=== PATIENT | female | born 1975 | race Caucasian/White ===

== ENCOUNTER → 2017-07-28 14:14 | Outpatient (CLI) | payer BC, SELFPAY ==
--- NOTE | 2017-07-28 14:20 | RAD_ITS ---
STUDY: X-RAY - LEFT HAND REASON FOR EXAM: Female, 41 years old. Pain in the second finger TECHNIQUE: Three view(s) of the hand were obtained. COMPARISON: None. FINDINGS: Bones: There are no acute osseous abnormalities. Joints: The visualized joints are unremarkable. Soft tissues: The soft tissues are unremarkable. Foreign body: None RAD/Hand Min 3 Views IMPRESSION: No significant abnormalities are seen radiographically in the left hand. Electronically Signed: Keely Armendariz MD at 8:38 EDT Tel Direct: [phone], Service support ,
== END ==
PROVIDERS: Family Provider Family Medicine; PCP Family Medicine; Visit Provider Family Medicine
DX: M79.645 Pain in left finger(s) (principal)
CPT/HCPCS: 73130

== ENCOUNTER → 2017-08-25 15:53 | Outpatient (CLI) | payer BC, SELFPAY ==
--- NOTE | 2017-08-25 15:55 | BI_ITS ---
MAMMOGRAPHY - BILATERAL SCREENING REASON FOR EXAM: Female, 42 years old. Routine annual screening examination. PERTINENT HISTORY: Mother with breast cancer. TECHNIQUE: Digital bilateral breast sosa (3D mammographic acquisition) in the CC and MLO projections. 2-D mediolateral oblique (MLO) and craniocaudad (CC) views of both breasts were obtained. CAD: Full Field Digital Mammography with Computer Added Detection was performed. COMPARISON: None. Baseline examination. FINDINGS: Breast Composition: There are scattered areas of fibroglandular density. There are no dominant masses or suspicious calcifications. No other significant abnormalities are identified. BI/SCREENING MAMM (CAD), BILAT IMPRESSION: Negative screening mammogram. Yearly followup mammogram recommended. (A) ASSESSMENT CATEGORY: BIRADS Category 1: Negative. A letter regarding these results will be sent to the patient by the facility within 30 days. Approximately 10% of breast cancers are not detected by mammography. A normal mammogram should not delay biopsy of a clinically suspicious abnormality. [id number] Electronically Signed: Gordon Grant MD at 8:34 EDT Tel [phone], Service support ,
== END ==
PROVIDERS: Family Provider Family Medicine; PCP Family Medicine; Visit Provider Obstetrics & Gynecology
DX: Z12.31 Encounter for screening mammogram for malignant neoplasm of breast (principal)
CPT/HCPCS: 77063; 77067

== ENCOUNTER → 2017-10-14 11:34 | Outpatient (CLI) | payer BC, SELFPAY ==
[2017-10-16 13:03] LABS: HPV Reflexed? NOT INDICATED
== END ==
PROVIDERS: Visit Provider Obstetrics & Gynecology
DX: Z12.4 Encounter for screening for malignant neoplasm of cervix (principal)
CPT/HCPCS: 88175; G0145

== ENCOUNTER → 2018-04-15 07:57 | Outpatient (CLI) | payer BC, SELFPAY ==
--- NOTE | 2018-04-15 08:01 | US_ITS ---
STUDY: ULTRASOUND OF THE FEMALE PELVIS - COMPLETE REASON FOR EXAM: Female, 42 years old. Irregular bleeding LMP: TECHNIQUE: Transabdominal and Transvaginal TECHNICAL QUALITY: Adequate. COMPARISON: None. FINDINGS: The uterus is anteverted and is in a midline position. The uterus measures 12.7 x 5.6 x 5.0 cm. There are Nabothian cysts of the cervix. The endometrium measures 5 mm in thickness, and is hyperechoic. There is no demonstrated endometrial mass. There is heterogeneous echotexture of the myometrium with 1.6 cm hypoechoic mass consistent with fibroid. I.U.D. - The patient does not have an I.U.D. The right ovary is visualized. The right ovary measures 3.6 x 1.9 x 1.8 cm. There is no right ovarian cyst or ovarian mass. There is no visualized right adnexal mass or complex lesion. There is normal arterial and normal venous vascularity. The left ovary is visualized. The left ovary measures 3.0 x 2.5 x 2.3 cm. There is no left ovarian cyst or ovarian mass. There is no visualized left adnexal mass or complex lesion. There is normal arterial and normal venous vascularity. There is no fluid in the cul-de-sac. The pre void volume of the bladder was 360 ml. US/Transvaginal Non- IMPRESSION: Uterine fibroid. Electronically Signed: Sam Velez MD at 9:58 EST , Service support ,
--- NOTE | 2018-04-15 08:01 | US_ITS ---
STUDY: ULTRASOUND OF THE FEMALE PELVIS - COMPLETE REASON FOR EXAM: Female, 42 years old. Irregular bleeding LMP: TECHNIQUE: Transabdominal and Transvaginal TECHNICAL QUALITY: Adequate. COMPARISON: None. FINDINGS: The uterus is anteverted and is in a midline position. The uterus measures 12.7 x 5.6 x 5.0 cm. There are Nabothian cysts of the cervix. The endometrium measures 5 mm in thickness, and is hyperechoic. There is no demonstrated endometrial mass. There is heterogeneous echotexture of the myometrium with 1.6 cm hypoechoic mass consistent with fibroid. I.U.D. - The patient does not have an I.U.D. The right ovary is visualized. The right ovary measures 3.6 x 1.9 x 1.8 cm. There is no right ovarian cyst or ovarian mass. There is no visualized right adnexal mass or complex lesion. There is normal arterial and normal venous vascularity. The left ovary is visualized. The left ovary measures 3.0 x 2.5 x 2.3 cm. There is no left ovarian cyst or ovarian mass. There is no visualized left adnexal mass or complex lesion. There is normal arterial and normal venous vascularity. There is no fluid in the cul-de-sac. The pre void volume of the bladder was 360 ml. US/Pelvic (Non ) IMPRESSION: Uterine fibroid. Electronically Signed: Sam Velez MD at 9:58 EST , Service support ,
[2018-04-15 09:41] LABS: T4 Free Direct 1.45 ng/dL (0.76-1.46); Thyroid Stim Hormone (TSH) 1.14 uIU/mL (0.358-3.74)
--- OUTSIDE RECORDS SUMMARY | 2018-06-10 07:45 | XMS RPT_ITS ---
:1975 Author Organization OHIP Support Name Relationship Address Phone BIRGITKYARA Unavailable [address] + [place] [address] MIRAMONTES LIVESTOCK Unavailable [address] + [place] [address] KYARA GENAO Unavailable [address] + [place] [address] [employer]IRAMONTES [employer]IVEST[employer] Unavailable [address] + [place] [address] KYARA GENAO Unavailable [address] + [place] [address] MIRAMONTES LIVESTOCK Unavailable [address] + [place] [address] KYARA GENAO Unavailable [address] + [place] [address] MIRAMONTES LIVESTOCK Unavailable [address] + [place] [address] [employer] Unavailable [address] [place] [address] KYARA GENAO Unavailable [address] + [place] [address] [employer] Unavailable [address] + [address] [place] [address] KYARA GENAO Unavailable [address] + [place] [address] [employer] Unavailable [address] + [address] [place] [address] KYARA GENAO Unavailable [address] + [place] [address] [employer] Unavailable [address] + [address] [place] [address] KYARA GENAO Unavailable [address] + [place] [address] [employer] Unavailable [address] + [address] [place] [address] KYARA GENAO Unavailable [address] + [place] [address] [employer] Unavailable [address] + [address] [place] [address] KYARA GENAO Unavailable [address] + [place] [address] Care Team Providers Name Role Phone Roxann Haji Attending Unavailable Jerome, Roberto Referring Unavailable Marcanthony, Roxann Attending Unavailable Marcanthony, Roxann Referring Unavailable Jerome, Roberto Primary Care Unavailable Jerome, Roberto Attending Unavailable Jerome, Roberto Referring Unavailable Jerome, Roberto Primary Care Unavailable Brandon Blankenship Attending Unavailable Jerome, Roberto Primary Care Unavailable Socorro Quiles Attending Unavailable Jerome, Roberto Referring Unavailable Marckenyaony, Roxann Attending Unavailable Marcanthony, Roxann Referring Unavailable Jerome, Roberto Primary Care Unavailable Brandon Blankenship Attending Unavailable Kb, Socorro Attending Unavailable Jerome, Roberto Referring Unavailable Marckenyaony, Roxann Attending Unavailable Jerome, Roberto Referring Unavailable Marckenyaony, Roxann Attending Unavailable Marcanthony, Roxann Referring Unavailable Jerome, Roberto Primary Care Unavailable PROBLEMS PROBLEMS DATE TYPE CONDITION / CODE ATTENDING STATUS SOURCE 04/27/2018 Unknown J06.9 - Acute Marcanthony, Active [place] upper respiratory Roxann Formerly [facility] infection, Hospital unspecified / Repository J06.9(ICD-10) 04/15/2018 Unknown N93.9 - Abnormal Marcanthony, Active [place] uterine and Roxann Community vaginal bleeding, Hospital unspecified / Repository N93.9(ICD-10) 10/15/2017 Unknown Z12.4 - Encounter Brandon Blankenship Active [place] for screening for Community malignant Hospital neoplasm of Repository cervix / Z12.4(ICD-10) 07/28/2017 Unknown M79.645 - Pain in JeromeRoberto collins Active [place] left finger(s) / Community M79.645(ICD-10) Hospital Repository PROCEDURES PROCEDURES No Procedure Records FoundRESULTS RESULTS LIPID PROFILE Collected: 05/04/2018 Status: F Source: [place] 8:04 AM [facility] REPOSITORY TYPE CODE TESTS RESULT OUT OF RANGE REFERENCE UNITS LAB L501.4900 200 mg/dL High CHOL 267 Result Comment: <200 mg/dL Desirable 200-240 mg/dL Borderline >240 mg/dL High Risk LAB L501.5000 mg/dL High TRIG 250 Result Comment: The drugs N-Acetylcysteine and Metamizole may falsely depress this assay. Serum Triglycerides Reference Interval Normal <150 mg/dL Borderline high 150 - 199 mg/dL High 200 - 499 mg/dL Very High > or = 500 mg/dL LAB L501.6400 mg/dL Normal HDL 66 Result Comment: The drugs N-Acetylcysteine and Metamizole may falsely depress this assay. Reference Range HDL <40 mg/dL Low HDL Cholesterol HDL >or= 60 mg/dL High HDL Cholesterol LAB L501.6500 0-130 mg/dL High LDL 151 LAB L501.6600 5-40 mg/dL High VLDL 50 Performed By: #### L500.4100, L501.0100 #### [facility] [address] [place], [address] GLUCOSE Collected: 05/04/2018 Status: F Source: [place] 8:04 AM [facility] REPOSITORY TYPE CODE TESTS RESULT OUT OF RANGE REFERENCE UNITS LAB L501.0100 74-106 mg/dL Normal GLU 93 Result Comment: Please note revised GLUCOSE reference range effective 2017. Performed By: #### L500.4100, L501.0100 #### [facility] [address] [place], [address] [employer] OFFICE VISIT Observed: 04/27/2018 Status: F Source: [place] REPORT 10:09 AM [facility] REPOSITORY [facility] [address] [place] [address] OFFICE VISIT Date of Service: 04/27/18 MR#: [id number] Acct: [id number] Name: EMILEE GENAO Rep #: [id number] : 1975 Provider: Roxann Haji MD Age/Sex: 42/F Location: [facility] [place] Status: Signed Intake Vital Signs04/27/18 Height 5 ft 5 in 04/27/18 Blood Pressure 122/78 H Intake Visit Reasons: EMB Teachers' Assistant Required: No Is patient in pain?: No Allergies penicillin V Allergy (Intermediate, Verified 04/27/18 08:10) Nausea, stomach cramps, hives Medications loratadine 10 mg tablet 10 mg PO QDAY #30 tab 07/14/17 [Rx Confirmed 04/27/18] montelukast 10 mg tablet 10 mg PO QHS #90 tab 08/28/17 [Rx Confirmed 04/27/18] azelastine-fluticasone 137 mcg-50 mcg/spray nasal spray 1 spray INTRANASAL Q12H 09/30/17 [History Confirmed 04/27/18] levothyroxine 175 mcg tablet 175 mcg PO QDAY 09/30/17 [History Confirmed 04/27/18] ranitidine 150 mg tablet 150 mg PO QDAY 09/30/17 [History Confirmed 04/27/18] cyclobenzaprine 10 mg tablet 10 mg PO TID PRN #30 tab 03/30/18 [Rx Confirmed 04/27/18] misoprostol 200 mcg tablet 200 mcg PO .complex #2 tab 04/26/18 [Rx Confirmed 04/27/18] norgestimate 0.25 mg-ethinyl estradiol 35 mcg tablet 1 tab PO QDAY #84 tab 04/27/18 [Rx Confirmed 04/27/18] Is last menstrual period known: No Post menopausal: No Patient : No : No PFSH PFSH Medical History Thyroid dysfunction (Chronic) Elevated cholesterol (Chronic) Chronic cough (Chronic) Allergic rhinitis (Chronic) PND (post-nasal drip) (Chronic) Headache (Chronic) Upper respiratory infection (Resolved) Endometriosis (Acute) Surgical History History of endometrial ablation (Resolved) History of dilatation and curettage (Resolved) History of section (Resolved) History of tonsillectomy and adenoidectomy (Resolved) Family History Father Cancer Mother Hypertension Grandmother Cancer Lung CA Breast cancer Social History Smoking Status: Never smoker second hand exposure: No alcohol intake: current alcohol intake frequency: holidays/special occasions only substance use type: does not use caffeine: Yes what type of physical activity do you participate in: none additional social history: Wayne Garza Patient works at [employer] Pregancy History 5 Elective abortions Hx Para 1 Spontaneous abortions Past Pregnancies Del. DateName GA/Weeks Outcome Route Bth WeighInfant GeLabor LgtAnesthesiDel LocatProvider FOB t n h a n HPI EMB: Details: EMILEE GENAO is a 42 year old who presents for fu of AUB. she has heavy painful and irregular menses. she has a history of endometriosis. she has had multiple laparoscopies and US shows adenomyosis. she has had an ablation in the past. Female Reproductive History Cycle Length: 21-35 Bleeding Duration: 5 associated symptoms: dysmenorrhea, bloating Questions: Metorrhagia: No, Sexually active: Yes, Dyspareunia: No, PCB: No ROS Const Constitutional: Reports system reviewed and no additional complaints, except as docu; denies chills, fever(s), weight loss or weight gain GI GI: Reports cramping, bloating and as per HPI; denies vomiting, nausea, constipation or abdominal pain : Reports as per HPI; denies vaginal dryness, vaginal discharge, urinary urgency, urinary frequency or urinary incontinence Exam Const General: cooperative, healthy appearing, comfortable, well developed Orientation: alert [facility] Head: normal to inspection Resp Effort AND Inspection: normal respiratory effort GI Inspection: normal to inspection, non-distended Palpation: soft, no hepatosplenomegaly, no guarding External Female Exam: normal external appearance, normal appearance of the urethra Urethra: normal appearance of the urethra Speculum Exam - Vagina: normal appearance of the vagina, normal vaginal discharge, no lesions Speculum Exam - Cervix: normal appearance of the cervix, nontender Bimanual Exam- Vagina AND Uterus: No cervical tenderness, normal bimanual exam, uterine mobility normal, uterine consistency normal, uterine shape normal, uterine size normal, uterus non-tender Bimanual Exam- Adnexa, other: normal adnexae, no adnexal masses Office Procedures Endometrial Biopsy Endometrial Biopsy Test: Yes Not Applicable Consent Signed: Yes Time out checklist: patient, procedure, site marked/identified, positioning of patient, supplies available, allergies confirmed, team agrees on procedure Time out time: 10:07 tenaculum used: Yes dilator used: No Details: Cervix prepped with betadine and pipelle inserted into uterus without complication. Specimen obtained and sent to lab for analysis. All instruments removed from vagina without complications. Excellent hemostasis noted. Assessment AND Plan Problems 1. Abnormal uterine bleeding N93.9 continuous ocp, if no improvement consider depot lupron or LAVHBS(O) 2. Endometriosis N80.9 Plan discussed options and will plan for continuous ocp fu in 3 months Orders Orders: Medications New: norgestimate-ethinyl estradiol 0.25-35 mg-mcg (Sprintec (28)) 1 tab PO QDAY 84 tabs 5RF take only active pills, discard inactive and start new pack. if bleeding is longer > 7 days take four days off and restart active pills. Coding Level of Care Code Off vis,est,level 4 Diagnoses Abnormal uterine bleeding N93.9 Endometriosis N80.9 Additional Codes Endometrial Biopsy (67731) 04/27/18 1009 <Electronically signed by Roxann Haji MD> Date Roxann Haji MD Cosigner Signature: Date (if applicable) CC: ENDOMETRIAL BX/CURETTINGS Observed: 04/27/2018 Status: F Source: [place] 12:00 AM [facility] REPOSITORY Patient: EMILEE GENAO : 1975 (42/F) Acct Num: [id number] Phys: Adithya KOVACS,Roxann Unit Num: [id number] Loc: [facility] Specimen: [id number] Received: 04/27/18 1418 Spec Type: ENDOM BX/C TISSUES 1 TISSUES: Endometrium, NOS GROSS DESCRIPTION Received is one container labeled with the patient's name and not further designated. The specimen consists of multiple fragments of hemorrhagic soft tissue that in aggregate measure 2.5 x 1 x 0.1 cm. The specimen is totally submitted in one cassette. / SJ:osiel 04/27/18 TC:5 CPT: 73428 HEADER OPERATION: Endometrial biopsy PRE-OP DIAGNOSIS: Abnormal uterine bleeding TISSUE SUBMITTED: Endometrial lining MICROSCOPIC DESCRIPTION Slides are reviewed. MICROSCOPIC DIAGNOSIS Endometrium, biopsy: Superficial strips of secretory endometrium. Rare strips of benign superficial endocervix. AM:osiel 04/28/18 Signed [facility] 04/28/18 <signature on file> Performed By: #### PEMB #### [facility] [address] [place], [address] THYROID STIM HORMONE Collected: 04/15/2018 Status: F Source: [place] (TSH) 8:44 AM [facility] REPOSITORY TYPE CODE TESTS RESULT OUT OF RANGE REFERENCE UNITS LAB L501.9520 0.358-3.74 uIU/mL Normal TSH 1.14 Performed By: #### L501.9520, L506.0400 #### [facility] [address] [facility] [place], [address] T4 FREE DIRECT Collected: 04/15/2018 Status: F Source: [place] 8:44 AM [facility] REPOSITORY TYPE CODE TESTS RESULT OUT OF RANGE REFERENCE UNITS LAB L506.0400 0.76-1.46 ng/dL Normal T4 FREE 1.45 DIRECT Performed By: #### L501.9520, L506.0400 #### [facility] [address] [facility] [place], [address] PELVIC (NON ) Observed: 04/15/2018 Status: F Source: [place] 8:01 AM [facility] REPOSITORY [facility] Imaging Services [address] [place] [address] Pelvic (Non ) MR#: [id number] Acct: [id number] Name: EMILEE GENAO Rep #: [id number] : 1975 F 42 From: Sam Velez MD PCP: Roberto Cano MD Status: REG CLI Study: Pelvic (Non ) Date of Exam: 04/15/18 Exam# [id number] Ordering Dr: Roxann Haji MD STUDY: ULTRASOUND OF THE FEMALE PELVIS - COMPLETE REASON FOR EXAM: Female, 42 years old. Irregular bleeding LMP: TECHNIQUE: Transabdominal and Transvaginal TECHNICAL QUALITY: Adequate. COMPARISON: None. FINDINGS: The uterus is anteverted and is in a midline position. The uterus measures 12.7 x 5.6 x 5.0 cm. There are Nabothian cysts of the cervix. The endometrium measures 5 mm in thickness, and is hyperechoic. There is no demonstrated endometrial mass. There is heterogeneous echotexture of the myometrium with 1.6 cm hypoechoic mass consistent with fibroid. I.U.D. - The patient does not have an I.U.D. The right ovary is visualized. The right ovary measures 3.6 x 1.9 x 1.8 cm. There is no right ovarian cyst or ovarian mass. There is no visualized right adnexal mass or complex lesion. There is normal arterial and normal venous vascularity. The left ovary is visualized. The left ovary measures 3.0 x 2.5 x 2.3 cm. There is no left ovarian cyst or ovarian mass. There is no visualized left adnexal mass or complex lesion. There is normal arterial and normal venous vascularity. There is no fluid in the cul-de-sac. The pre void volume of the bladder was 360 ml. US/Pelvic (Non ) IMPRESSION: Uterine fibroid. Electronically Signed: Sam Velez MD at 9:58 EST , Service support , CC: Roberto Cano MD; Roxann Haji MD Institutional Nutrition Consultant: Signed TRANSVAGINAL Observed: 04/15/2018 Status: F Source: [place] NON- 8:01 AM [facility] REPOSITORY [facility] Imaging Services [address] [place] [address] Transvaginal Non- MR#: [id number] Acct: [id number] Name: EMILEE GENAO Rep #: [id number] : 1975 F 42 From: Sam Velez MD PCP: Roberto Cano MD Status: REG CLI Study: Transvaginal Non- Date of Exam: 04/15/18 Exam# [id number] Ordering Dr: Roxann Haji MD STUDY: ULTRASOUND OF THE FEMALE PELVIS - COMPLETE REASON FOR EXAM: Female, 42 years old. Irregular bleeding LMP: TECHNIQUE: Transabdominal and Transvaginal TECHNICAL QUALITY: Adequate. COMPARISON: None. FINDINGS: The uterus is anteverted and is in a midline position. The uterus measures 12.7 x 5.6 x 5.0 cm. There are Nabothian cysts of the cervix. The endometrium measures 5 mm in thickness, and is hyperechoic. There is no demonstrated endometrial mass. There is heterogeneous echotexture of the myometrium with 1.6 cm hypoechoic mass consistent with fibroid. I.U.D. - The patient does not have an I.U.D. The right ovary is visualized. The right ovary measures 3.6 x 1.9 x 1.8 cm. There is no right ovarian cyst or ovarian mass. There is no visualized right adnexal mass or complex lesion. There is normal arterial and normal venous vascularity. The left ovary is visualized. The left ovary measures 3.0 x 2.5 x 2.3 cm. There is no left ovarian cyst or ovarian mass. There is no visualized left adnexal mass or complex lesion. There is normal arterial and normal venous vascularity. There is no fluid in the cul-de-sac. The pre void volume of the bladder was 360 ml. US/Transvaginal Non- IMPRESSION: Uterine fibroid. Electronically Signed: Sam Velez MD at 9:58 EST , Service support , CC: Roberto Cano MD; Roxann Haji MD Institutional Nutrition Consultant: Signed [employer] OFFICE VISIT Observed: 03/30/2018 Status: F Source: [place] REPORT 2:06 AM [facility] [address] [place] [address]. [address] [place] [address] OFFICE VISIT Date of Service: 03/25/18 MR#: [id number] Acct: [id number] Name: EMILEE GENAO Rep #: [id number] : 1975 Provider: Roxann Haji MD Age/Sex: 42/F Location: [facility] [place] Status: Signed Intake Vital Signs03/25/18 Height 5 ft 5 in 03/25/18 Weight: 256 lb 03/25/18 Body Mass Index (BMI) 42.5 Intake Visit Reasons: DISCUSS HORMONES Chief Complaint: Irregular Menses, Hormone Consult Teachers' Assistant Required: No Is patient in pain?: No Allergies penicillin V Allergy (Intermediate, Verified 03/25/18 16:38) Nausea, stomach cramps, hives Medications loratadine 10 mg tablet 10 mg PO QDAY #30 tab 07/14/17 [Rx Confirmed 03/25/18] montelukast 10 mg tablet 10 mg PO QHS #90 tab 08/28/17 [Rx Confirmed 03/25/18] azelastine-fluticasone 137 mcg-50 mcg/spray nasal spray 1 spray INTRANASAL Q12H 09/30/17 [History Confirmed 03/25/18] levothyroxine 175 mcg tablet 175 mcg PO QDAY 09/30/17 [History Confirmed 03/25/18] ranitidine 150 mg tablet 150 mg PO QDAY 09/30/17 [History Confirmed 03/25/18] cyclobenzaprine 10 mg tablet 10 mg PO TID PRN #30 tab 03/30/18 [Rx Confirmed 03/30/18] Is last menstrual period known: Yes Last Menstral Period: 03/18/18 Post menopausal: No Patient : No : No [facility] Medical History Thyroid dysfunction (Chronic) Elevated cholesterol (Chronic) Chronic cough (Chronic) Allergic rhinitis (Chronic) PND (post-nasal drip) (Chronic) Headache (Chronic) Upper respiratory infection (Resolved) Surgical History History of endometrial ablation (Resolved) History of dilatation and curettage (Resolved) History of section (Resolved) History of tonsillectomy and adenoidectomy (Resolved) Family History Father Cancer Mother Hypertension Grandmother Cancer Lung CA Breast cancer Social History Smoking Status: Never smoker second hand exposure: No alcohol intake: current alcohol intake frequency: holidays/special occasions only substance use type: does not use caffeine: Yes what type of physical activity do you participate in: none additional social history: Wayne Garza Patient works at [employer] HPI DISCUSS HORMONES: Details: EMILEE GENAO is a 42 year old who presents for hormonal issues. she has a history of infertility and endometriosis. she has had adhesiolysis in the past multiple time. she has a history of severe lower pelvic pain and dysmenorrhea. she has had an ablation and didn't have bleeding for 7 years and then now she will have a period for every 1-2 months and it lasts two weeks. she hasn't had an ultrasound. she hasn't had anything checked. Female Reproductive History Last Menstral Period: 03/18/18 Cycle Length: 21-35 Bleeding Duration: 14 Questions: PCB: Yes (did previously) Menopausal Symptoms: No hot flashes, No night sweats, No weight change, No mood changes, No difficulty concentrating, No sleep problems, No change in libido Pregancy History 5 Elective abortions Hx Para 1 Spontaneous abortions Past Pregnancies Del. DateName GA/Weeks Outcome Route Bth WeighInfant GeLabor LgtAnesthesiDel LocatProvider FOB t n h a n ROS Const Constitutional: Denies night sweats ENT ENT: Denies dry mouth GI GI: Reports as per HPI and abdominal pain; denies vomiting, nausea or constipation : Denies hot flashes Psych Psych: Denies difficulty concentrating or change in sex drive Exam Const General: cooperative, healthy appearing, comfortable, no acute distress, well developed Nutritional Appearance: average body habitus Orientation: alert HENMT Head: normal to inspection, normocephalic Ears: hearing grossly normal bilaterally, external ears normal Nose: external nose normal, nares normal Face and sinus: normal facial exam Neck Neck: normal visual inspection, trachea midline, no lymphadenopathy Thyroid: thyroid normal Resp Effort AND Inspection: normal respiratory effort Musc Other: gross motor intact no deficits, full bilateral strength Skin General: no rashes or lesions noted Neuro Motor: muscle tone normal throughout Assessment AND Plan Problems 1. Abnormal uterine bleeding N93.9 cbc tsh ultrasound EMB discussed flexeril PRN, offered hormones, lysteda, may need surgery Plan recommend evaluation of AUB and fu for emb and discuss final therapy Orders Orders: Medications New: Coding Level of Care Code Off vis,new,level 3 Diagnoses Abnormal uterine bleeding N93.9 03/30/18 0206 <Electronically signed by Roxann Haji MD> Date Roxann Haji MD Cosigner Signature: Date (if applicable) CC: PULMONARY VISIT REPORT Observed: 03/12/2018 Status: F Source: [place] 4:09 PM [facility] REPOSITORY [facility] [address] [place] [address] OFFICE VISIT Date of Service: 03/12/18 MR#: [id number] Acct: [id number] Name: EMILEE GENAO Rep #: [id number] : 1975 Provider: Socorro Quiles Age/Sex: 42/F Location: [facility] [place] Status: Signed Assessment AND Plan 1. Acute non-recurrent maxillary sinusitis J01.00 Plan Somewhat improved, Kenalog injection in the office today followed by a steroid burst. She has been encouraged to contact the office with an update on Thursday. 2. Allergic rhinitis due to animal hair and dander J30.81 Plan She now has a new job and after this acute exacerbation may likely have better control of her symptoms. Possibly can wean some medications. No change in maintenance medications until acute phase has passed. Follow-up in 6 months. Plan Detail Other Orders Orders: Other Medications Discontinued: Kenalog (triamcinolone acetonide) [id number] mg (1.5 mL) IM ONCE 1.5 mL 0RF NS J06.9 d Reason: Office Medication has been Documented as given Follow Up 6 Months ([facility]) HPI Follow up after ATB: Chief Complaint: Chest tightness HPI Comments Details: This patient presents the office today for an acute follow- up after recently being treated for a sinus infection. She has 2 more days remaining of her doxycycline. She reports that her cough has improved but she continues to experience chest congestion and nasal drainage. She also continues to have nasal congestion. She reports that the ear pain she was experiencing previously has completely resolved. Her cough is now dry, and sputum production has ceased. She has tried gbdc-lai-lctuggh Mucinex for the chest congestion as she feels as though she should be to ask able to expectorate some sputum. The Mucinex in the beginning was somewhat helpful but recently has not been effective. She is also using Dymista as needed for the postnasal drip and has found it to be somewhat effective. She is compliant with Singulair as previously prescribed, as well as Zyrtec. She is not currently on any maintenance inhalers. She has not needed her rescue inhaler. She has not experienced any fever, chills or body aches. She does report that she has been exposed to ill contacts, her has similar symptoms. Intake Vital Signs03/12/18 Height 5 ft 5 in Intake Visit Reasons: Follow up after ATB Teachers' Assistant Required: No Accompanied by: Self Is patient in pain?: No Allergies penicillin V Allergy (Intermediate, Verified 03/08/18 14:15) Nausea, stomach cramps, hives Medications loratadine 10 mg tablet 10 mg PO QDAY #30 tab 07/14/17 [Rx Confirmed 03/08/18] montelukast 10 mg tablet 10 mg PO QHS #90 tab 08/28/17 [Rx Confirmed 03/08/18] azelastine-fluticasone 137 mcg-50 mcg/spray nasal spray 1 spray INTRANASAL Q12H 09/30/17 [History Confirmed 03/08/18] ekczsujeix-aegjprisqgqre-vwqxiugn 50 mg-300 mg-40 mg capsule 1 cap PO Q4H PRN 09/30/17 [History Confirmed 03/08/18] levothyroxine 175 mcg tablet 175 mcg PO QDAY 09/30/17 [History Confirmed 03/08/18] ranitidine 150 mg tablet 150 mg PO QDAY 09/30/17 [History Confirmed 03/08/18] doxycycline hyclate 100 mg tablet 100 mg PO BID #20 tab 03/03/18 [Rx Confirmed 03/08/18] [facility] Medical History Thyroid dysfunction (Chronic) Elevated cholesterol (Chronic) Chronic cough (Chronic) Allergic rhinitis (Chronic) PND (post-nasal drip) (Chronic) Headache (Chronic) Upper respiratory infection (Resolved) Surgical History History of endometrial ablation (Resolved) History of dilatation and curettage (Resolved) History of section (Resolved) History of tonsillectomy and adenoidectomy (Resolved) Family History Father Cancer Mother Hypertension Grandmother Cancer Lung CA Breast cancer Social History Smoking Status: Never smoker second hand exposure: No alcohol intake: current alcohol intake frequency: holidays/special occasions only substance use type: does not use caffeine: Yes what type of physical activity do you participate in: none Review of Systems Const CONSTITUTIONAL: Negative anorexia, body ache, chills, daytime sleepiness, fever(s), night sweats, oral thrush, stops breathing during sleep, weight loss, sleeping in chair, fatigue, weight loss, weight gain, frequent colds, seasonal allergies, other, headache(s) or orthopnea EETM Ear Nose Throat Mouth: Positive hearing normal, nasal congestion and nasal discharge; negative hard of hearing, hoarseness, dry mouth in morning, change in vision, itchy eyes, eye pain, swallowing Difficulty, ear pain, nose bleed, headache(s), mouth pain, post nasal drip, sinus pain, sinus pressure, sore throat or other Cardio Cardiovascular: Negative chest pain, chest pain at rest, chest pain with activity, irregular heart rhythm, edema, shortness of breath when lying down, palpitations, murmur or other Resp Respiratory: Positive as per HPI, chest congestion and cough cough: Positive non-productive; negative pain with cough, wheezing, chest tightness, pain on inspiration, inhalers, increase use of rescue inhalers, snoring, apnea, other or shortness of breath Gastro Gastrointestional: Negative bloody stools, change in appetite, difficulty swallowing, reflux, hematemesis, melena stool, loose stool, constipation or other Genitourinary: Negative blood in urine, nocturia, pain with urination or other Musc Musculoskeletal: Negative body pain, back pain, neck pain or other Skin/Breast Skin/Breast: Negative dry skin, itching, rash, unusual bruising, breast lump or other Neuro Neurological: Negative restless legs, confusion, weakness or other Psych Psychocological: Negative abnormal sleep pattern, anxiety, thoughts of hurting self/others, hopelessness or other Lymph Lymphatic: Negative easy bleeding, easy bruising, swollen lymph nodes or other Exam Const Constitutional: Positive conversant, cooperative, in no acute respiratory distress, healthy appearing, well developed, well nourished, good hygiene and obese Head Head: Positive normocephalic, atraumatic and maxillary sinus tenderness; negative cyanosis of lips/distal nose or frontal sinus tenderness Eyes Eye: Positive clear conjunctiva; negative nystagmus or scleral abnormality Ears Ear: Positive hearing normal and external ears normal; negative hard of hearing Nose Nose: Positive external nose normal and no nasal discharge; negative epistaxis Mouth Mouth: Positive oral mucosae normal, no lesions, good dentition and posterior oropharynx is adequate; negative post nasal drip, malodorous breath or oral thrush present Mallampati Score: II: Mallampati Score Neck Neck: Positive normal visual inspection, full ROM, trachea midline and thick neck; negative lymphadenopathy, JVD or tender Chest Wall Chest: Positive normal inspection of the chest and symmetric chest movement; negative increased A/P diameter Resp lung sounds: Positive diminished, wheeze present on forced exhalation, normal expiratory time and normal respiratory effort; negative wheezes, rhonchi, rales or dullness to percussion Cardio Cardiac: Positive regular rate, regular rhythm, S1 normal and S2 normal; negative murmur GI GI: Positive normal to inspection and obese; negative distended Genitourinary: Positive deferred Musc Musculoskeletal: Positive steady gait and ROM normal; negative kyphosis or scoliosis Skin Pulmonary Skin Exam: Positive intact; negative rash Pulses Pulse: Yes pulses normal x4 extremities Extremities Extremities: Yes capillary refill normal, No clubbing, No cyanosis, No edema Neuro Neurologic: Yes conversant, Yes no focal neuro deficits, Yes normal concentration, Yes understands questions, Yes cooperative, Yes normal cognition, Yes normal coordination Lymph Lymphatic: No lymphadenopathy, No tenderness, No cervical adenopathy Psych Appearance: Positive grossly normal, eye contact and well kempt Mental Status: Positive mental status grossly normal Mood: Positive congruent mood Affect: Positive normal affect Office Meds Abelardo Performing Provider: LUIS EDUARDO Bazan Administered by: Marissa Davila on 03/12/18 15:39 Dose Route Admin Location Lot Number Expiration Date NDC Pipe Fitter Gas Pipe 60 mg IM Rt gluteal [id number] 05/18/19 2364-7012-50 Lever Coding Level of Care Code Off vis,est,level 4 Diagnoses Acute non-recurrent maxillary sinusitis J01.00 Sinusitis location: maxillary Chronicity: acute Recurrence: non-recurrent Allergic rhinitis due to animal hair and dander J30.81 Allergic rhinitis trigger: animal hair and dander 03/12/18 1609 <Electronically signed by Socorro HOFF> Date Socorro HOFF Cosigner Signature: Date (if applicable) CC: Roberto Cano MD PAP IG W/REFLEX HR Collected: 10/14/2017 Status: F Source: [facility] HPV APTIMA 9:30 AM [facility] REPOSITORY Order Comment: CYTOLOGY INFORMATION: - CLINICAL INFORMATION: - DATE LMP/MENOPAUSE: 08/20/17 LMP - COLLECTION VIAL: Thin Prep Vial - PULP BEATER SOURCE: CERVICAL/ENDOCERVICAL - COLLECTION TECHNIQUE: BRUSH/SPATULA Specimen Comment: [id number] Specimen Comment: No. of containers..01 ThinPrep Vial TYPE CODE TESTS RESULT OUT OF RANGE REFERENCE UNITS LAB L7400.0800 . Normal DIAGN Comment Result Comment: NEGATIVE FOR INTRAEPITHELIAL LESION AND MALIGNANCY. LAB L7400.0900 . Normal ADEQ Comment Result Comment: Satisfactory for evaluation. Endocervical and/or squamous metaplastic cells (endocervical component) are present. LAB L7400.1400 . Normal PERFORM Comment Result Comment: Rocio Paiz, Ball Sorter (ASCP) LAB L7400.2575 . Normal TEST METHOD Comment Result Comment: This liquid based ThinPrep(R) pap test was screened with the use of an image guided system. LAB L7400.2600 . Normal . COMM LAB L7400.2700 . Normal PAPSMR Comment Result Comment: The Pap smear is a screening test designed to aid in the detection of premalignant and malignant conditions of the uterine cervix. It is not a diagnostic procedure and should not be used as the sole means of detecting cervical cancer. Both false-positive and false-negative reports do occur. LAB L7400.2800 . Normal HPV RFLX Comment Result Comment: The HPV DNA reflex criteria were not met with this specimen result therefore, no HPV testing was performed. Performed at: - [facility] [id number] Investigation Officer: Misty Kumar MD, Phone: [phone] Performed By: #### L7400.0357 #### [facility] (refer to report for specific site) refer to report for address and phone number SCREENING MAMM (CAD), Observed: 08/25/2017 Status: F Source: [facility] 3:55 PM [facility] REPOSITORY [facility] Imaging Services [address] [place] [address] SCREENING MAMM (CAD), BILAT MR#: [id number] Acct: [id number] Name: EMILEE GENAO Rep #: [id number] : 1975 F 42 From: Gordon Grant MD PCP: Roberto Cano [facility] Study: SCREENING MAMM (CAD), BILAT Date of Exam: 08/25/17 Exam# [id number] Ordering Dr: Brandon Blankenship MD MAMMOGRAPHY - BILATERAL SCREENING REASON FOR EXAM: Female, 42 years old. Routine annual screening examination. PERTINENT HISTORY: Mother with breast cancer. TECHNIQUE: Digital bilateral breast sosa (3D mammographic acquisition) in the CC and MLO projections. 2-D mediolateral oblique (MLO) and craniocaudad (CC) views of both breasts were obtained. CAD: Full Field Digital Mammography with Computer Added Detection was performed. COMPARISON: None. Baseline examination. FINDINGS: Breast Composition: There are scattered areas of fibroglandular density. There are no dominant masses or suspicious calcifications. No other significant abnormalities are identified. BI/SCREENING MAMM (CAD), BILAT IMPRESSION: Negative screening mammogram. Yearly followup mammogram recommended. (A) ASSESSMENT CATEGORY: BIRADS Category 1: Negative. A letter regarding these results will be sent to the patient by the facility within 30 days. Approximately 10% of breast cancers are not detected by mammography. A normal mammogram should not delay biopsy of a clinically suspicious abnormality. [id number] Electronically Signed: Gordon Grant MD at 8:34 EDT Tel [phone], Service support , CC: Brandon Blankenship MD; Roberto Cano Institutional Nutrition Consultant: Signed HAND MIN 3 VIEWS Observed: 07/28/2017 Status: F Source: [place] 2:20 PM [facility] REPOSITORY [facility] Imaging Services [address] [place] [address] Hand Min 3 Views MR#: [id number] Acct: [id number] Name: EMILEE GENAO Rep #: [id number] : 1975 F 41 From: Keely Armendariz MD PCP: Roberto Cano Status: REG CLI Study: Hand Min 3 Views Date of Exam: 07/28/17 Exam# [id number] Ordering Dr: Roberto Cano MD STUDY: X-RAY - LEFT HAND REASON FOR EXAM: Female, 41 years old. Pain in the second finger TECHNIQUE: Three view(s) of the hand were obtained. COMPARISON: None. FINDINGS: Bones: There are no acute osseous abnormalities. Joints: The visualized joints are unremarkable. Soft tissues: The soft tissues are unremarkable. Foreign body: None RAD/Hand Min 3 Views IMPRESSION: No significant abnormalities are seen radiographically in the left hand. Electronically Signed: Keely Armendariz MD at 8:38 EDT Tel Direct: [phone], Service support , CC: Roberto Cano Institutional Nutrition Consultant: Signed ALLERGIES ALLERGIES DATE TYPE / CODE NAME / CODE REACTION SEVERITY SOURCE 04/27/2018 Drug penicillin Nausea, stomach [place] Allergy/416 V/[id number](RXNO cramps, hives Formerly [facility] 613390([facility] ED CT) Repository 10/16/2014 Drug No Known Unknown [place] Allergy/416 Allergies/[id number] Formerly [facility] 345147([facility] 388(RXNORM) [facility] ED CT) Repository ENCOUNTERS ENCOUNTERS ADMIT/DISCHARGE ACCOUNT ADMITTING ENCOUNTER LOCATION SOURCE NUMBER CLASS 05/04/2018 [id number] Ambulatory [facility] [facility] ing:PAVLAB Repository 04/27/2018 [id number] Ambulatory [place] [facility] ing:LABSPEC Repository 04/27/2018/ [id number] Ambulatory BMSBuilding:B [place] 8 9 [facility] Repository 04/15/2018 [id number] Ambulatory [place] [facility] ing:OPUS Repository 03/25/2018/ [id number] Ambulatory BMSBuilding:B [place] 8 9 [facility] Hospital Repository 03/12/2018/ [id number] Ambulatory BMSBuilding:B [place] 8 5 [facility] Hospital Repository 10/14/2017 [id number] Ambulatory [facility] [facility]res 3 [facility] ing:LABSPEC Repository 10/06/2017 [id number] Ambulatory BMSBuilding:B [place] 5 [facility] Hospital Repository 08/25/2017 [id number] Ambulatory [place] [facility] ing:OPBI Repository 07/28/2017 [id number] Ambulatory [place] [facility] ing:MTRAD Repository PAYERS PAYERS ENCOUNTER GUARANTOR PAYER SUBSCRIBER SOURCE 05/04/2018 EMILEE L Primary NAVYA SCHLAUCHDOB: [place] [id number] Insurance:[facility] [id number] Formerly [facility] [place]ENCE y Number: [place], [place] [id number] Repository [address]Jem: (330) cassie Date:9786-00-12ZJ 2420 () [address] [place] [address]DU: 05/04/2018 Secondary NOT GIVENUNK [place] Insurance:SELF PAY [facility] Number: Effective Repository Date:2018-05-04 04/27/2018 EMILEE Hill Primary NAVYA SCHCINDYUCHDOB: [place] [id number] Insurance:[facility] [id number] [facility] y Number: [place], [place] [id number] Repository 064[address]Zrz: (330) cassie Date:2690-16-03UP 6520 () [address], [place] [address]RH: 04/27/2018 Secondary NOT GIVENUNK [place] Insurance:SELF PAY [facility] Number: Effective Repository Date:2018-04-27 04/27/2018 EMILEE Hill Primary NAVYA RUIZUCHDOB: [place] [id number] Insurance:[facility] [id number] [facility] y Number: [place], [place] [id number] Repository 267[address]Ntn: (330) cassie Date:4352-36-01SR [phone] () [address], [place] [address]NH: 04/27/2018 Secondary NOT GIVENUNK [place] Insurance[facility]LF [facility]Y [facility]: Effective Repository Date:2018-04-27 04/15/2018 EMILEE L Primary NAVYA SCHLAUCHDOB: [place] [id number] Insurance:[employer] [id number] Community [place] y Number: [place], [place] [id number] Repository [address]Lqc: (330) cassie Date:6032-93-63ZJ [phone] () [address], [place] [address]AI: 04/15/2018 Secondary NOT GIVENUNK [place] Insurance:SELF PAY [facility] Number: Effective Repository Date:2018-03-29 03/25/2018 EMILEE L Primary NAVYA SCHLAUCHDOB: [place] [id number] Insurance:[employer] [id number] Formerly [facility] [place] y Number: [place], [place] [id number] Repository [address]Eef: (330) cassie Date:6707-32-93ZM [phone] () [address]QPKLA, [place] [address]RD: 03/25/2018 Secondary NOT GIVENUNK [place] Insurance:SELF PAY [facility] Number: Effective Repository Date:2018-02-18 03/12/2018 KYARA W Primary NAVYA SCHLAUCHDOB: [place] [id number] Insurance:[employer] [id number] Community [place] y Number: [place], [place] [id number] Repository [address]Wwf: (330) cassie Date:5438-95-62SB [phone] () [address]LPJ[address]PT, [place] [address]PP: 03/12/2018 Secondary NOT GIVENUNK [place] Insurance:SELF PAY [facility] Number: Effective Repository Date:2018-03-05 10/14/2017 KYARA W Primary NAVYA SCHLAUCHDOB: [place] [id number] Insurance:[employer] [id number] Community [place] y Number: [place], [place] [id number] Repository [address]Ilz: (330) cassie Date:7400-66-57ED [phone] () [address], [place] [address]RP: 10/14/2017 Secondary NOT GIVENUNK [place] Insurance:SELF PAY [facility] Number: Effective Repository Date:2017-10-14 10/06/2017 KYARA W Primary NAVYA SCHLAUCHDOB: [place] [id number] Insurance:[employer] [id number] Formerly [facility] [place] y Number: [place], [place] [id number] Repository [address]Nvy: (330) cassie Date:5350-00-35NT [phone] () [address]CYJ, [place] [address]HN: 10/06/2017 Secondary NOT GIVENUNK [place] Insurance:SELF PAY [facility] Number: Effective Repository Date:2017-04-27 08/25/2017 KYARA W Primary NAVYA SCHLAUCHDOB: [place] [id number] Insurance:[employer] [id number] Formerly [facility] [place] y Number: [place] [id number] Repository [address]Xby: (330) cassie Date:2715-79-81JP [phone] () [address]QWWCMHI, [place] [address]WP: 08/25/2017 Secondary NOT GIVENUNK [place] Insurance:SELF PAY [facility] Number: Effective Repository Date:2017-08-03 07/28/2017 KYARA W Primary NAVYA SCHLAUCHDOB: [place] [id number] Insurance:[employer] [id number] Community [place] y Number: [place] [id number] Repository [address]Dmd: (330) cassie Date:4963-46-74TF [phone] () [address]XPTNB, [place] [address]GO: 07/28/2017 Secondary NOT GIVENUNK [place] Insurance:SELF PAY [facility] Number: Effective Repository Date:2017-07-28
== END ==
PROVIDERS: Family Provider Family Medicine; PCP Family Medicine; Referring Provider Obstetrics & Gynecology; Visit Provider Obstetrics & Gynecology
DX: E07.9 Disorder of thyroid, unspecified (principal)
CPT/HCPCS: 36415; 76830; 76856; 84439; 84443; 93976

== ENCOUNTER → 2018-04-27 12:53 | Outpatient (CLI) | payer BC, SELFPAY ==
[2018-03-25 16:38] VITALS: BMI 42.5
--- NOTE | 2018-04-27 | EMB_PTH ---
PATIENT: EMILEE GENAO LOC: [facility] U#:[id number] AGE/SX: 49/F ROOM: RE04/27/[address]: Dr. Roxann Haji MD : 1975 BED: DIS: SPEC #: [id number] RECD: 04/27/18 14:18 STATUS: NEYMAR LAY #: [id number] EDUARDO: 04/27/18 00:[address]: Roxann Haji DEPT: SURGICAL PATHOLOGY RECD BY: Lalo Burroughs ENTERED: 04/27/18 14:18 SP TYPE: ENDOM BX/C OLLIE DR: Dr. Roberto Cano MD Tissues: Endometrium, NOS Procedures: Surgery Specimen Level IV HEADER OPERATION: Endometrial biopsy PRE-OP DIAGNOSIS: Abnormal uterine bleeding TISSUE SUBMITTED: Endometrial lining MICROSCOPIC DIAGNOSIS Endometrium, biopsy: Superficial strips of secretory endometrium. Rare strips of benign superficial endocervix. AM:osiel 04/28/18 MICROSCOPIC DESCRIPTION Slides are reviewed. GROSS DESCRIPTION Received is one container labeled with the patient's name and not further designated. The specimen consists of multiple fragments of hemorrhagic soft tissue that in aggregate measure 2.5 x 1 x 0.1 cm. The specimen is totally submitted in one cassette. / ANGIE:osiel 04/27/18 TC:5 CPT: 37742
--- OUTSIDE RECORDS SUMMARY | 2018-06-13 15:46 | XMS RPT_ITS ---
:1975 Author Organization OHIP Support Name Relationship Address Phone BIRGITKYARA Unavailable [address] + [place] [address] MIRAMONTES LIVESTOCK Unavailable [address] + [place] [address] KYARA GENAO Unavailable [address] + [place] [address] MIRAMONTES LIVESTOCK Unavailable [address] + [place] [address] KYARA GENAO Unavailable [address] + [place] [address] MIRAMONTES LIVESTOCK Unavailable [address] + [place] [address] KYARA GENAO Unavailable [address] + [place] [address] MIRAMONTES LIVESTOCK Unavailable [address] + [place] [address] [employer] Unavailable [address] [place] [address] KYARA GENAO Unavailable [address] + [place] [address] [employer] Unavailable [address] + [address] [place] [address] KYARA GENAO Unavailable [address] + [place] [address] [employer] Unavailable [address] + [address] [place] [place] [address] KYARA GENAO Unavailable [address] + [place] [address] [employer] Unavailable [address] + [address] [place] [address] KYARA GENAO Unavailable [address] + [place] [address] [employer] Unavailable [address] + [address] [place] [address] KYARA GENAO Unavailable [address] + [place] [address] [employer] Unavailable [address] + [address] [place] [address] KYARA GENAO Unavailable [address] + [place] [address] Care Team Providers Name Role Phone Roxann [...] 04/27/2018 Unknown J06.9 - Acute Marcanthony, Active [place] upper respiratory Roxann [facility] infection, Hospital unspecified / Repository J06.9(ICD-10) 04/15/2018 Unknown N93.9 - Abnormal Marcanthony, Active [place] uterine and Roxann Community vaginal bleeding, Hospital unspecified / Repository N93.9(ICD-10) 10/15/2017 Unknown Z12.4 - Encounter Brandon Blankenship Active [place] for screening for Community malignant Hospital neoplasm of Repository cervix / Z12.4(ICD-10) 07/28/2017 Unknown M79.645 - Pain in JeromeRoberto collins Active [place] left finger(s) / Community M79.645(ICD-10) Hospital Repository [...] 50 Performed By: #### L500.4100, L501.0100 #### [facility] [address] [place], [address] GLUCOSE Collected: 05/04/2018 Status: F Source: [place] 8:04 AM [facility] REPOSITORY TYPE CODE TESTS RESULT OUT OF RANGE REFERENCE UNITS LAB L501.0100 74-106 mg/dL Normal GLU 93 Result Comment: Please note revised GLUCOSE reference range effective 2017. Performed By: #### L500.4100, L501.0100 #### [facility] [address] [place], [address] BUSINESS TEACHER OFFICE VISIT Observed: 04/27/2018 Status: F Source: [place] REPORT 10:09 AM [facility] REPOSITORY [facility] [address] [place] [address] OFFICE VISIT Date of Service: 04/27/18 MR#: [id number] Acct: [id number] Name: EMILEE GENAO Rep #: [id number] : 1975 Provider: Roxann Haji MD Age/Sex: 42/F Location[place] [facility] Status: Signed Intake Vital Signs04/27/18 Height 5 ft 5 in 04/27/18 Blood Pressure 122/78 H Intake Visit Reasons: EMB Boston Cutter Required: No Is patient in pain?: No [...] social history: Wayne Garza Patient works at [employer] Pregancy History 5 Elective abortions Hx Para [...] healthy appearing, comfortable, well developed Orientation: alert [facility] Head: normal to inspection Resp Effort AND [...] N93.9 Endometriosis N80.9 Additional Codes Endometrial Biopsy (09457) 04/27/18 1009 <Electronically signed by Roxann Haji MD> Date Roxann Haji MD Cosigner Signature: Date (if applicable) CC: ENDOMETRIAL BX/CURETTINGS Observed: 04/27/2018 Status: F Source: [place] 12:00 AM [facility] REPOSITORY Patient: EMILEE GENAO : 1975 (42/F) Acct Num: [id number] Phys: Adithya KOVACS,Roxann Unit Num: [id number] Loc: [facility] Specimen: [id number] Received: 04/27/18 1418 Spec Type: ENDOM BX/C TISSUES 1 TISSUES: Endometrium, NOS GROSS DESCRIPTION Received is one container labeled with the patient's name and not further designated. The specimen consists of multiple fragments of hemorrhagic soft tissue that in aggregate measure 2.5 x 1 x 0.1 cm. The specimen is totally submitted in one cassette. / SJ:osiel 04/27/18 TC:5 CPT: 21448 HEADER OPERATION: Endometrial biopsy PRE-OP DIAGNOSIS: Abnormal uterine bleeding TISSUE SUBMITTED: Endometrial lining MICROSCOPIC DESCRIPTION Slides are reviewed. MICROSCOPIC DIAGNOSIS Endometrium, biopsy: Superficial strips of secretory endometrium. Rare strips of benign superficial endocervix. AM:osiel 04/28/18 Signed [facility] 04/28/18 <signature on file> Performed By: #### PEMB #### [facility] [address] [place], [address] THYROID STIM HORMONE Collected: 04/15/2018 Status: F Source: [place] (TSH) 8:44 AM [facility] REPOSITORY TYPE CODE TESTS RESULT OUT OF RANGE REFERENCE UNITS LAB L501.9520 0.358-3.74 uIU/mL Normal TSH 1.14 Performed By: #### L501.9520, L506.0400 #### [facility] [address] [facility] [place], [address] T4 FREE DIRECT Collected: 04/15/2018 Status: F Source: [place] 8:44 AM [facility] REPOSITORY TYPE CODE TESTS RESULT OUT OF RANGE REFERENCE UNITS LAB L506.0400 0.76-1.46 ng/dL Normal T4 FREE 1.45 DIRECT Performed By: #### L501.9520, L506.0400 #### [facility] [address] [place], [address] PELVIC (NON ) Observed: 04/15/2018 Status: F Source: [place] 8:01 AM [facility] REPOSITORY [facility] Imaging Services [address] [place] [address] Pelvic (Non ) MR#: [id number] Acct: [id number] Name: EMILEE GENAO Rep #: [id number] : 1975 F 42 From: Sam Velez MD PCP: Roberto Cano MD Status: REG CLI Study: Pelvic (Non ) Date of Exam: 04/15/18 Exam# [id number] Ordering Dr: Roxann Haji MD STUDY: ULTRASOUND [...] CC: Roberto Cano MD; Roxann Haji MD Enlisted Advisor: Signed TRANSVAGINAL Observed: 04/15/2018 Status: F Source: [place] NON- 8:01 AM [facility] REPOSITORY [facility] Imaging Services [address] [place] [address] Transvaginal Non- MR#: [id number] Acct: [id number] Name: EMILEE GENAO Rep #: [id number] : 1975 F 42 From: Sam Velez MD PCP: Roberto Cano MD Status: REG CLI Study: Transvaginal Non- Date of Exam: 04/15/18 Exam# [id number] Ordering Dr: Roxann Haji MD STUDY: ULTRASOUND [...] CC: Roberto Cano MD; Roxann Haji MD Enlisted Advisor: Signed BUSINESS TEACHER OFFICE VISIT Observed: 03/30/2018 Status: F Source: [place] REPORT 2:06 AM [facility] [address] [place] [address]. [address] [place] [address] OFFICE VISIT Date of Service: 03/25/18 MR#: [id number] Acct: [id number] Name: EMILEE GENAO Rep #: [id number] : 1975 Provider: Roxann Haji MD Age/Sex: 42/F Location: [facility] Status: Signed Intake Vital Signs03/25/18 Height 5 ft 5 in 03/25/18 Weight: 256 lb 03/25/18 Body Mass Index (BMI) 42.5 Intake Visit Reasons: DISCUSS HORMONES Chief Complaint: Irregular Menses, Hormone Consult Boston Cutter Required: No Is patient in pain?: No [...] menopausal: No Patient : No : No [facility] Medical History Thyroid dysfunction (Chronic) Elevated cholesterol [...] social history: Wayne Garza Patient works at [employer] HPI DISCUSS HORMONES: Details: EMILEE GENAO is [...] VISIT REPORT Observed: 03/12/2018 Status: F Source: [place] 4:09 PM [facility] REPOSITORY [facility] [address] [place] [address] OFFICE VISIT Date of Service: 03/12/18 MR#: [id number] Acct: [id number] Name: EMILEE GENAO Rep #: [id number] : 1975 Provider: Socorro Quiles Age/Sex: 42/F Location: [facility] Status: Signed Assessment AND Plan 1. Acute [...] Orders: Other Medications Discontinued: Kenalog (triamcinolone acetonide) Tseidcsprhq00 mg (1.5 mL) IM ONCE 1.5 mL 0RF NS J06.9 d Reason: Office Medication has been Documented as given Follow Up 6 Months ([facility]) HPI Follow up after ATB: Chief [...] sputum production has ceased. She has tried hwad-xyl-dxbfixx Mucinex for the chest congestion as she [...] Intake Visit Reasons: Follow up after ATB Boston Cutter Required: No Accompanied by: Self Is patient [...] spray INTRANASAL Q12H 09/30/17 [History Confirmed 03/08/18] ozintoqish-xfizqzvqddaww-cspoewmg 50 mg-300 mg-40 mg capsule 1 cap PO Q4H PRN 09/30/17 [History Confirmed 03/08/18] levothyroxine 175 mcg tablet 175 mcg PO QDAY 09/30/17 [History Confirmed 03/08/18] ranitidine 150 mg tablet 150 mg PO QDAY 09/30/17 [History Confirmed 03/08/18] doxycycline hyclate 100 mg tablet 100 mg PO BID #20 tab 03/03/18 [Rx Confirmed 03/08/18] [facility] Medical History Thyroid dysfunction (Chronic) Elevated cholesterol [...] Admin Location Lot Number Expiration Date NDC Tools Developer 60 mg IM Rt gluteal [id number] 05/18/19 5522-7336-57 [employer] Coding Level of Care Code Off vis,est,level [...] - COLLECTION VIAL: Thin Prep Vial - ALTERATION TAILOR APPRENTICE SOURCE: CERVICAL/ENDOCERVICAL - COLLECTION TECHNIQUE: BRUSH/SPATULA Specimen Comment: [id number] Specimen Comment: No. of containers..01 ThinPrep Vial TYPE CODE TESTS RESULT OUT OF RANGE REFERENCE UNITS LAB L7400.0800 . Normal DIAGN Comment Result Comment: NEGATIVE FOR INTRAEPITHELIAL LESION AND MALIGNANCY. LAB L7400.0900 . Normal ADEQ Comment Result Comment: Satisfactory for evaluation. Endocervical and/or squamous metaplastic cells (endocervical component) are present. LAB L7400.1400 . Normal PERFORM Comment Result Comment: Rocio Paiz, Chairman Ceo (ASCP) LAB L7400.2575 . Normal TEST METHOD [...] HPV testing was performed. Performed at: - [facility] [id number] Con[employer] Boom Operator: Misty Kumar MD, Phone: [phone] Performed By: #### L7400.0357 #### [facility] (refer to report for specific site) refer to report for address and phone number SCREENING MAMM (CAD), Observed: 08/25/2017 Status: F Source: [facility] 3:55 PM [facility] REPOSITORY [facility] Imaging Services [address] [place] [address] SCREENING MAMM (CAD), BILAT MR#: [id number] Acct: [id number] Name: EMILEE GENAO Rep #: [id number] : 1975 F 42 From: Gordon Grant MD PCP: Roberto Cano Status: [facility] Study: SCREENING MAMM (CAD), BILAT Date of Exam: 08/25/17 Exam# [id number] Ordering Dr: Brandon Blankenship MD MAMMOGRAPHY - [...] delay biopsy of a clinically suspicious abnormality. [id number] Electronically Signed: Gordon Grant MD at 8:34 EDT Tel [phone], Service support , CC: Brandon Blankenship MD; Roberto Cano Enlisted Advisor: Signed HAND MIN 3 VIEWS Observed: 07/28/2017 Status: F Source: [place] 2:20 PM [facility] REPOSITORY [facility] Imaging Services [address] [place] [address] Hand Min 3 Views MR#: [id number] Acct: [id number] Name: EMILEE GENAO Rep #: [id number] : 1975 F 41 From: Keely Armendariz MD PCP: Roberto Cano Status: REG CLI Study: Hand Min 3 Views Date of Exam: 07/28/17 Exam# [id number] Ordering Dr: Roberto Cano MD STUDY: X-RAY [...] Armendariz MD at 8:38 EDT Tel Direct: [phone], Service support , CC: Roberto Cano Enlisted Advisor: Signed ALLERGIES ALLERGIES DATE TYPE / CODE NAME / CODE REACTION SEVERITY SOURCE 04/27/2018 Drug penicillin Nausea, stomach [place] Allergy/416 V/[id number](RXNO cramps, hives [facility] 562085([facility] ED CT) Repository 10/16/2014 Drug No Known Unknown [place] Allergy/416 Allergies/[id number] [facility] 592334([facility] 388(RXNORM) [facility] ED CT) Repository ENCOUNTERS ENCOUNTERS ADMIT/DISCHARGE ACCOUNT ADMITTING ENCOUNTER LOCATION SOURCE NUMBER CLASS 05/04/2018 [id number] Ambulatory [place] 0 [facility] ing:PAVLAB Repository 04/27/2018 [id number] Ambulatory [place] 4 [facility] ing:[facility] Repository 04/27/2018/ [id number] Ambulatory BMSBuilding:B [place] 8 9 [facility] Repository 04/15/2018 [id number] Ambulatory [place] 0 [facility] ing:OPUS Repository 03/25/2018/ [id number] Ambulatory BMSBuilding:B [place] 8 [address] [facility] Hospital Repository 03/12/2018/ [id number] Ambulatory BMSBuilding:B [place] 8 5 [facility] Hospital Repository 10/14/2017 [id number] Ambulatory [place] 3 [facility] ing:[facility] Repository 10/06/2017 [id number] Ambulatory BMSBuilding:B [place] 5 [facility] Repository 08/25/2017 [id number] Ambulatory [place] 8 [facility] ing:OPBI Repository 07/28/2017 [id number] Ambulatory [place] 7 [facility] ing:MTRAD Repository PAYERS PAYERS ENCOUNTER GUARANTOR PAYER SUBSCRIBER SOURCE 05/04/2018 EMILEE L Primary NAVYA SCHLAUCHDOB: [place] [id number] Insurance:[facility] [id number] [facility] [address] y Number: [place], [place] [id number] Repository [address]Vlq: (330) cassie Date:5985-44-61HY [phone] () [address] [place] [address]XE: 05/04/2018 Secondary NOT GIVENUNK [place] Insurance:SELF PAY [facility] Number: Effective Repository Date:2018-05-04 04/27/2018 EMILEE Hill Primary NAVYA SCHCINDYUCHDOB: [place] [id number] Insurance:[facility] [id number] [facility] y Number: [place], [place] [id number] Repository [address]Xzt: (330) cassie Date:1052-97-98BS [phone] () [address], [place] [address]IX: 04/27/2018 Secondary NOT GIVENUNK [place] Insurance:SELF PAY [facility] Number: Effective Repository Date:2018-04-27 04/27/2018 EMILEE Hill Primary NAVYA RUIZUCHDOB: [place] [id number] Insurance:[facility] [id number] [facility] y Number: [place], [place] [id number] Repository [address]Zjb: (330) cassie Date:2239-36-70MM [phone] () [address], [place] [address]HX: 04/27/2018 Secondary NOT GIVENUNK [place] Insurance:SELF PAY [facility] Number: Effective Repository Date:2018-04-27 04/15/2018 EMILEE L Primary NAVYA SCHLAUCHDOB: [place] [id number] Insurance:[employer] [id number] Community [address] y Number: [place], [place] [id number] Repository [address]Vcr: (330) cassie Date:4269-14-80MD [phone] () [address], [place] [address]ZY: 04/15/2018 Secondary NOT GIVENUNK [place] Insurance:SELF PAY Community [facility] Number: Effective Repository Date:2018-03-29 03/25/2018 EMILEE L Primary NAVYA SCHLAUCHDOB: [place] [id number] Insurance:[employer] [id number] [facility] [address] y Number: [place], [place] [id number] Repository [address]Hie: (330) cassie Date:4338-91-33ZF [phone] () [address], [place] [address]CZ: 03/25/2018 Secondary NOT GIVENUNK [place] Insurance:SELF PAY Community [facility] Number: Effective Repository Date:2018-02-18 03/12/2018 KYARA W Primary NAVYA SCHLAUCHDOB: [place] [id number] Insurance:[employer]HE[employer] [id number] Community [address] y Number: [place], [place] [id number] Repository [address]Tds: (330) cassie Date:3810-20-85DR [phone] () [address], [place] [address]PQ: 03/12/2018 Secondary NOT GIVENUNK [place] Insurance:SELF PAY Community [facility] Number: Effective Repository Date:2018-03-05 10/14/2017 KYARA W Primary NAVYA SCHLAUCHDOB: [place] [id number] Insurance:[employer] [id number] Community [address] y Number: [place], [place] [id number] Repository [address]Oyk: (330) cassie Date:4156-67-35IY [phone] () [address]PMY, [place] [address]YG: 10/14/2017 Secondary NOT GIVENUNK [place] Insurance:SELF PAY Community [facility] Number: Effective Repository Date:2017-10-14 10/06/2017 KYARA W Primary NAVYA SCHLAUCHDOB: [place] [id number] Insurance:[employer]HE[employer] [id number] [facility] [address] y Number: [place], [place] [id number] Repository [address]Fqz: (330) cassie Date:4895-35-92JB [phone] () [address], [place] [address]QF: 10/06/2017 Secondary NOT GIVENUNK [place] Insurance:SELF PAY Community [facility] Number: Effective Repository Date:2017-04-27 08/25/2017 KYARA W Primary NAVYA SCHLAUCHDOB: [place] [id number] Insurance:[employer] [id number] [facility] [address] y Number: [place], [place] [id number] Repository [address]Urv: (330) cassie Date:6058-50-65ZE [phone] () [address], [place] [address]NQ: 08/25/2017 Secondary NOT GIVENUNK [place] Insurance:SELF PAY Community [facility] Number: Effective Repository Date:2017-08-03 07/28/2017 KYARA W Primary NAVYA SCHLAUCHDOB: [place] [id number] Insurance:[employer] [id number] Community [address] y Number: [place], [place] [id number] Repository [address]Fcd: (330) cassie Date:9338-43-55IL [phone] () [address], [place] [address]HF: 07/28/2017 Secondary NOT GIVENUNK [place] Insurance:SELF PAY [facility] Number: Effective Repository Date:2017-07-28
== END ==
PROVIDERS: Family Provider Family Medicine; PCP Family Medicine; Referring Provider Obstetrics & Gynecology; Visit Provider Obstetrics & Gynecology
DX: N93.9 Abnormal uterine and vaginal bleeding, unspecified (principal)
CPT/HCPCS: 88305

== ENCOUNTER → 2018-05-04 08:00 | Outpatient (CLI) | payer BC, SELFPAY ==
[2018-05-04 08:45] LABS: Cholesterol 267 mg/dL (200); Glucose 93 mg/dL (74-106); High Density Lipoprotein 66 mg/dL; Triglycerides 250 mg/dL; Very Low Density Lipoprotein 50 mg/dL (5-40)
--- OUTSIDE RECORDS SUMMARY | 2018-08-05 12:52 | XMS RPT_ITS ---
:1975 Author Organization OHIP Support Name Relationship Address Phone BIRGITKYARA Unavailable [address] + [place] [address] MIRAMONTES LIVESTOCK Unavailable [address] + [place] [address] KYARA GENAO Unavailable [address] + [place] [address] [employer] Unavailable [address] + [place] [address] KYARA GENAO Unavailable [address] + [place] [address] [employer]AM[employer] Unavailable [address] + [place] [address] KYARA GENAO Unavailable [address] + [place] [address] MIRAMONTES LIVESTOCK Unavailable [address] + [place] [address] [employer] Unavailable [address] [place] [address] KYARA GENAO Unavailable [address] + [place] [address] [employer] Unavailable [address] + [address] [place] [address] KYARA GENAO Unavailable [address] + [place] [address] [employer] Unavailable [address] + [address] [facility] [place] [address] KYARA GENAO Unavailable [address] + [place] [address] [employer] Unavailable [address] + [address] [place] [address] KYARA GENAO Unavailable [address] + [place] [address] [employer] Unavailable [address] + [address] [place] [address] KYARA GENAO Unavailable [address] + [place] [address] [employer] Unavailable [address] + [address] [place] [address] KYARA GENAO Unavailable [address] + [place] [address] Care Team Providers Name Role Phone Roxann Haji Attending Unavailable Jerome, Roberto Referring Unavailable Marcaldo, Roxann Attending Unavailable Marckenyaony, Roxann Referring Unavailable Jerome, Roberto Primary Care Unavailable Adithya, Roxann Attending Unavailable Marcaldo, Roxann Referring Unavailable Jerome, Roberto Primary Care Unavailable Jerome, Roberto Attending Unavailable Jerome, Roberto Referring Unavailable Jerome, Roberto Primary Care Unavailable Brandon Blankenship Attending Unavailable Jerome, Roberto Primary Care Unavailable Kb, Socorro Attending Unavailable Jerome, Roberto Referring Unavailable Brandon Blankenship Attending Unavailable Kb, Socorro Attending Unavailable Jerome, Roberto Referring Unavailable Marckenyaony, Roxann Attending Unavailable Jerome, Roberto Referring Unavailable Marcaldo, Roxann Attending Unavailable Marckenyaony, Roxann Referring Unavailable Jerome, Roberto Primary Care Unavailable PROBLEMS PROBLEMS DATE TYPE CONDITION / CODE ATTENDING STATUS SOURCE 04/27/2018 Unknown J06.9 - Acute Marcanthony, Active [place] upper respiratory [facility] infection, Hospital unspecified / Repository J06.9(ICD-10) 04/15/2018 Unknown N93.9 - Abnormal Marcanthony, Active [place] uterine and Roxann Community vaginal bleeding, Hospital unspecified / Repository N93.9(ICD-10) 10/15/2017 Unknown Z12.4 - Encounter Brandon Blankenship Active [place] for screening [facility] neoplasm of Repository cervix / Z12.4(ICD-10) 07/28/2017 Unknown M79.645 - Pain in Roberto Cano Active [place] left finger(s) / Community M79.645(ICD-10) Hospital Repository PROCEDURES PROCEDURES No Procedure Records FoundRESULTS RESULTS LIPID PROFILE Collected: 05/04/2018 Status: F Source: [place] 8:04 AM [facility] REPOSITORY TYPE CODE TESTS RESULT OUT OF [...] 50 Performed By: #### L500.4100, L501.0100 #### [facility] [address] [place], [address] GLUCOSE Collected: 05/04/2018 Status: F Source: [place] 8:04 AM [facility] REPOSITORY TYPE CODE TESTS RESULT OUT OF RANGE REFERENCE UNITS LAB L501.0100 74-106 mg/dL Normal GLU 93 Result Comment: Please note revised GLUCOSE reference range effective 2017. Performed By: #### L500.4100, L501.0100 #### [facility] [address] [place], [address] CROP ROLLER OFFICE VISIT Observed: 04/27/2018 Status: F Source: [place] REPORT 10:09 AM [facility] REPOSITORY [facility] 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 Is patient in pain?: No [...] social history: Wayne Garza Patient works at [employer]cy History 5 Elective abortions Hx Para [...] healthy appearing, comfortable, well developed Orientation: alert [facility] Head: normal to inspection Resp Effort [...] N93.9 Endometriosis N80.9 Additional Codes Endometrial Biopsy (03700) 04/27/18 1009 <Electronically signed by Roxann Haji MD> Date Roxann Haji MD Cosigner Signature: Date (if applicable) CC: ENDOMETRIAL BX/CURETTINGS Observed: 04/27/2018 Status: F Source: [place] 12:00 AM [facility] REPOSITORY Patient: EMILEE GENAO : 1975 (42/F) Acct Num: [id number] Phys: Adithya KOVACS,Roxann Unit Num: [id number] Loc: [facility] Specimen: [id number] Received: 04/27/18 1418 Spec Type: ENDOM BX/C TISSUES 1 TISSUES: Endometrium, NOS GROSS DESCRIPTION Received is one container labeled with the patient's name and not further designated. The specimen consists of multiple fragments of hemorrhagic soft tissue that in aggregate measure 2.5 x 1 x 0.1 cm. The specimen is totally submitted in one cassette. / SJ:osiel 04/27/18 TC:5 CPT: 82534 HEADER OPERATION: Endometrial biopsy PRE-OP DIAGNOSIS: Abnormal uterine bleeding TISSUE SUBMITTED: Endometrial lining MICROSCOPIC DESCRIPTION Slides are reviewed. MICROSCOPIC DIAGNOSIS Endometrium, biopsy: Superficial strips of secretory endometrium. Rare strips of benign superficial endocervix. AM:osiel 04/28/18 Signed [facility] 04/28/18 <signature on file> Performed By: #### PEMB #### [facility] [address] [place], [address] THYROID STIM HORMONE Collected: 04/15/2018 Status: F Source: [place] (TSH) 8:44 AM [facility] REPOSITORY TYPE CODE TESTS RESULT OUT OF RANGE REFERENCE UNITS LAB L501.9520 0.358-3.74 uIU/mL Normal TSH 1.14 Performed By: #### L501.9520, L506.0400 #### [facility] [address] [facility] [place], [address] T4 FREE DIRECT Collected: 04/15/2018 Status: F Source: [place] 8:44 AM [facility] REPOSITORY TYPE CODE TESTS RESULT OUT OF RANGE REFERENCE UNITS LAB L506.0400 0.76-1.46 ng/dL Normal T4 FREE 1.45 DIRECT Performed By: #### L501.9520, L506.0400 #### [facility] [address] [facility] [place], [address] PELVIC (NON ) Observed: 04/15/2018 Status: F Source: [place] 8:01 AM [facility] REPOSITORY [facility] Imaging Services [address] [place] [address] Pelvic (Non ) MR#: [id number] Acct: [id number] Name: EMILEE GENAO Rep #: [id number] : 1975 F 42 From: Sam Velez MD PCP: Roberto Cano MD Status: REG CLI Study: Pelvic (Non ) Date of Exam: 04/15/18 Exam# [id number] Ordering Dr: Roxann Haji MD STUDY: ULTRASOUND [...] CC: Roberto Cano MD; Roxann Haji MD Cold Roller: Signed TRANSVAGINAL Observed: 04/15/2018 Status: F Source: [place] NON- 8:01 AM [facility] REPOSITORY [facility] Imaging Services [address] [place] [address] Transvaginal Non- MR#: [id number] Acct: [id number] Name: EMILEE GENAO Rep #: [id number] : 1975 F 42 From: Sam Velez MD PCP: Roberto Cano MD Status: REG CLI Study: Transvaginal Non- Date of Exam: 04/15/18 Exam# [id number] Ordering Dr: Roxann Haji MD STUDY: ULTRASOUND [...] CC: Roberto Cano MD; Roxann Haji MD Cold Roller: Signed CROP ROLLER OFFICE VISIT Observed: 03/30/2018 Status: F Source: [place] REPORT 2:06 AM [facility] [address] [place] [address]. 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 Is patient in pain?: No [...] menopausal: No Patient : No : No [facility] Medical History Thyroid dysfunction (Chronic) Elevated [...] social history: Wayne Garza Patient works at [employer] HPI DISCUSS HORMONES: Details: EMILEE GENAO is [...] VISIT REPORT Observed: 03/12/2018 Status: F Source: [place] 4:09 PM [facility] REPOSITORY [facility] [address] [place] [address] OFFICE VISIT Date of Service: 03/12/18 MR#: [id number] Acct: [id number] Name: EMILEE GENAO Rep #: [id number] : 1975 Provider: Socorro Quiles Age/Sex: 42/F Location: [facility] Status: Signed Assessment AND Plan 1. Acute [...] Orders: Other Medications Discontinued: Kenalog (triamcinolone acetonide) Wqwgtqneusk76 mg (1.5 mL) IM ONCE 1.5 mL 0RF NS J06.9 d Reason: Office Medication has been Documented as given Follow Up 6 Months ([facility]) HPI Follow up after ATB: Chief Complaint: [...] sputum production has ceased. 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 Accompanied by: Self Is patient [...] spray INTRANASAL Q12H 09/30/17 [History Confirmed 03/08/18] tdheejtczp-onzzshlnxwkdr-tedgejvu 50 mg-300 mg-40 mg capsule 1 cap PO Q4H PRN 09/30/17 [History Confirmed 03/08/18] levothyroxine 175 mcg tablet 175 mcg PO QDAY 09/30/17 [History Confirmed 03/08/18] ranitidine 150 mg tablet 150 mg PO QDAY 09/30/17 [History Confirmed 03/08/18] doxycycline hyclate 100 mg tablet 100 mg PO BID #20 tab 03/03/18 [Rx Confirmed 03/08/18] [facility] Medical History Thyroid dysfunction (Chronic) Elevated [...] Admin Location Lot Number Expiration Date NDC Business Librarian 60 mg IM Rt gluteal [id number] 05/18/19 1051-1592-26 Oversi Coding Level of Care Code Off vis,est,level [...] F Source: [place] HPV APTIMA 9:30 AM [facility] REPOSITORY Order Comment: CYTOLOGY INFORMATION: - CLINICAL INFORMATION: - DATE LMP/MENOPAUSE: 08/20/17 LMP - COLLECTION VIAL: Thin Prep Vial - STATIONARY FIREMAN SOURCE: CERVICAL/ENDOCERVICAL - COLLECTION TECHNIQUE: BRUSH/SPATULA Specimen Comment: [id number] Specimen Comment: No. of containers..01 ThinPrep Vial TYPE CODE TESTS RESULT OUT OF RANGE REFERENCE UNITS LAB L7400.0800 . Normal DIAGN Comment Result Comment: NEGATIVE FOR INTRAEPITHELIAL LESION AND MALIGNANCY. LAB L7400.0900 . Normal ADEQ Comment Result Comment: Satisfactory for evaluation. Endocervical and/or squamous metaplastic cells (endocervical component) are present. LAB L7400.1400 . Normal PERFORM Comment Result Comment: Rocio Paiz, Enterprise Engineer (ASCP) LAB L7400.2575 . Normal TEST METHOD [...] HPV testing was performed. Performed at: - [facility] [id number] Manager Video Games: Misty Kumar MD, Phone: [phone] Performed By: #### L7400.0357 #### [facility] (refer to report for specific site) refer to report for address and phone number SCREENING MAMM (CAD), Observed: 08/25/2017 Status: F Source: [facility] 3:55 PM [facility] REPOSITORY [facility] Imaging Services [address] [place] [address] SCREENING MAMM (CAD), BILAT MR#: [id number] Acct: [id number] Name: EMILEE GENAO Rep #: [id number] : 1975 F 42 From: Gordon Grant MD PCP: Roberto Cano Status: [facility] Study: SCREENING MAMM (CAD), BILAT Date of Exam: 08/25/17 Exam# [id number] Ordering Dr: Brandon Blankenship MD MAMMOGRAPHY - [...] delay biopsy of a clinically suspicious abnormality. [id number] Electronically Signed: Gordon Grant MD at 8:34 EDT Tel [phone], Service support , CC: Brandon Blankenship MD; Roberto Cano Cold Roller: Signed HAND MIN 3 VIEWS Observed: 07/28/2017 Status: F Source: [place] 2:20 PM [facility] REPOSITORY [facility] Imaging Services [address] [place] [address] Hand Min 3 Views MR#: [id number] Acct: [id number] Name: EMILEE GENAO Rep #: [id number] : 1975 F 41 From: Keely Armendariz MD PCP: Roberto Cano Status: REG CLI Study: Hand Min 3 Views Date of Exam: 07/28/17 Exam# [id number] Ordering Dr: Roberto Cano MD STUDY: X-RAY [...] Armendariz MD at 8:38 EDT Tel Direct: [phone], Service support , CC: Roberto Cano Cold Roller: Signed ALLERGIES ALLERGIES DATE TYPE / CODE NAME / CODE REACTION SEVERITY SOURCE 04/27/2018 Drug penicillin Nausea, stomach [place] Allergy/416 V/[id number](RXNO cramps, hives [facility] 191505([facility] ED CT) Repository 10/16/2014 Drug No Known Unknown [place] Allergy/416 Allergies/[id number] [facility] 555969[facility] ED CT) Repository ENCOUNTERS ENCOUNTERS ADMIT/DISCHARGE ACCOUNT ADMITTING ENCOUNTER LOCATION SOURCE NUMBER CLASS 05/04/2018 [id number] Ambulatory [place] 0 [facility] ing:PAVLAB Repository 04/27/2018 [id number] Ambulatory [place] 4 [facility] ing:[facility] Repository 04/27/2018/ [id number] Ambulatory BMSBuilding:B [place] 8 9 [facility] Repository 04/15/2018 [id number] Ambulatory [place] 0 [facility] ing:OPUS Repository 03/25/2018/ [id number] Ambulatory BMSBuilding:B [place] 8 9 [facility] Repository 03/12/2018/ [id number] Ambulatory BMSBuilding:B [place] 8 5 [facility] Hospital Repository 10/14/2017 [id number] Ambulatory [place] 3 [facility] ing:[facility] Repository 10/06/2017 [id number] Ambulatory BMSBuilding:B [place] 5 [facility] Hospital Repository 08/25/2017 [id number] Ambulatory [place] 8 [facility] ing:OPBI Repository 07/28/2017 [id number] Ambulatory [place] 7 [facility] ing:MTRAD Repository PAYERS PAYERS ENCOUNTER GUARANTOR PAYER SUBSCRIBER SOURCE 05/04/2018 EMILEE L Primary NAVYA SCHLAUCHDOB: [place] [id number] Insurance:[facility] [id number] [facility] [address] y Number: [place], [place] [id number] Repository [address]Slj: (330) cassie Date:8386-01-05IE [phone] () [address] [place] [address]NM: 05/04/2018 Secondary NOT GIVENUNK [place] Insurance:SELF PAY [facility] Number: Effective Repository Date:2018-05-04 04/27/2018 EMILEE Hill Primary NAVYA SCHCINDYUCHDOB: [place] [id number] Insurance:[facility] [id number] [facility] y Number: [place], [place] [id number] Repository [address]Fpz: (330) cassie Date:1493-84-58MY [phone] () [address], [place] [address]HH: 04/27/2018 Secondary NOT GIVENUNK [place] Insurance:SELF PAY [facility] Number: Effective Repository Date:2018-04-27 04/27/2018 EMILEE Hill Primary NAVYA RUIZUCHDOB: [place] [id number] Insurance:[facility] [id number] [facility] y Number: [place] [id number] Repository [address]Wok: (330) cassie Date:6850-20-56VN [phone] () [address], [place] [address]ZN: 04/27/2018 Secondary NOT GIVENUNK [place] Insurance:SELF PAY [facility] Effective Repository Date:2018-04-27 04/15/2018 EMILEE L Primary NAVYA SCHLAUCHDOB: [place] [id number] Insurance:[employer]HE[employer] [id number] Community [address] y Number: [place], [place] [id number] Repository [address]Ced: (330) cassie Date:2604-43-11NI [phone] () [address], [place] [address]GG: 04/15/2018 Secondary NOT GIVENUNK [place] Insurance:SELF PAY [facility] Number: Effective Repository Date:2018-03-29 03/25/2018 EMILEE L Primary NAVYA SCHLAUCHDOB: [place] [id number] Insurance:[employer]HE[employer] [id number] [facility] [address] y Number: [place], [place] [id number] Repository [address]Vfb: (330) cassie Date:9924-13-18GY [phone] () [address], [place] [address]EI: 03/25/2018 Secondary NOT GIVENUNK [place] Insurance:SELF PAY [facility] Number: Effective Repository Date:2018-02-18 03/12/2018 KYARA W Primary NAVYA SCHLAUCHDOB: [place] [id number] Insurance:[employer]HE[employer] [id number] Community [address] y Number: [place] [id number] Repository [address]Tce: (330) cassie Date:7749-96-14LL [phone] () [address], [place] [address]GQ: 03/12/2018 Secondary NOT GIVENUNK [place] Insurance:SELF PAY [facility] Number: Effective Repository Date:2018-03-05 10/14/2017 KYARA W Primary NAVYA SCHLAUCHDOB: [place] [id number] Insurance:ANTHEMPolic [id number] Community [address] y Number: [place] [id number] Repository [address]Uar: (330) cassie Date:7606-00-88FQ [phone] () [address], [place] [address]FL: 10/14/2017 Secondary NOT GIVENUNK [place] Insurance:SELF PAY [facility] Number: Effective Repository Date:2017-10-14 10/06/2017 KYARA W Primary NAVYA SCHLAUCHDOB: [place] [id number] Insurance:[employer]HE[employer]olic [id number] [facility] [address] y Number: [place] [id number] Repository [address]Evp: (330) cassie Date:0140-47-31LV [phone] () [address]QS[place]BS, [place] [address]KN: 10/06/2017 Secondary NOT GIVENUNK [place] Insurance:SELF PAY [facility] Number: Effective Repository Date:2017-04-27 08/25/2017 KYARA W Primary NAVYA SCHLAUCHDOB: [place] [id number] Insurance:[employer]HE[employer] [id number] [facility] [address] y Number: [place] [id number] Repository [address]Vae: (330) cassie Date:1582-29-38PJ [phone] () [address], [place] [address]RQ: 08/25/2017 Secondary NOT GIVENUNK [place] Insurance:SELF PAY [facility] Number: Effective Repository Date:2017-08-03 07/28/2017 KYARA W Primary NAVYA SCHLAUCHDOB: [place] [id number] Insurance:ANTHE[employer]olic [id number] Community [address] y Number: [place] [id number] Repository [address]Xfl: (330) cassie Date:6436-96-15DO [phone] () [address], [place] [address]PL: 07/28/2017 Secondary NOT GIVENUNK [place] Insurance:SELF PAY [facility]: Effective Repository Date:2017-07-28
== END ==
PROVIDERS: Family Provider Family Medicine; PCP Family Medicine; Referring Provider Obstetrics & Gynecology; Visit Provider Obstetrics & Gynecology
DX: Z13.1 Encounter for screening for diabetes mellitus (principal); Z13.220 Encounter for screening for lipoid disorders
CPT/HCPCS: 36415; 80061; 82947

== ENCOUNTER → 2018-09-10 12:19 | Outpatient (CLI) | payer BC, SELFPAY ==
[2018-07-19 08:21] VITALS: BMI 42.5
--- NOTE | 2018-09-10 12:21 | BI_ITS ---
MAMMOGRAPHY - BILATERAL SCREENING 3-D TOMOSYNTHESIS REASON FOR EXAM: Female, 43 years old. Bilateral Screening 3-D tomosynthesis PERTINENT HISTORY: Mother with breast cancer.. TECHNIQUE: 2-D mammograms and 3-D Tomosynthesis of the breast (s) were performed. CAD was performed. COMPARISON: 08/25/2017 FINDINGS: The breast composition is composed of scattered fibroglandular density. Scattered benign calcifications are seen. No dense spiculated masses or suspicious microcalcifications are identified. No architectural distortion is identified. There is no skin thickening or retraction. There has been no significant change since the prior study. BI/SCREEN MAMM (CAD) W/MILO BILAT IMPRESSION: No mammographic signs of malignancy. Routine yearly mammograms recommended. ASSESSMENT CATEGORY: BIRADS Category 1: Negative. A letter regarding these results will be sent to the patient by the facility within 30 days. FOLLOW UP RECOMMENDATION: Yearly follow up mammogram recommended. (A) Approximately 10% of breast cancers are not detected by mammography. A normal mammogram should not delay biopsy of a clinically suspicious abnormality. Electronically Signed: Jarad Garibay MD at 13:57 EDT , Service support ,
== END ==
PROVIDERS: Family Provider Family Medicine; PCP Family Medicine; Referring Provider Obstetrics & Gynecology; Visit Provider Obstetrics & Gynecology
DX: Z12.31 Encounter for screening mammogram for malignant neoplasm of breast (principal)
CPT/HCPCS: 77063; 77067

== ENCOUNTER → 2019-09-16 10:02 | Outpatient (CLI) | payer BC, SELFPAY ==
[2018-10-26 08:17] VITALS: BMI 42.5
--- NOTE | 2019-09-16 10:03 | BI_ITS ---
MAMMOGRAPHY - BILATERAL SCREENING REASON FOR EXAM: Female, 44 years old. Routine annual screening examination. PERTINENT HISTORY: Mother with breast cancer. TECHNIQUE: Digital bilateral breast milo (3D mammographic acquisition) in the CC and MLO projections. 2-D mediolateral oblique (MLO) and craniocaudad (CC) views of both breasts were obtained. CAD: Full Field Digital Mammography with Computer Added Detection was performed. COMPARISON: Comparison is made with prior examination dated September 10, 2018 and August 25, 2017. FINDINGS: Breast Composition: There are scattered areas of fibroglandular density. There are no dominant masses or suspicious calcifications. Stable benign-appearing bilateral axillary lymph nodes. No other significant abnormalities are identified. There has been no significant change since the prior study. BI/SCREEN MAMM (CAD) W/MILO BILAT IMPRESSION: Stable bilateral screening mammogram. Yearly follow-up mammogram recommended. (A) ASSESSMENT CATEGORY: BIRADS Category 2: Benign. A letter regarding these results will be sent to the patient by the facility within 30 days. Approximately 10% of breast cancers are not detected by mammography. A normal mammogram should not delay biopsy of a clinically suspicious abnormality. [id number] Electronically Signed: Gordon Grant, at 11:01 EDT , Service support ,
== END ==
PROVIDERS: Family Provider Family Medicine; PCP Family Medicine; Referring Provider Obstetrics & Gynecology; Visit Provider Obstetrics & Gynecology
DX: Z12.31 Encounter for screening mammogram for malignant neoplasm of breast (principal)
CPT/HCPCS: 77063; 77067

== ENCOUNTER → 2020-03-30 08:56 | Outpatient (CLI) | payer BC, SELFPAY ==
[2020-01-20 09:23] VITALS: BMI 42.5
[2020-03-30 09:50] LABS: Cholesterol 273 mg/dL (200); Glucose 92 mg/dL (74-106); High Density Lipoprotein 51 mg/dL; T4 Free Direct 1.15 ng/dL (0.76-1.46); Thyroid Stim Hormone (TSH) 1.38 uIU/mL (0.358-3.74); Triglycerides 229 mg/dL; Very Low Density Lipoprotein 46 mg/dL (5-40)
== END ==
PROVIDERS: PCP Family Medicine; Referring Provider Nurse Practitioner Women's Health; Visit Provider Nurse Practitioner Women's Health
DX: Z00.00 Encounter for general adult medical examination without abnormal findings (principal); E03.9 Hypothyroidism, unspecified; E66.01 Morbid (severe) obesity due to excess calories; E78.00 Pure hypercholesterolemia, unspecified; Z13.1 Encounter for screening for diabetes mellitus; Z13.220 Encounter for screening for lipoid disorders; Z13.29 Encounter for screening for other suspected endocrine disorder
CPT/HCPCS: 36415; 80061; 82947; 84439; 84443

== ENCOUNTER → 2020-11-16 13:18 | Outpatient (CLI) | payer OTHER, SELFPAY ==
[2020-01-20 09:23] VITALS: BMI 42.5
--- NOTE | 2020-11-16 13:21 | BI_ITS ---
MAMMOGRAPHY - BILATERAL SCREENING REASON FOR EXAM: Female, 45 years old. Routine annual screening examination. PERTINENT HISTORY: Mother with breast cancer. TECHNIQUE: Digital bilateral breast milo (3D mammographic acquisition) in the CC and MLO projections. 2-D mediolateral oblique (MLO) and craniocaudad (CC) views of both breasts were obtained. CAD: Full Field Digital Mammography with Computer Added Detection was performed. COMPARISON: Comparison is made with prior examination of 09/16/2019 and 09/10/2018. FINDINGS: Breast Composition: There are scattered areas of fibroglandular density. There are no dominant masses or suspicious calcifications. Stable benign-appearing bilateral axillary lymph nodes. No other significant abnormalities are identified. There has been no significant change since the prior study. BI/SCRN MAMM (CAD)W/MILO BILAT IMPRESSION: Stable bilateral screening mammogram. Yearly follow-up mammogram recommended. (A) ASSESSMENT CATEGORY: BIRADS Category 2: Benign. A letter regarding these results will be sent to the patient by the facility within 30 days. Approximately 10% of breast cancers are not detected by mammography. A normal mammogram should not delay biopsy of a clinically suspicious abnormality. [id number] Electronically Signed: Gordon Grant MD at 14:24 EDT , Service support ,
== END ==
PROVIDERS: PCP Family Medicine; Referring Provider Nurse Practitioner Women's Health; Visit Provider Nurse Practitioner Women's Health
DX: Z12.31 Encounter for screening mammogram for malignant neoplasm of breast (principal)
CPT/HCPCS: 77063; 77067

== ENCOUNTER 2021-03-15 11:57 | Outpatient (CLI) | payer OTHER, SELFPAY ==
[2021-03-15] MEDS: 0.9% Saline Lock 10 ML Syringe IV (11:58)
[2021-03-15 12:00] VITALS: BP 139/86; PULSE 93; RESP 16; TEMP 37.9; O2SAT 95; BMI 40.3
[2021-03-15 13:18] VITALS: BP 151/76; PULSE 84; RESP 16; TEMP 37.5; O2SAT 95
[2021-03-15 13:54] VITALS: BP 142/72; PULSE 85; RESP 16; TEMP 36.8; O2SAT 98
== END 2021-03-15 14:28 | disposition home or self-care (01) ==
LOC: MS3OUT 11:57 → MS3 11:58
PROVIDERS: PCP Family Medicine; Referring Provider Nurse Practitioner Adult Health; Visit Provider Nurse Practitioner Adult Health
DX: Z23 Encounter for immunization (principal); U07.1 COVID-19
CPT/HCPCS: J7050; M0245; Q0245; A4216

== ENCOUNTER 2021-08-30 09:38 | Outpatient (CLI) | payer OTHER, SELFPAY ==
[2021-08-30 12:18] LABS: AST(SGOT) 19 U/L (15-37); Alanine Aminotransfer ALT/SGPT 42 U/L (13-56); Albumin, Serum 3.6 g/dL (3.2-5.0); Alkaline Phosphatase 97 U/L (45-117); Anion Gap 3 (5-15); BUN 10 mg/dL (7-18); BUN/Creat Ratio 13.9 RATIO (10-20); Calcium,Total 8.6 mg/dL (8.5-10.1); Chloride 106 mmol/L (98-107); Cholesterol 261 mg/dL (200); Creatinine, Serum 0.72 mg/dL (0.55-1.02); EST Glomerular Filtration Rate 93 mL/min (>60); Est Glom Filt Rate - Afr Amer 112 mL/min (>60); Globulin 3.6 g/dL (2.2-4.2); Glucose 95 mg/dL (74-106); High Density Lipoprotein 46 mg/dL; Potassium 4.3 mmol/L (3.5-5.1); Protein, Total 7.2 g/dL (6.4-8.2); Sodium Level 137 mmol/L (136-145); Thyroid Stim Hormone (TSH) 1.94 uIU/mL (0.358-3.74); Triglycerides 291 mg/dL; Very Low Density Lipoprotein 58 mg/dL (5-40)
== END 2021-08-30 23:59 | disposition home or self-care (01) ==
LOC: MTLAB 09:40
PROVIDERS: PCP Family Medicine; Referring Provider Family Medicine; Visit Provider Family Medicine
DX: E03.9 Hypothyroidism, unspecified (principal); E78.5 Hyperlipidemia, unspecified; Z28.21 Immunization not carried out because of patient refusal
CPT/HCPCS: 36415; 80053; 80061; 84443; 86769

== ENCOUNTER → 2021-10-10 | Outpatient (CLI) | payer OTHER, SELFPAY ==
--- NOTE | 2021-10-10 12:34 | RAD_ITS ---
STUDY: X-RAY - ABDOMEN/PELVIS REASON FOR EXAM: Female, 46 years old. ABD PAIN -- STAT TECHNIQUE: AP supine and upright views of the abdomen and pelvis. COMPARISON: None. FINDINGS: Normal visualized lung bases. There is an unremarkable bowel gas pattern. There is no demonstrated free abdominal air. The visualized liver, spleen and kidneys are grossly normal in size and morphology. Status post bilateral tubal ligation. Normal visualized osseous structures. RAD/Abd Inc Decub and/or Erect IMPRESSION: Normal x-ray examination of the abdomen and pelvis. Electronically Signed: Vince Fischer MD at 13:14 EDT ,
[2021-10-10 12:38] LABS: Mucous, Urine 0 SEEN /hpf (<or=2+)
[2021-10-10 13:16] LABS: Absolute Lymphocyte Count 1.88 X10^3/uL (0.83-4.51); Absolute Neutrophil Count 13.4 X10^3/uL (2.0-7.7); Basophil# 0.05 X10^3/uL; Basophil% 0.3 % (0-1); Color, Urine Yellow (Yellow); Eosinophil# 0.09 X10^3/uL; Eosinophils% 0.5 % (0-5); Glucose, Dipstick Normal (Normal); Hematocrit 38.8 % (37-47); Ketone-Dipstick 50 mg/dl (Negative); Leukocyte Esterase-Dipstick 500 /ul (Negative); Lymphocyte # 1.88 X10^3/ul (0.83-4.51); Lymphocyte % 11.2 % (19-41); Mean Corp Hgb Conc 33.5 g/dL (32-36); Mean Corpuscular Hgb 31.1 pg (27.0-32.0); Mean Corpuscular Volume 92.8 fL (81-99); Mean Platelet Vol. 9.1 fl (6.2-12.0); Monocyte# 1.19 X10^3/uL; Monocyte% 7.1 % (0-10); NRBC Flagged by Analyzer 0 % (0-5); Neutrophil # 13.42 X10^3/uL (2.7-7.7); Neutrophil % 80.4 % (47-70); Nitrite-Dipstick Negative (Negative); Occult Blood-Urine 10 /ul (Negative); Platelet Count 447 K/mm3 (150-450); Protein-Dipstick 15 mg/dl (Negative); RBC Distribution Width CV 12.2 % (11.6-14.6); RBC Distribution Width SD 41.4 fl (35.1-43.9); Red Blood Count 4.18 M/mm3 (4.2-5.4); Urine Bilirubin Dipstick Negative (Negative); Urine Clarity Sl. Cloudy (Clear); Urine Urobilinogen 1 mg/dl (Normal); White Blood Count 16.7 K/mm3 (4.4-11.0)
[2021-10-10 13:21] LABS: Erythrocyte Sedimentation Rate 29 mm/hr (0-30)
[2021-10-10 13:22] LABS: Bacteria RARE /hpf (None Seen); Red Blood Cells-Urine 0-5 SEEN /hpf (0-5); Squamous Epithelial Cells - UA 0-5 SEEN /hpf (5-10); White Blood Cells 0-5 SEEN /hpf (0-5)
[2021-10-10 13:34] LABS: ALB/GLOB Ratio 0.8 RATIO (0.9-2.4); AST(SGOT) 31 U/L (15-37); Alanine Aminotransfer ALT/SGPT 58 U/L (13-56); Albumin, Serum 3.4 g/dL (3.2-5.0); Alkaline Phosphatase 160 U/L (45-117); Anion Gap 8 (5-15); BUN 6 mg/dL (7-18); BUN/Creat Ratio 7.7 RATIO (10-20); Calcium,Total 9.1 mg/dL (8.5-10.1); Chloride 101 mmol/L (98-107); Creatinine, Serum 0.78 mg/dL (0.55-1.02); EST Glomerular Filtration Rate 85 mL/min (>60); Est Glom Filt Rate - Afr Amer 103 mL/min (>60); Globulin 4.4 g/dL (2.2-4.2); Glucose 104 mg/dL (74-106); Potassium 3.6 mmol/L (3.5-5.1); Protein, Total 7.8 g/dL (6.4-8.2); Sodium Level 137 mmol/L (136-145)
== END | disposition home or self-care (01) ==
LOC: MTLAB 12:33
PROVIDERS: PCP Family Medicine; Referring Provider Family Medicine; Visit Provider Family Medicine
DX: R10.9 Unspecified abdominal pain (principal)
CPT/HCPCS: 36415; 74019; 80053; 81001; 85025; 85652; 87086; 87088

== ENCOUNTER → 2021-10-10 | Outpatient (CLI) | payer OTHER, SELFPAY ==
--- NOTE | 2021-10-10 16:56 | CT_ITS ---
STUDY: CT ABDOMEN AND PELVIS WITH CONTRAST REASON FOR EXAM: Female, 46 years old. Abdominal pain, elevated WBC RADIATION DOSAGE (If Supplied By Facility): CTDIvol = ( 18.55 ) mGy, DLP = ( 1332.86 ) mGycm TECHNIQUE: Transaxial images were obtained from the dome of the diaphragm to the symphysis pubis without oral contrast. Oral and amp; IV Gastrografin and amp; 100mL Isovue-370 was administered. Sagittal and coronal images were reconstructed. Individualized dose optimization techniques were used for this CT. COMPARISON: None. FINDINGS: The visualized lung bases are unremarkable. The visualized portions of the heart are within normal limits. Small hiatal hernia is noted. Liver is enlarged and fatty infiltrated without mass or bile duct dilatation. Normal gallbladder and extrahepatic biliary system. Normal spleen. Normal pancreas. Normal bilateral adrenal glands. Normal right kidney. Normal left kidney. Normal visualized stomach. Normal small intestine. Diverticular disease of the distal descending colon. There is concentric thickening of the dexter of the distal descending colon in association with narrowing of the lumen and stranding in the consistent with acute diverticulitis. No peridiverticular abscess is observed The appendix is visualized and appears normal. Postop change noted status post bilateral tubal ligation. Normal abdominal aorta. Normal inferior vena cava. Normal retroperitoneum. Incompletely distended thick-walled bladder likely of significance Normal abdominal wall. Normal osseous structures. CT/Abdomen/Pelvis WITH Contrast IMPRESSION: Findings consistent with acute diverticulitis of the distal descending colon without evidence for peridiverticular abscess. Electronically Signed: Suleman Noland MD at 19:36 EDT ,
== END | disposition home or self-care (01) ==
LOC: CT 16:54
PROVIDERS: PCP Family Medicine; Visit Provider Family Medicine
DX: R10.9 Unspecified abdominal pain (principal); D72.829 Elevated white blood cell count, unspecified
CPT/HCPCS: 74177; Q9967

== ENCOUNTER → 2021-11-22 | Outpatient (CLI) | payer OTHER, SELFPAY ==
--- NOTE | 2021-11-22 09:07 | BI_ITS ---
MAMMOGRAPHY - BILATERAL SCREENING REASON FOR EXAM: Female, 46 years old. Routine annual screening examination. PERTINENT HISTORY: Mother with breast cancer. TECHNIQUE: Digital bilateral breast milo (3D mammographic acquisition) in the CC and MLO projections. 2-D mediolateral oblique (MLO) and craniocaudad (CC) views of both breasts were obtained. CAD: Full Field Digital Mammography with Computer Added Detection was performed. COMPARISON: Comparison is made with prior study dated 11/16/2020 and 09/16/2019. FINDINGS: Breast Composition: There are scattered areas of fibroglandular density. There are no dominant masses or suspicious calcifications. No other significant abnormalities are identified. There has been no significant change since the prior study. BI/SCRN MAMM (CAD)W/MILO BILAT IMPRESSION: Stable bilateral screening mammogram. Yearly follow-up mammogram recommended. (A) ASSESSMENT CATEGORY: BIRADS Category 1: Negative. A letter regarding these results will be sent to the patient by the facility within 30 days. Approximately 10% of breast cancers are not detected by mammography. A normal mammogram should not delay biopsy of a clinically suspicious abnormality. [id number] Electronically Signed: Gordon Grant MD at 10:00 EDT ,
== END | disposition home or self-care (01) ==
LOC: OPBI 09:06
PROVIDERS: PCP Family Medicine; Referring Provider Nurse Practitioner Women's Health; Visit Provider Nurse Practitioner Women's Health
DX: Z12.31 Encounter for screening mammogram for malignant neoplasm of breast (principal); Z80.3 Family history of malignant neoplasm of breast
CPT/HCPCS: 77063; 77067

== ENCOUNTER → 2022-01-03 | Outpatient (CLI) | payer OTHER, SELFPAY ==
[2022-01-03 13:54] LABS: NATERA MAILED SPECIMEN
[2022-01-10 18:06] LABS: HPV APTIMA, High Risk Negative (Negative)
== END | disposition home or self-care (01) ==
PROVIDERS: PCP Family Medicine; Visit Provider Obstetrics & Gynecology
DX: Z12.4 Encounter for screening for malignant neoplasm of cervix (principal)
CPT/HCPCS: 36415; 87624; 88175; G0145

== ENCOUNTER → 2022-01-24 | Outpatient (CLI) | payer OTHER, SELFPAY ==
--- NOTE | 2022-01-24 14:43 | RAD_ITS ---
STUDY: X-RAY - LEFT ANKLE REASON FOR EXAM: Female, 46 years old. SPRAIN TECHNIQUE: 3 view(s) of the ankle. COMPARISON: None. FINDINGS: Mild anterolateral ankle edema. No fracture or talar osteochondral defect. Normal alignment and mortise spacing. Small calcaneal Achilles enthesophyte. No aggressive osseous lesion. RAD/Ankle min 3 Views IMPRESSION: Anterolateral ankle edema compatible with sprain. No acute osseous finding. Electronically Signed: Caden Avalos MD at 0:19 EDT ,
== END | disposition home or self-care (01) ==
LOC: MTRAD 14:42
PROVIDERS: PCP Family Medicine; Referring Provider Family Medicine; Visit Provider Family Medicine
DX: S93.492A Sprain of other ligament of left ankle, initial encounter (principal)
CPT/HCPCS: 73610

== ENCOUNTER → 2022-08-20 | Outpatient (CLI) | payer OTHER, SELFPAY ==
[2022-08-20 08:25] LABS: Hematocrit 40.8 % (37-47); Hemoglobin 13.6 g/dL (12.0-15.0); Mean Corp Hgb Conc 33.3 g/dL (32-36); Mean Corpuscular Hgb 30.6 pg (27.0-32.0); Mean Corpuscular Volume 91.9 fL (81-99); Mean Platelet Vol. 9.5 fl (6.2-12.0); Platelet Count 380 K/mm3 (150-450); RBC Distribution Width CV 12.5 % (11.6-14.6); RBC Distribution Width SD 42.2 fl (35.1-43.9); Red Blood Count 4.44 M/mm3 (4.2-5.4); White Blood Count 8.8 K/mm3 (4.4-11.0)
[2022-08-20 08:55] LABS: Vitamin B12 732 pg/mL (211-911); Vitamin D,25 Hydroxy 33.2 ng/mL
[2022-08-20 08:59] LABS: AST(SGOT) 18 U/L (15-37); Alanine Aminotransfer ALT/SGPT 38 U/L (13-56); Albumin, Serum 3.7 g/dL (3.2-5.0); Alkaline Phosphatase 99 U/L (45-117); Anion Gap 8 (5-15); BUN 12 mg/dL (7-18); BUN/Creat Ratio 16.5 RATIO (10-20); Calcium,Total 8.9 mg/dL (8.5-10.1); Chloride 106 mmol/L (98-107); Cholesterol 275 mg/dL (200); Creatinine, Serum 0.73 mg/dL (0.55-1.02); EST Glomerular Filtration Rate 91 mL/min (>60); Est Glom Filt Rate - Afr Amer 110 mL/min (>60); Free T3 2.4 pg/mL (2.18-3.98); Globulin 3.6 g/dL (2.2-4.2); Glucose 94 mg/dL (74-106); High Density Lipoprotein 50 mg/dL; Magnesium 2.2 mg/dL (1.6-2.6); Potassium 3.9 mmol/L (3.5-5.1); Protein, Total 7.3 g/dL (6.4-8.2); Sodium Level 139 mmol/L (136-145); T4 Total, Thyroxin 12.2 ug/dL (4.8-13.9); Triglycerides 183 mg/dL; Very Low Density Lipoprotein 37 mg/dL (5-40)
== END | disposition home or self-care (01) ==
LOC: LAB 07:13
PROVIDERS: PCP Family Medicine; Referring Provider Nurse Practitioner Family; Visit Provider Nurse Practitioner Family
DX: R53.83 Other fatigue (principal); E03.9 Hypothyroidism, unspecified; E78.00 Pure hypercholesterolemia, unspecified
CPT/HCPCS: 36415; 80053; 80061; 82306; 82607; 83735; 84436; 84443; 84481; 85027

== ENCOUNTER → 2022-09-30 | Outpatient (CLI) | payer OTHER, SELFPAY ==
--- NOTE | 2022-09-30 07:45 | MRI_ITS ---
STUDY: MRI LEFT REARFOOT WITHOUT CONTRAST REASON FOR EXAM: Female, 47 years old. Left hindfoot pain. History of plantar fasciitis. TECHNIQUE: Standardized fat and water weighted pulse sequences were obtained in all 3 orthogonal planes. COMPARISON: Left ankle x-rays dated January 24, 2022 and prior left ankle MRI dated August 2014. FINDINGS: Normal subcutis adipose space. Normal posterior tibialis tendon. Normal flexor digitorum longus tendon. Normal flexor hallucis longus tendon. Normal peroneus longus and brevis tendons. Normal tibialis anterior tendon. Normal extensor hallucis longus tendon. Normal extensor digitorum longus tendons. Normal Achilles tendon and teno-osseous insertion. Thickening of the proximal plantar fascia with bone marrow edema at its origin. Edema surrounding the proximal thickened plantar fascia (sagittal series 4 images 7-15). Findings have decreased in intensity since the prior study. Normal plantar calcaneal tubercles. Normal intrinsic muscles of the rearfoot. Normal distal tibiofibular syndesmotic ligamentous complex. Normal lateral ligamentous complex. Normal subtalar ligaments and sinus tarsi. Normal deltoid ligamentous complexes. Normal plantar calcaneonavicular (spring) ligament. Normal tibiotalar articulation. Normal talar dome. Normal subtalar articulations. Normal talonavicular articulation. Normal calcaneocuboid articulation. Normal navicular-cuneiform articulations. MRI/Lower Ext Joint Only (Routine) IMPRESSION: Improvement in proximal plantar fascia origin is compared to the prior study. Mild plantar fasciitis remains as described. Electronically Signed: Fran Woodson, at 10:15 EDT ,
== END | disposition home or self-care (01) ==
PROVIDERS: PCP Family Medicine; Referring Provider Podiatrist; Visit Provider Podiatrist
DX: M72.2 Plantar fascial fibromatosis (principal)
CPT/HCPCS: 73721

== ENCOUNTER → 2022-11-21 | Outpatient (CLI) | payer OTHER, SELFPAY ==
[2022-11-21 08:06] LABS: Cholesterol 219 mg/dL (200); High Density Lipoprotein 46 mg/dL; T4 Free Direct 1.73 ng/dL (0.76-1.46); Thyroid Stim Hormone (TSH) 0.03 uIU/mL (0.358-3.74); Triglycerides 190 mg/dL; Very Low Density Lipoprotein 38 mg/dL (5-40)
== END | disposition home or self-care (01) ==
PROVIDERS: PCP Family Medicine; Referring Provider Nurse Practitioner Family; Visit Provider Nurse Practitioner Family
DX: E78.5 Hyperlipidemia, unspecified (principal); E03.9 Hypothyroidism, unspecified
CPT/HCPCS: 36415; 80061; 84439; 84443; 84481

== ENCOUNTER → 2022-12-08 | Outpatient (CLI) | payer OTHER, SELFPAY ==
--- NOTE | 2022-12-08 15:13 | BI_ITS ---
MAMMOGRAPHY - BILATERAL SCREENING REASON FOR EXAM: Female, 47 years old. Routine annual screening examination. PERTINENT HISTORY: Mother with breast cancer. Grandmother with breast cancer. Aunt with breast cancer. TECHNIQUE: Digital bilateral breast milo (3D mammographic acquisition) in the CC and MLO projections. 2-D mediolateral oblique (MLO) and craniocaudad (CC) views of both breasts were obtained. CAD: Full Field Digital Mammography with Computer Added Detection was performed. COMPARISON: Comparison is made with prior examination dated November 22, 2021 and November 16, 2020. FINDINGS: Breast Composition: There are scattered areas of fibroglandular density. There are no dominant masses or suspicious calcifications. No other significant abnormalities are identified. There has been no significant change since the prior study. BI/SCRN MAMM (CAD)W/MILO BILAT IMPRESSION: Stable bilateral screening mammogram. Yearly follow-up mammogram recommended. (A) ASSESSMENT CATEGORY: BIRADS Category 1: Negative. A letter regarding these results will be sent to the patient by the facility within 30 days. Approximately 10% of breast cancers are not detected by mammography. A normal mammogram should not delay biopsy of a clinically suspicious abnormality. [id number] Electronically Signed: Gordon Grant MD at 8:32 EDT ,
== END | disposition home or self-care (01) ==
LOC: OPBI 15:12
PROVIDERS: PCP Family Medicine; Referring Provider Obstetrics & Gynecology; Visit Provider Obstetrics & Gynecology
DX: Z12.31 Encounter for screening mammogram for malignant neoplasm of breast (principal)
CPT/HCPCS: 77063; 77067

== ENCOUNTER → 2023-01-05 | Outpatient (CLI) | payer OTHER, SELFPAY ==
[2023-01-05 16:47] LABS: Thyroid Stim Hormone (TSH) 0.76 uIU/mL (0.358-3.74)
== END | disposition home or self-care (01) ==
LOC: LAB 15:19
PROVIDERS: PCP Family Medicine; Referring Provider Nurse Practitioner Family; Visit Provider Nurse Practitioner Family
DX: E03.9 Hypothyroidism, unspecified (principal)
CPT/HCPCS: 36415; 84436; 84443; 84481

== ENCOUNTER → 2023-02-02 | Outpatient (CLI) | payer OTHER, SELFPAY ==
[2023-02-02 17:38] LABS: Hematocrit 41.3 % (37-47); Hemoglobin 13.3 g/dL (12.0-15.0); Mean Corp Hgb Conc 32.2 g/dL (32-36); Mean Corpuscular Hgb 29.5 pg (27.0-32.0); Mean Corpuscular Volume 91.6 fL (81-99); Mean Platelet Vol. 9.6 fl (6.2-12.0); Platelet Count 422 K/mm3 (150-450); RBC Distribution Width CV 12.5 % (11.6-14.6); RBC Distribution Width SD 41.7 fl (35.1-43.9); Red Blood Count 4.51 M/mm3 (4.2-5.4); White Blood Count 8.6 K/mm3 (4.4-11.0)
[2023-02-02 17:52] LABS: Erythrocyte Sedimentation Rate 19 mm/hr (0-30)
[2023-02-02 18:17] LABS: Vitamin D,25 Hydroxy 49.2 ng/mL
[2023-02-02 18:25] LABS: ALB/GLOB Ratio 1.1 RATIO (0.9-2.4); AST(SGOT) 12 U/L (15-37); Alanine Aminotransfer ALT/SGPT 29 U/L (13-56); Albumin, Serum 3.8 g/dL (3.2-5.0); Alkaline Phosphatase 109 U/L (45-117); Anion Gap 7 (5-15); BUN 9 mg/dL (7-18); BUN/Creat Ratio 13.4 RATIO (10-20); CRP 9.06 mg/L (0.0-3.0); Calcium,Total 8.9 mg/dL (8.5-10.1); Chloride 108 mmol/L (98-107); Creatinine, Serum 0.67 mg/dL (0.55-1.02); EST Glomerular Filtration Rate 100 mL/min (>60); Est Glom Filt Rate - Afr Amer 121 mL/min (>60); Ferritin 52 ng/mL (8-252); Free T3 2.2 pg/mL (2.18-3.98); Globulin 3.6 g/dL (2.2-4.2); Glucose 97 mg/dL (74-106); Iron 53 ug/dL (50-170); Potassium 3.9 mmol/L (3.5-5.1); Protein, Total 7.4 g/dL (6.4-8.2); Sodium Level 140 mmol/L (136-145); T4 Free Direct 1.16 ng/dL (0.76-1.46); Thyroid Stim Hormone (TSH) 1.45 uIU/mL (0.358-3.74)
== END | disposition home or self-care (01) ==
LOC: MFPLAB 16:17
PROVIDERS: PCP Family Medicine; Visit Provider Family Medicine
DX: G25.81 Restless legs syndrome (principal); M79.7 Fibromyalgia; E03.9 Hypothyroidism, unspecified
CPT/HCPCS: 36415; 80053; 82306; 82533; 82728; 83540; 84439; 84443; 84481; 85027; 85652; 86140

== ENCOUNTER → 2023-03-31 | Outpatient (CLI) | payer OTHER, SELFPAY ==
[2023-03-31 07:55] LABS: ALB/GLOB Ratio 1.1 RATIO (0.9-2.4); AST(SGOT) 12 U/L (15-37); Alanine Aminotransfer ALT/SGPT 23 U/L (13-56); Albumin, Serum 3.6 g/dL (3.2-5.0); Alkaline Phosphatase 100 U/L (45-117); Anion Gap 7 (5-15); BUN 13 mg/dL (7-18); BUN/Creat Ratio 17.9 RATIO (10-20); Calcium,Total 8.5 mg/dL (8.5-10.1); Chloride 107 mmol/L (98-107); Creatinine, Serum 0.73 mg/dL (0.55-1.02); EST Glomerular Filtration Rate 91 mL/min (>60); Est Glom Filt Rate - Afr Amer 110 mL/min (>60); Free T3 2.5 pg/mL (2.18-3.98); Globulin 3.3 g/dL (2.2-4.2); Glucose 92 mg/dL (74-106); Potassium 3.9 mmol/L (3.5-5.1); Protein, Total 6.9 g/dL (6.4-8.2); Sodium Level 140 mmol/L (136-145); T4 Free Direct 1.36 ng/dL (0.76-1.46)
[2023-03-31 08:21] LABS: Insulin 10.8 mU/L (2.6-37.6)
[2023-04-04 16:08] LABS: Testosterone, % Free 1.64 % (0.50-2.80); Testosterone, Free 0.16 ng/dL (0.10-0.85); Testosterone, Total 10 ng/dL (4-50)
== END | disposition home or self-care (01) ==
LOC: LAB 06:41
PROVIDERS: PCP Family Medicine; Referring Provider Internal Medicine Endocrinology, Diabetes & Metabolism; Visit Provider Internal Medicine Endocrinology, Diabetes & Metabolism
DX: E03.8 Other specified hypothyroidism (principal); E28.1 Androgen excess; E28.2 Polycystic ovarian syndrome; E88.810 Metabolic syndrome
CPT/HCPCS: 36415; 80053; 83525; 84402; 84403; 84439; 84443; 84481

== ENCOUNTER → 2023-04-07 | Outpatient (CLI) | payer OTHER, SELFPAY ==
[2023-04-07 08:23] LABS: 24HR. Urine Creatinine 1.68 g/24 HR (0.70-1.90)
[2023-04-12 06:37] LABS: Cortisol, Free 24Ur 25 ug/24 hr (6-42); Cortisol, Urinary Free 10 ug/L (Undefined)
== END | disposition home or self-care (01) ==
LOC: LAB 06:51 → LABSPEC 06:52
PROVIDERS: PCP Family Medicine; Referring Provider Internal Medicine Endocrinology, Diabetes & Metabolism; Visit Provider Internal Medicine Endocrinology, Diabetes & Metabolism
DX: E28.2 Polycystic ovarian syndrome (principal)
CPT/HCPCS: 81050; 82530; 82570

== ENCOUNTER → 2023-07-22 | Outpatient (CLI) | payer OTHER, SELFPAY ==
--- OUTSIDE RECORDS SUMMARY | 2023-07-22 06:57 | XMS RPT_ITS | CCD ---
Author Name Unknown Address [address] [place] [address] Organization [facility] Care Team Providers Care Director Industrial Nursing Name Role Phone Mayra Barton Unavailable Unavailable Mayra Barton Unavailable Unavailable Joslyn Strange LPN Unavailable Unavailab barbara Quiles CNP, [place] Unavailable Delio KOVACS, Randal Cotter Primary Care Provider Roberto Cano Primary Care Provider YASMANI BASILIO CNP- Attending Unavailable YASMANI BASILIO CNP- Primary Care Unavailable YASMANI BASILIO CNP- Admitting Unavailable JOSY HYDE Attending Unavailable KELSEY VINSON Primary Care UnavailKelsey Lai MD Primary Care Provider JOSY HYDE Referring Unavailable KELSEY VINSON Primary Care UnavailSHAHIDA Peralta Attending Unavailable SHAHIDA DUMAS Admitting Unavailable Allergies Allergy Classification Reported Allergen(s) Allergy Type Date of Onset Reaction(s) Facility Penicillins (antibiotic) (1 source) Penicillins Drug Allergy 0 [facility] Work Phone: (8 sources) penicillin v Drug Allergy 6 Nausea, hives and stomach cramps, Nausea [facility] Work Phone: (3 sources) Penicillins; Translations: [PENICILLINS] Propensity to adverse reactions to drug (disorder) 0 [facility] Medications Completed/Discontinued Medications Medication Drug Class(es) Dates Sig (Normalized) Sig (Original) acetaminophen 300 mg / butalbital 50 mg / caffeine 40 mg oral capsule (4 sources) Barbiturate, Central Nervous System Stimulant, Methylxanthine Start: 05-28-2016 FIORICET 50-300-40 MG CAPS PRN for migraines [id number] AFFEINE [id number] Mayra Thompson HOSPITALIST PROGRAM DIRECTOR azelastine hydrochloride 0.137 mg/actuat / fluticasone propionate 0.05 mg/actuat metered dose nasal spray (5 sources) Corticosteroid, Histamine-1 Receptor Antagonist Start: 07-17-2016 take 1 spray(s) nasal route twice daily DYMISTA 137-50 MCG/ACT SUSP 1 spray each nostril twice daily AZELASTINE-FLUTIC ASONE [id number] Socorro Quiles [employer]OX [employer]ER Problems Active Problems Problem Classification Problem Date Documented Date Episodic/Chronic Disorders of lipid metabolism (2 sources) Mixed hyperlipidemia; Translations: [Mixed hyperlipidemia] Onset: 01-22-2011 01-22-2011 Chronic Esophageal disorders (2 sources) Gastroesophageal reflux disease; Translations: [Gastro-esophageal reflux disease without esophagitis] Onset: 01-22-2011 01-22-2011 Chronic Headache; including migraine (2 sources) Migraine; Translations: [Migraine, unspecified, not intractable, without status migrainosus] Onset: 01-22-2011 01-22-2011 Chronic Other screening for suspected conditions (not mental disorders or infectious disease) (3 sources) Encounter for screening for malignant neoplasm of colon; Translations: [Encounter for screening for malignant neoplasm of colon] Onset: 02-05-2023 Episodic Other upper respiratory disease (4 sources) Allergic rhinitis; Translations: [Allergic rhinitis, unspecified] Onset: 05-28-2016 05-28-2016 Chronic Other upper respiratory disease (2 sources) Seasonal allergy; Translations: [Other seasonal allergic rhinitis] Onset: 01-22-2011 01-22-2011 Chronic Thyroid disorders (3 sources) Hypothyroidism; Translations: [Hypothyroidism, unspecified] Onset: 01-22-2011 Chronic Past or Other Problems Problem Classification Problem Date Documented Da te Episodic/Chronic Headache, including migraine (4 sources) Headache; Translations: [Headache] Onset: 10-01-2016 10-01-2016 Episodic Other connective tissue disease (2 sources) Fibromyalgia; Translations: [Fibromyalgia] Onset: 01-22-2011 01-22-2011 Episodic Other connective tissue disease (2 sources) Plantar fascial fibromatosis; Translations: [Plantar fascial fibromatosis] Onset: 03-24-2012 03-24-2012 Episodic Other lower respiratory disease (4 sources) Chronic cough; Translations: [Cough] Onset: 05-28-2016 05-28-2016 Episodic Other upper respiratory infections (7 sources) Upper respiratory infection; Translations: [Posterior rhinorrhea] Onset: 05-28-2016 04-06-2017 Episodic Results Test Name Value Interpretation Reference Range Facil ity Vital Signs Date Time Vital Sign Value Performing Clinician Facility 03-11-2023 09:24-0400 Body height 167.6 cm Shahida Dumas MD Work Phone: [facility] 03-11-2023 09:24-0400 Body weight 108.86 kg Shahida Dumas MD Work Phone: [facility] 04-06-2017 07:13-0500 BMI (Body Mass Index) 40.4 kg/m2 Joslyn Fabianho HOSPITALIST PROGRAM DIRECTOR [facility] Work Phone: 04-06-2017 07:13-0500 Body Temperature 99.7 [degF] Joslyn Yensho HOSPITALIST PROGRAM DIRECTOR [facility] Work Phone: 04-06-2017 07:13-0500 BP Diastolic 83 mm[Hg] Joslyn Yensho HOSPITALIST PROGRAM DIRECTOR [facility] Work Phone: 04-06-2017 07:13-0500 BP Systolic 135 mm[Hg] Joslyn Yensho HOSPITALIST PROGRAM DIRECTOR [facility] Work Phone: 04-06-2017 07:13-0500 Height 170.18 cm Joslyn Yensho HOSPITALIST PROGRAM DIRECTOR [facility] Work Phone: 04-06-2017 07:13-0500 Pulse (Heart Rate) 88 /min Joslyn Cednsho HOSPITALIST PROGRAM DIRECTOR [facility] Work Phone: 04-06-2017 07:13-0500 Respiratory Rate 18 /min Joslyn Yensho HOSPITALIST PROGRAM DIRECTOR [facility] Work Phone: 04-06-2017 07:13-0500 Weight 117.03 kg Joslyn Strange HOSPITALIST PROGRAM DIRECTOR [facility] Work Phone: 10-01-2016 07:47-0400 BMI (Body Mass Index) 39.15 kg/m2 Socorro Quiles CNP [facility] Work Phone: 10-01-2016 07:47-0400 Body Temperature 97.6 [degF] Socorro Quiles [facility] Work Phone: 10-01-2016 07:47-0400 BP Diastolic 84 mm[Hg] Socorro Quiles [employer] [facility] Work Phone: 10-01-2016 07:47-0400 BP Systolic 124 mm[Hg] Socorro Quiles CNP [facility] Work Phone: 10-01-2016 07:47-0400 Height 170.18 cm Socorro Quiles CNP [facility] Work Phone: 10-01-2016 07:47-0400 Pulse (Heart Rate) 69 /min Socorro Quiles CNP [facility] Work Phone: 10-01-2016 07:47-0400 Respiratory Rate 18 /min Socorro Quiles CNP [facility] Work Phone: 10-01-2016 07:47-0400 Weight 113.4 kg Socorro Quiles CNP [facility] Work Phone: 07-08-2016 07:59-0500 Body Temperature 98.78 [degF] Socorro Quiles CNP [facility] Work Phone: 07-08-2016 07:59-0500 BSA (Body Surface Area) 2.23 m2 Socorro Quiles CNP [facility] Work Phone: 07-08-2016 07:59-0500 Height 170.18 cm Socorro Quiles CNP [facility] Work Phone: 07-08-2016 07:59-0500 Weight 114.09 kg Socorro Quiles CNP [facility] Work Phone: Encounters Encounter Date Encounter Type Care Provider Facility Start: 03-19-2023 End: 03-19-2023 ambulatory [facility] Facility:[facility] Start: 03-11-2023 ambulatory Shahida joel MD Work Phone: LD SURGERY Start: 02-05-2023 End: 02-06-2023 ambulatory [facility] Facility:[facility] Start: 11-26-2020 End: 11-26-2020 ambulatory [facility] Start: 09-13-2012 End: 09-13-2012 Tianna Kebede MD Work Phone: [facility] Procedures Date Procedure Procedure Detail Performing Clinician Start: 09-02-2016 End: 03-18-2017 [facility] Socorro De La O MOTOR VEHICLE CLERK Work Phone: Start: 09-02-2016 End: 03-18-2017 Follow Up Appt 1 month Socorro cotter [employer] Work Phone: Start: 07-25-2016 End: 07-31-2016 *[id number] Allergens,[id number] Socorro Quiles CNP Work Phone: Start: 07-08-2016 End: 07-08-2016 Chest x-ray Socorro De La O MOTOR VEHICLE CLERK Work Phone: Start: 07-08-2016 End: 07-08-2016 [facility] [place] MOTOR VEHICLE CLERK Work Phone: Start: 07-08-2016 End: 07-08-2016 Follow Up Appt 2 weeks Socorro cotter [employer] Work Phone: Start: 12-02-2011 Lipid 1996 panel - S desire or Plasma Shahida Dumas MD Work Phone: Plan of Treatment Date Care Activity Detail Author Start: 02-14-2031 Urine microalbumin profile DTaP,Tdap,Td Vaccine (2 - Td or Tdap) [facility] Start: 01-16-2023 Influenza vaccination Influenza Vaccine (#1) [facility] Start: 05-18-2022 Depression Assessment Depression Assessment [facility] Start: 01-16-2021 Influenza vaccination INFLUENZA (Season Ended) [facility] Start: 08-23-2020 Cologuard (FIT-DNA) Cologuard (FIT-DNA) [facility] Start: 08-23-2020 Colonoscopy Colonoscopy [facility] Start: 08-23-2020 Colorectal Cancer Screening Colorectal Cancer Screening [facility] Start: 08-23-[address] Colonography [facility] Start: 08-23-2020 DIABETES SCREEN DIABETES SCREEN [facility] Start: 08-23-2020 Diabetes Screening Diabetes Screening [facility] Start: 08-23-2020 Fecal Occult Blood Fecal Occult Blood [facility] Start: 08-23-2020 Lipid 1996 panel - Serum or Plasma Lipid Screening [facility] Start: 08-23-2020 LIPID SCREEN LIPID SCREEN [facility] Start: 08-23-2020 Sigmoidoscopy Sigmoidoscopy [facility] Start: 10-05-2017 End: 10-05-2017 Appointment Appointment [facility] Work Phone: Start: 04-06-2017 End: 04-06-2017 [facility] Work Phone: Start: 04-06-2017 End: 04-06-2017 Follow Up Appt 6 months Follow Up Appt 6 months [facility] Work Phone: Start: 04-06-2017 End: 04-06-2017 Appointment Appointment [facility] Work Phone: Start: 10-01-2016 End: 10-01-2016 [facility] Work Phone: Start: 10-01-2016 End: 10-01-2016 Follow Up Appt 6 months Follow Up Appt 6 months [facility] Work Phone: Start: 09-02-2016 End: 03-18-2017 D[facility] D[facility] Work Phone: Start: 09-02-2016 End: 03-18-2017 Follow Up Appt 1 month Follow Up Appt 1 month [facility] Phone: Start: 07-25-2016 End: 07-31-2016 *[email or web address] Allergens,[id number] *[email or web address] Allergens,[id number] [facility] Work Phone: Start: 07-08-2016 End: 07-08-2016 Chest x-ray X-Ray, Chest, PA & Lateral [facility] Phone: Start: 07-08-2016 End: 07-08-2016 [facility] Phone: Start: 07-08-2016 End: 07-08-2016 Follow Up Appt 2 weeks Follow Up Appt 2 weeks [facility] Phone: Start: 05-28-2016 End: 05-28-2016 Ct thorax w/o contrast material CT Chest without contrast [facility] Phone: Start: 05-28-2016 End: 05-28-2016 DMB DMB [facility] Phone: Start: 05-28-2016 End: 05-28-2016 Follow Up Appt 6 weeks Follow Up Appt 6 weeks [facility] Phone: Start: 05-28-2016 End: 05-28-2016 Pulmonary Function Test - complete Pulmonary Function Test - complete [facility] Phone: Start: 05-09-2016 PAP TESTING PAP TESTING [facility] Start: 2015 Mammography [facility] Start: 08-23-2005 HPV TESTING HPV TESTING [facility] Start: 08-23-1994 Urine microalbumin profile DTAP,TDAP,TD (1 - Tdap) [facility] Start: 08-23-1993 Annual PCP Team Chronic Disease Visit Annual PCP Team Chronic Disease Visit [facility] Start: 08-23-1993 HEPATITIS C SCREENING HEPATITIS C SCREENING [facility] Start: 08-23-1993 HIV SCREENING HIV SCREENING [facility] Start: 1987 Adult depression screening assessment DEPRESSION SCREENING [facility] Start: 02-23-1976 Covid-19 Vaccine (#1) Covid-19 Vaccine (#1) [facility] Start: 1975 Hepatitis B Vaccine (1 of 3 - 3-dose series) Hepatitis B Vaccine (1 of 3 - 3-dose series) [facility] Payers Date Payer Category Payer Private Health Insurance [facility] UMR CHOICE PLUS [id number] 2022-Present [phone] [address] [address] [place] [address] HMO [id number] 2022 Unknown [id number] 2010 Private Health Insurance [employer] A ETNA CHOICE POS II [id number] 2010-2015 POS [id number] Social History Date Type Detail Facility Start: 01-22-2011 End: 03-24-2012 Tobacco smoking status NHIS Never smoker [facility] Work Phone: Start: 03-24-2012 End: 03-11-2023 Alcohol intake Current drinker of alcohol (finding) [facility] Start: 01-22-2011 [facility] Start: 1975 Sex Assigned At Not on file [facility] Start: 02-05-2023 End: 03-11-2023 History of Social function [facility] Start: 02-05-2023 End: 03-11-2023 Tobacco use panel [facility] National Score (1-10 0), lower number is lower risk 47 [facility] Start: 1975 Sex Assigned At [facility] Start: 02-04-2023 Gender identity Identifies as female gender (finding) [facility] Start: 02-04-2023 Sexual orientation Heterosexual (fin ding) [facility] Nurse Note 03-11-2023 Estrellita Velazquez RN - 03/11/2023 9:36 AM EDT Note Date & Type Note Facility 03-11-2023 Nurse Note Images from the original note were not included. Pre-Procedure Checklist [place] [phone] (home) 1975 47 year old Body mass index is 38.74 kg/m . Wt 240 lb ht 5f 6in Allergies: Penicillins Hives Procedure: colonoscopy Date of Procedure: 03/19/23 Smoke: No Alcohol: Yes Street Drugs: No Diabetic: No Insulin: No Problems with Anesthesia (Self or Family?) No Bottom Filler: None Saw regulatory affairs assistant in the last 6 months? No Recent EKG/Cardiac Testing: No Chest pain in the last 6 months (<6 months cardiac clearance needed): No History of: Heart Attack/Stroke/Blood Clot?: patient denies Shortness of Breath: No Asthma:No- hx bronchitis Inhalers: Yes Any Outstanding Consults?: No If yes, list: N/A Additional Notes:Pre-op urine HCG needed documented in this encounter [facility] Progress note 02-05-2023 Note Date & Type Note Facility 02-05-2023 Note HNO ID: [id number] Author: Josy Hyde PA-C Service: ? Author Type: Physician Wood Cutter Type: Progress Notes Filed: 02/17/2023 12:38 PM Note Text: HISTORY AND PHYSICAL [place] 1975 REFERRING PHYSICIAN: No ref. provider found CHIEF COMPLAINT: Consult (Colonoscopy, no prior colonoscopy, pcp referral/) HPI: The patient is a 47 year old female referred for endoscopy. Le notes no colon complaints currently. NOTES several diverticulitis episodes over the last couple of years, most recently last September. Had CT scan at [facility], was treated with oral antibiotics and symptoms resolved. Patient denies any change in bowel habits, weight changes, blood in stools, black tarry stools or abdominal pain. Denies family history of colon issues. The patient notes no upper GI complaints. Le has not undergone prior endoscopy. PAST MEDICAL HISTORY Diagnosis Date Diverticulitis Fibromyalgia GERD (gastroesophageal reflux disease) Hypothyroidism PAST SURGICAL HISTORY Procedure Laterality Date PAST SURGICAL HISTORY OF 05/18/2010 Ablation, tubal ([facility]) PAST SURGICAL HISTORY OF 05/18/2002 PAST SURGICAL HISTORY OF Right foot Current Outpatient Medications Medication Sig levothyroxine (SYNTHROID) 175 mcg tablet Take 1 tablet by mouth once daily. rizatriptan (MAXALT) 10 mg ORAL tablet Take 1 tablet by mouth. at onset of headache. May repeat after 2 hours. Do not exceed 30 mg per day. multivitamin ORAL tablet Take 1 tablet by mouth once daily. No current facility-administered medications for this visit. ALLERGIES: Penicillins PERSONAL HISTORY: Social History Tobacco Use Smoking status: Never Vaping Use Vaping Use: Never used Substance Use Topics Alcohol use: Yes Comment: ocassionally Drug use: Never FAMILY HISTORY: FAMILY HISTORY Problem Relation Age of Onset Cancer Father Renal cell carcinoma Hypertension Father Lipids Father Hypertension Mother Lipids Mother Breast Cancer Maternal Grandmother Stroke Maternal Grandfather Colon Cancer Other none Diabetes Other none REVIEW OF SYMPTOMS: The review of systems data was entered by the nurse and reviewed by me Nursing Notes: Zamzam Bhatt LPN 02/05/2023 3:06 PM Signed REVIEW OF SYSTEMS: General: The patient denies fatigue, notes weight loss, denies weight gain, denies feeling hot, and denies feelings of cold. Eyes: The patient denies glaucoma, denies eye injury/surgery, wears glasses or contacts. Ear/Nose/Throat: The patient notes allergies, denies hayfever, denies ear infections, and denies bloody noses. Cardiovascular: The patient denies chest pain, denies heart disease, denies high blood pressure,denies cardiac stent, denies prior heart attack, denies irregular heart beat, notes high cholesterol, denies poor circulation, denies heart failure, other cardiac issues, denies claudication, denies cold feet, denies peripheral arterial stent. Respiratory: The patient denies tuberculosis, notes pneumonia, denies frequent cough, denies pulmonary embolism, denies shortness of breath, and denies coughing up blood. Gastrointestinal: The patient denies difficulty swallowing, denies acid reflux, denies ulcers, denies vomiting, denies jaundice/hepatitis, denies gallbladder problems, denies black or tarry stools, notes hemorrhoids, denies bleeding from rectum, notes diverticulitis, notes constipation, notes diarrhea, denies loss of stool control, and denies hernias. Kidney/Bladder: The patient denies kidney stones, notes urine infections, and denies bloody urine. Skin: The patient denies a history of skin cancer, denies bleeding/changing moles, and denies a history of skin rash. Neurologic: The patient denies a history of epilepsy/convulsions, notes headaches, denies head/spinal injuries, and denies stroke/TIA. Psychiatric: The patient denies psychiatric medications, denies depression, and denies voices, denies substance abuse. Endocrine: The patient notes thyroid disorders, denies diabetes, and denies hormonal problems. Hematologic: The patient denies a history of bruising, denies bleeding, and denies anemia, denies blood clots. Infections: The patient denies a history of measles and mumps, denies rheumatic fever, and denies sexually transmitted diseases. Musculoskeletal: The patient denies back pain/injury, denies back problems, denies sciatica, denies knee/foot trouble, denies arthritis, or denies gout. When was patient's last Mammogram screening? 2022 Last Colonoscopy: none Zamzam Bhatt LPN I have confirmed and edited as necessary, the PFSH and ROS obtained by others. Josy Hyde PA-C PHYSICAL EXAMINATION: General: The patient is 47 year old female, well nourished, well hydrated in no acute distress. The patient is oriented to time, place, and person. VITALS: Blood pressure 118/76, pulse 82, temperature 36.6 ?C (97.9 ?F), he (more content not included)... [facility] Note 09-13-2012 Telephone Encounter - Jessy Maria Lpn - 09/13/2012 4:25 PM EDTTelephone Encounter - Shefali Hinton LPN - 09/13/2012 4:15 PM EDTTelephone Encounter - Jessy Maria Lpn - 09/13/2012 12:35 PM EDT Note Date & Type Note Facility 09-13-2012 Miscellaneous Notes Pt states she is transferring to Dr Roberto Cano. Pt states she will call back if she can't see him within 90 days. Message left for patient to call office. Please schedule f/u appt for patient. One refill sent. Pt due for labs and appt. Thanks, Rosa Solis PA-C Pharmacy calls in requesting the following refill(s): Pending Prescriptions Disp Refills LEVOTHYROXINE 175 MCG TABLET 90 tablet 0 Sig: Take 1 tablet by mouth once daily. Last appt October 2011 documented in this encounter [facility] Evaluation note Note Date & Type Note Facility documented in this encounter [facility] Summary Purpose Family History No Family History Records FoundNo Family History Records FoundNo Family History Records Found Advance Directives No Advanced Directives Records FoundNo Advanced Directives Records FoundNo Advanced Directives Records Found Additional Source Comments Source Comments (unrecognize d section and content) In the event this informatio n is protected by the Federal Confidentiality of Alcohol and Drug Abuse Patient Records regulations: The Federal rules restrict any use of the information to criminally investigate or prosecute any alcohol or drug abuse patient.[facility] the event this information is protected by the Federal Confidentiality of Alcohol and Drug Abuse Patient Records regulations: The Federal rules restrict any use of the information to criminally investigate or prosecute any alcohol or drug abuse patient.[facility] Reason for Visit (unrecogniz ed section and content) INFORMATION SOURCE (unrecogn ized section and content) DATE CREATED AUTHOR AUTHOR'S CHETANIZ ATION 02/21/2023 [facility] DATE CREATED AUTHOR AUTHOR'S ORGANIZ ATION 03/20/2023 [facility] Care Teams (unrecognized sec tion and content) FOR RECORDS PERTAINING TO PATIENTS WHO ARE OR HAVE BEEN ENROLLED IN A CHEMICAL DEPENDENCY/SUBSTANCEABUSE PROGRAM, SOME INFORMATION MAY BE OMITTED. This clinical summary was aggregated from multiple sources. Caution should be exercised in using it in the provision of clinical care. This summary normalizes information from multiple sources, and as a consequence, information in this document may materially change the coding, format and clinical context of patient data. In addition, data may be omitted in some cases. CLINICAL DECISIONS SHOULD BE BASED ON THE PRIMARY CLINICAL RECORDS. [facility]. provides no warranty or guarantee of the accuracy or completeness of information in this document.
[2023-07-22 08:58] LABS: Thyroid Stim Hormone (TSH) 0.65 uIU/mL (0.358-3.74)
== END | disposition home or self-care (01) ==
LOC: LAB 06:48
PROVIDERS: PCP Family Medicine; Referring Provider Internal Medicine Endocrinology, Diabetes & Metabolism; Visit Provider Internal Medicine Endocrinology, Diabetes & Metabolism
DX: E03.8 Other specified hypothyroidism (principal)
CPT/HCPCS: 36415; 84443

== ENCOUNTER → 2023-10-05 | Outpatient (CLI) | payer OTHER, SELFPAY ==
[2023-10-05 08:51] LABS: Estradiol 26.1 pg/mL; Follicle Stimulating Hormone 11.7 mIU/mL; Luteinizing Hormone 5.3 mIU/mL; T4 Free Direct 1.24 ng/dL (0.76-1.46); Thyroid Stim Hormone (TSH) 2.07 uIU/mL (0.358-3.74)
== END | disposition home or self-care (01) ==
LOC: LAB 07:03
PROVIDERS: PCP Family Medicine; Visit Provider Internal Medicine Endocrinology, Diabetes & Metabolism
DX: N91.2 Amenorrhea, unspecified (principal); E03.8 Other specified hypothyroidism; E06.3 Autoimmune thyroiditis
CPT/HCPCS: 36415; 82627; 82670; 83001; 83002; 84439; 84443; 82626

== ENCOUNTER → 2023-12-15 | Outpatient (CLI) | payer OTHER, SELFPAY ==
--- NOTE | 2023-12-15 07:44 | BI_ITS ---
MAMMOGRAPHY - BILATERAL SCREENING REASON FOR EXAM: Female, 48 years old. Routine annual screening examination. PERTINENT HISTORY: Mother with breast cancer. Grandmother with breast cancer. Aunt with breast cancer. TECHNIQUE: Digital bilateral breast milo (3D mammographic acquisition) in the CC and MLO projections. 2-D mediolateral oblique (MLO) and craniocaudad (CC) views of both breasts were obtained. CAD: Full Field Digital Mammography with Computer Added Detection was performed. COMPARISON: Comparison is made with prior study dated December 08, 2022 and November 22, 2021. FINDINGS: Breast Composition: The breasts are almost entirely fatty. There are no dominant masses or suspicious calcifications. No other significant abnormalities are identified. There has been no significant change since the prior study. BI/SCRN MAMM (CAD)W/MILO BILAT IMPRESSION: Stable bilateral screening mammogram. Yearly follow-up mammogram recommended. (A) ASSESSMENT CATEGORY: BIRADS Category 1: Negative. A letter regarding these results will be sent to the patient by the facility within 30 days. Approximately 10% of breast cancers are not detected by mammography. A normal mammogram should not delay biopsy of a clinically suspicious abnormality. [id number] Electronically Signed: Gordon Grant MD at 8:54 EDT ,
== END | disposition home or self-care (01) ==
LOC: OPBI 07:44
PROVIDERS: PCP Family Medicine; Referring Provider Obstetrics & Gynecology; Visit Provider Obstetrics & Gynecology
DX: Z12.31 Encounter for screening mammogram for malignant neoplasm of breast (principal)
CPT/HCPCS: 77063; 77067

== ENCOUNTER → 2024-07-08 | Outpatient (CLI) | payer OTHER, SELFPAY | END | disposition home or self-care (01) | PROVIDERS: PCP Family Medicine; Referring Provider Nurse Practitioner Acute Care; Visit Provider Nurse Practitioner Acute Care | DX: R50.9 Fever, unspecified (principal); R53.81 Other malaise; R53.83 Other fatigue | CPT/HCPCS: 87631 ==

== ENCOUNTER → 2024-09-13 | Outpatient (CLI) | payer OTHER, SELFPAY ==
[2024-09-13 15:36] LABS: Bacteria 0 SEEN /hpf (None Seen); Mucous, Urine 0 SEEN /hpf (<or=2+)
[2024-09-13 15:38] LABS: Absolute Lymphocyte Count 2.83 X10^3/uL (0.83-4.51); Basophil# 0.08 X10^3/uL; Basophil% 0.9 % (0-1); Eosinophil# 0.21 X10^3/uL; Eosinophils% 2.4 % (0-5); Hemoglobin 13.5 g/dL (12.0-15.0); Lymphocyte # 2.83 X10^3/ul (0.83-4.51); Lymphocyte % 32.5 % (19-41); Mean Corp Hgb Conc 33.8 g/dL (32-36); Mean Corpuscular Hgb 30.8 pg (27.0-32.0); Mean Corpuscular Volume 91.1 fL (81-99); Mean Platelet Vol. 9.4 fl (6.2-12.0); Monocyte# 0.62 X10^3/uL; Monocyte% 7.1 % (0-10); NRBC Flagged by Analyzer 0 % (0-5); Neutrophil # 4.95 X10^3/uL (2.7-7.7); Neutrophil % 56.9 % (47-70); Platelet Count 397 K/mm3 (150-450); RBC Distribution Width CV 12.2 % (11.6-14.6); RBC Distribution Width SD 40.7 fl (35.1-43.9); Red Blood Count 4.39 M/mm3 (4.2-5.4); White Blood Count 8.7 K/mm3 (4.4-11.0)
[2024-09-13 16:18] LABS: Thyroid Stim Hormone (TSH) 0.709 uIU/mL (0.300-4.200)
[2024-09-13 16:41] LABS: Glucose, Dipstick Normal (Normal); Ketone-Dipstick Negative (Negative); Leukocyte Esterase-Dipstick 500 /ul (Negative); Nitrite-Dipstick Negative (Negative); Occult Blood-Urine 10 /ul (Negative); Protein-Dipstick Negative (Negative); Specific Gravity, Urine 1.005 (1.002-1.030); Urine Bilirubin Dipstick Negative (Negative); Urine Urobilinogen Normal (Normal)
[2024-09-13 16:49] LABS: Color, Urine Straw (Yellow); Urine Clarity Sl Cldy (Clear)
[2024-09-13 17:38] LABS: Red Blood Cells-Urine 0-5 SEEN /hpf (0-5); White Blood Cells 50-100 SEEN /hpf (0-5)
[2024-09-13 17:44] LABS: Transitional Epithelial - Ur 0-5 SEEN /hpf (0-5)
[2024-09-13 17:45] LABS: Squamous Epithelial Cells - UA 0-5 SEEN /hpf (5-10)
== END | disposition home or self-care (01) ==
LOC: LAB 14:31
PROVIDERS: PCP Family Medicine; Referring Provider Internal Medicine Endocrinology, Diabetes & Metabolism; Visit Provider Internal Medicine Endocrinology, Diabetes & Metabolism
DX: E06.3 Autoimmune thyroiditis (principal); E03.8 Other specified hypothyroidism; R30.0 Dysuria
CPT/HCPCS: 36415; 81001; 84443; 85025; 87077; 87086; 87088; 87186

== ENCOUNTER → 2024-12-19 | Outpatient (CLI) | payer OTHER, SELFPAY ==
--- NOTE | 2024-12-19 07:31 | BI_ITS ---
EXAM: SCRN MAMM (CAD)W/MILO BILAT DATE: 12/19/2024 CLINICAL HISTORY: F, Age 49 y/o , SCREENING MAMMOGRAM TECHNIQUE: SCRN MAMM (CAD)W/MILO BILAT COMPARISON: Prior exam(s) dated 12/15/2023 and and 12/08/2022. FINDINGS: TISSUE DENSITY: The breasts are almost entirely fatty. Bilateral Breast Mammographic Findings: Benign-appearing round microcalcifications are seen in both breasts. No suspicious masses, suspicious cluster of microcalcifications, architectural distortion or secondary sign of malignancy is identified in either breast. BI/SCRN MAMM (CAD)W/MILO BILAT IMPRESSION: Benign screening mammogram. OVERALL FINAL ASSESSMENT BI-RADS 2: BENIGN RECOMMENDATION: Routine annual follow-up in 1 Year A letter with findings and recommendations will be mailed to the patient. Reading Location: [id number]
--- OUTSIDE RECORDS SUMMARY | 2024-12-19 07:33 | XMS RPT_ITS | CCD ---
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 Fransico Kennedy Primary Care Provider Dr. Fransico Kennedy Referring Provider Dr. Keely Carpio Attending Provider [phone] Dr. Fransico Kennedy Primary Care Provider [phone] Dr. Fransico Kennedy Referring Provider Dr. Keely Carpio Attending Provider [phone] SHEA HYDE Attending Unavailable KELSEY KENNEDY Primary Care Kelsey العلي MD Primary Care Provider SHEA HYDE Referring Unavailable KELSEY KENNEDY Primary Care SHAHIDA Lloyd Attending Unavailable SHAHIDA DUMAS Admitting Unavailable Dr. Fransico Kennedy Primary Care Provider Dr. Fransico Kennedy Referring Provider Dr. Keely Carpio Attending Provider [phone]. Fransico Cifuentes Primary Care Provider [phone] Dr. Fransico Kennedy Referring Provider Dr. Primitivo Martinez Attending Provider [phone] Jed Russo Attending Unavailable Kesley Kennedy Referring Unavailable Kelsey Kennedy Primary Care Unavailable Keely Carpio Referring UnavailKeely Rivera Attending [facility]availjason [facility] Unavailable Kelsey Kennedy Referring Unavailable Kb GLUE MACHINE OPERATORSocorro Attending Unavailable Keely Carpio Attending Unavailjason Kennedy [facility] Unavailable Kelsey Kennedy Referring Unavailable Kelsey Kennedy Primary Care Unavailable Kb GLUE MACHINE OPERATORSocorro Referring Unavailable Kb GLUE MACHINE OPERATOR, Socorro Attending Unavailable Kelsey Kennedy Primary Care Unavailable Jed Russo Referring Unavailable Jed Russo Attending Unavailable Allergies Allergy Classification Reported Allergen(s) Allergy Type Date of Onset Reaction(s) Facility Penicillins (antibiotic) (1 source) Penicillins Drug Allergy 0 [facility] Work Phone: (8 sources) penicillin v Drug Allergy 6 Nausea, hives and stomach cramps, Nausea [facility] Work Phone: (13 sources) Penicillin V Drug Allergy 1 Nausea, stomach cramps, hives [facility] (4 sources) Penicillins; Translations: [PENICILLINS] Propensity to adverse reactions to drug (disorder) 0 [facility] Repository Medications Current Medications Medication Drug Class(es) Dates Sig (Normalized) Sig (Original) ascorbic acid 500 mg oral capsule (1 source) Vitamin C Start: 07-09-2023 take 500 mg by mouth once daily Ascorbic Acid (Vitamin C) Active 500 MG PO DAILY July 09, 2023 1:00am cholecalciferol 0.125 mg oral capsule (1 source) Vitamin D Start: 07-09-2023 take 125 ug by mouth once daily Cholecalciferol (Vitamin D3) Active 125 MCG PO DAILY July 09, 2023 1:00am ferrous sulfate 325 mg oral tablet (1 source) Start: 07-09-2023 take 1 tablet by mouth once daily Ferrous Sulfate (Feosol) 325 mg (65 mg iron) tablet Active 325 MG PO DAILY July 09, 2023 1:00am 30 actuat fluticasone furoate 0.2 mg/actuat / vilanterol 0.025 mg/actuat dry powder inhaler (1 source) Corticosteroid, beta2-Adrenergi c Agonist Start: 05-25-2023 Fluticasone Furoate-Vilanterol (Breo Ellipta) 200-25 mcg/dose blister with device Active 1 INH INHALATION daily 60 May 25, 2023 1:00am after inhalation, rinse mouth with water and spit out; do not swallow iodine 0.15 mg oral tablet (4 sources) Start: 01-14-2023 Iodine Active MCG PO January 14, 2023 12:00am Lactobacillus Combination No.4 (Probiotic) 3 billion cell capsule (4 sources) Start: 01-14-2023 take 3 capsules by mouth once daily Lactobacillus Combination No.4 (Probiotic) 3 billion cell capsule Active 3000 MMU CELLS PO DAILY January 13, 2023 11:00pm administer with a meal Start: 01-14-2023 take 3 capsules by m out once daily Lactobacillus Combination No.4 (Probiotic) 3 billion cell capsule Active 3000 MMU CELLS PO DAILY January 14, 2023 12:00am administer with a meal Magnesium glycinate (1 source) Start: 07-09-2023 take 200 mg by mouth once daily Magnesium Glycinate Active 200 MG PO DAILY July 09, 2023 1:00am Multivitamin preparation (4 sources) Start: 01-14-2023 take 1 tablet by mouth once daily Multivitamin Active 1 TABLET PO DAILY January 13, 2023 11:00pm Start: 01-14-2023 take 1 tablet by suzanne once daily Multivitamin Active 1 TABLET PO DAILY January 14, 2023 12:00am riboflavin 400 mg oral tablet (1 source) Start: 07-09-2023 take 400 mg by mouth once daily Riboflavin (Vitamin B2) Active 400 MG PO DAILY July 09, 2023 1:00am SUMAtriptan 50 mg oral tablet (1 source) Serotonin-1b and Serotonin-1d Receptor Agonist Start: 07-09-2023 take 1 tablet by mouth every two hours Sumatriptan Succinate (Imitrex) 50 mg tablet Active 0 PO .COMPLEX July 09, 2023 1:00am take 1 tab at onset of headache; if no relief may repeat 1 tab after at least 2 hrs; max = 4 tabs/24 hr PO levothyroxine sodium 0.175 mg oral tablet (20 sources) l-Thyroxine Start: 09-30-2017 take 1 tablet by mouth once daily Levothyroxine (Synthroid) 175 mcg tablet Active 175 MCG PO daily September 30, 2017 12:00am Start: 11-26-2011 End: 09-13-2012 take 1 tablet by mouth once daily Levothyroxine (Synthroid) 175 mcg tablet Active 175 MCG PO daily September 30, 2017 12:00am Start: 11-26-2011 LEVOTHYROXINE SODIUM 25 MCG TABS LEVOTHYROXINE SODIUM [id number] Mayra Barton Comment on above: Take 1 tablet by suzanne th once daily. Completed/Discontinued Medications Medication Drug Class(es) Dates Sig (Normalized) Sig (Original) acetaminophen 300 mg / butalbital 50 mg / caffeine 40 mg oral capsule (17 sources) Barbiturate, Central Nervous System Stimulant, Methylxanthine Start: 09-30-2017 End: 03-25-2018 take 1 capsule by mouth every four hours Butalbital-Acetam inophen-Caff (Fioricet) 50-300-40 mg capsule Discontinued 1 CAP PO Q4H September 30, 2017 12:00am March 25, 2018 5:38pm Start: 05-28-2016 FIORICET 50-30 0-40 MG CAPS PRN for migraines [id number] Mayra Thompson LPN [id number] 200 actuat albuterol 0.09 mg/actuat metered dose inhaler (20 sources) beta2-Adrenergic Agonist Start: 05-03-2021 take 1 puff(s) by inhalation every four hours Albuterol Sulfate (Ventolin Hfa) 90 mcg/actuation HFA aerosol inhaler Active 2 PUFF INHALATION Q4H May 03, 2021 2:59pm Start: 03-13-2021 End: 05-03-2021 take 1 puff(s) by inhalation every four hours Albuterol Sulfate (Ventolin Hfa) 90 mcg/actuation HFA aerosol inhaler Discontinued 2 PUFF INHALATION Q4H March 13, 2021 2:43pm May 03, 2021 3:00pm Start: 12-02-2019 End: 07-09-2023 take 1 puff(s) by inhalation every four hours Albuterol Sulfate (Ventolin Hfa) 90 mcg/actuation HFA aerosol inhaler Discontinued 2 PUFF INHALATION Q4H March 13, 2021 2:43pm May 03, 2021 3:00pm azelastine hydrochloride 0.137 mg/actuat / fluticasone propionate 0.05 mg/actuat metered dose nasal spray (20 sources) Corticosteroid, Histamine-1 Receptor Antagonist Start: 04-01-2021 End: 04-29-2023 azelastine-fluticasone 137 mcg-50 mcg/spray nasal spray Discontinued 1 SPRAY INTRANASAL Q12H June 26, 2021 11:41am May 13, 2022 8:21am Start: 01-24-2019 End: 12-02-2019 take 1 spray(s) nasal route twice daily azelastine-fluticasone 137 mcg-50 mcg/spray nasal spray Discontinued 1 SPRAY INTRANASAL TWICE A DAY January 24, 2019 10:21am December 02, 2019 10:28am administer into each nostril Start: 09-30-2017 End: 10-26-2018 azelastine-fluticasone 137 m cg-50 mcg/spray nasal spray Discontinued 1 SPRAY INTRANASAL Q12H September 30, 2017 12:00am October 26, 2018 8:21am Start: 07-17-2016 take 1 spray(s) nasa l route twice daily DYMISTA 137-50 MCG/ACT SUSP 1 spray each nostril twice daily AZELASTINE-FLUTICASONE [id number] Socorro Quiles [employer] SALES ASSOCIATE azelastine/fluti casone (DYMISTA NASAL) Use in the nose once daily. 0 Active Comment on above: Use in the nose once daily. azithromycin 250 mg oral tablet (17 sources) Macrolide Antimicrobial Start: 06-01-2023 End: 07-09-2023 Azithromycin Discontinued 0 PO .COMPLEX June 01, 2023 1:00am July 09, 2023 12:38pm take 500 mg today (day 1), then 250 mg for 4 days (days 2-5) PO Start: 02-13-2023 End: 04-29-2023 Azithromycin Discontinued 0 PO .COMPLEX February 13, 2023 12:00am April 29, 2023 8:21am take 500 mg today (day 1), then 250 mg for 4 days (days 2-5) PO Start: 08-07-2017 End: 03-08-2018 take 250 mg by mouth once daily Azithromycin Discontinued 250 MG PO daily August 07, 2017 12:00am March 08, 2018 2:15pm buPROPion hydrochloride 100 mg oral tablet (8 sources) Aminoketone Start: 11-26-2011 End: 05-28-2016 BUPROPION HCL 100 MG TABS BUPROPION HCL [id number] Mayra Barton cholecalciferol, vitamin D3, (VITAMIN D3 ORAL) (1 source) cholecalciferol, vitamin D3, (VITAMIN D3 ORAL) Take by mouth once daily. 0 Active Comment on above: Take by mouth once d aily. cyclobenzaprine hydrochloride 10 mg oral tablet (20 sources) Muscle Relaxant Start: 03-30-2018 End: 09-24-2022 take 10 mg by mouth three times daily Cyclobenzaprine Discontinued 10 MG PO THREE TIMES A DAY December 11, 2020 7:42am January 03, 2022 12:17pm use sparingly dexamethasone 6 mg oral tablet (13 sources) Corticosteroid Start: 03-15-2021 End: 05-03-2021 take 1 tablet by mouth once daily Dexamethasone (Decadron) 6 mg tablet Discontinued 6 MG PO DAILY March 15, 2021 12:00am May 03, 2021 2:45pm doxycycline hyclate 100 mg oral tablet (13 sources) Tetracycline-class Drug Start: 03-03-2018 End: 03-25-2018 take 100 mg by mouth twice daily Doxycycline Hyclate Discontinued 100 MG PO TWICE A DAY March 03, 2018 12:00am March 25, 2018 5:39pm escitalopram 10 mg oral tablet (1 source) Serotonin Reuptake Inhibitor Start: 04-22-2012 End: 03-12-2016 take 1 tablet by mouth once daily escitalopram (LEXAPRO) 10 mg tablet Take 1 tablet by mouth once daily. 30 tablet 0 04/22/2012 03/12/2016 Discontinued (Discontinued by Patient) Comment on above: Take 1 tablet by suzanne th once daily. Levonorgestrel-Ethin yl Estrad (13 sources) Progestin, Estrogen, Progestin-containin g Intrauterine Device Start: 10-26-2018 End: 01-20-2020 take 1 tablet by mouth once daily Levonorgestrel-Ethin yl Estrad Discontinued 1 TABLET PO DAILY October 26, 2018 8:32am January 20, 2020 9:13am Start: 10-26-2018 End: 01-20-2020 take 1 tablet by mouth once daily Levonorgestrel-Ethinyl Estrad Discontinued 1 TABLET PO DAILY October 25, 2018 11:00pm January 20, 2020 8:13am Start: 10-26-2018 End: 01-20-2020 take 1 tablet by mouth once daily Levonorgestrel-Ethinyl Estrad Discontinued 1 TABLET PO DAILY October 26, 2018 12:00am January 20, 2020 9:13am Norgestimate-Ethinyl Estradiol (20 sources) Progestin, Estrogen Start: 06-01-2018 End: 01-20-2020 take 1 tablet by mouth once daily Norgestimate-Ethinyl Estradiol (Sprintec (28)) 0.25-35 mg-mcg tablet Discontinued 1 TABLET PO DAILY June 01, 2018 4:09pm January 20, 2020 9:13am PT TO TAKE CONTINUOUS Start: 06-01-2018 End: 01-20-2020 take 1 tablet by mouth once daily Norgestimate-Ethinyl Estradiol (Sprintec (28)) 0.25-35 mg-mcg tablet Discontinued 1 TABLET PO DAILY June 01, 2018 12:00am January 20, 2020 8:13am PT TO TAKE CONTINUOUS Start: 06-01-2018 End: 01-20-2020 take 1 tablet by mouth once daily Norgestimate-Ethinyl Estradiol (Sprintec (28)) 0.25-35 mg-mcg tablet Discontinued 1 TABLET PO DAILY June 01, 2018 1:00am January 20, 2020 9:13am PT TO TAKE CONTINUOUS Start: 04-27-2018 End: 07-19-2018 Norgestimate-Ethinyl Estradi ol (Sprintec (28)) 0.25-35 mg-mcg tablet Discontinued 1 TABLET PO daily April 27, 2018 9:38am July 19, 2018 9:21am take only active pills, discard inactive and start new pack. if bleeding is longer > 7 days take four days off and restart active pills. Start: 04-27-2018 End: 07-19-2018 Norgestimate-Ethinyl Estradi ol (Sprintec (28)) 0.25-35 mg-mcg tablet Discontinued 1 TABLET PO daily April 27, 2018 12:00am July 19, 2018 8:21am take only active pills, discard inactive and start new pack. if bleeding is longer > 7 days take four days off and restart active pills. Start: 04-27-2018 End: 07-19-2018 Norgestimate-Ethinyl Estradi ol (Sprintec (28)) 0.25-35 mg-mcg tablet Discontinued 1 TABLET PO daily April 27, 2018 1:00am July 19, 2018 9:21am take only active pills, discard inactive and start new pack. if bleeding is longer > 7 days take four days off and restart active pills. fluticasone propionate 0.05 mg/actuat metered dose nasal spray (8 sources) Corticosteroid Start: 05-28-2016 End: 07-25-2016 take 1 spray(s) nasal route once daily FLONASE ALLERGY RELIEF 50 MCG/ACT SUSP 1 spray in each nostril daily FLUTICASONE PROPIONATE [id number] Mayra Thompson DIRECTOR OF TRANSPORTATION 14 actuat fluticasone propionate 0.25 mg/actuat / salmeterol 0.05 mg/actuat dry powder inhaler (12 sources) Corticosteroid, beta2-Adrenergic Agonist Start: 03-25-2016 End: 05-28-2016 take 1 puff(s) by inhalation twice daily ADVAIR DISKUS 250-50 MCG/DOSE AEPB inh one puff twice a day for 30 days FLUTICASONE-SALMET DAWSON [id number] Mayra Barton Inulin (1 source) inulin (FIBER GUMMIES ORAL) Take by mouth once daily. 0 Active Comment on above: Take by mouth once d aily. Lactobacillus acidophilus (1 source) Lactobacillus acidophilus (PROBIOTIC ORAL) Take by mouth once daily. 0 Active Comment on above: Take by mouth once d aily. loratadine 10 mg oral capsule (20 sources) Start: 12-02-2019 End: 04-29-2023 take 10 mg by mouth once daily Loratadine Discontinued 10 MG PO daily February 07, 2021 12:38pm January 03, 2022 11:34am Start: 07-13-2017 End: 10-26-2018 take 1 tablet by mouth once daily Loratadine (Allergy Relief (Loratadine)) 10 mg tablet Discontinued 10 MG PO daily July 14, 2017 9:31am October 26, 2018 8:21am Start: 09-02-2016 CLARITIN 10 MG TABS 1 tab daily LORATADINE [id number] Socorro Quiles CNP Start: 05-28-2016 End: 07-08-2016 CLARITIN 10 MG TABS 1 tab da evan LORATADINE [id number] Socorro Quiles [employer] SALES ASSOCIATE Comment on above: Take 10 mg by mouth once daily. magnesium oxide 500 mg oral capsule (4 sources) Start: 01-15-20 End: 07-09-19 take 500 mg by mouth once daily Magnesium Oxide Discontinued 500 MG PO DAILY January 14, 2023 12:00am July 09, 2023 12:40pm MEDICATION, NON-DATABASE (1 source) MEDICATION, NON-DATABASE Take by mouth once daily. Iodine suppliment 0 Active Comment on above: Take by mouth once d aily. Iodine suppliment miSOPROStol 0.2 mg oral tablet (13 sources) Prostaglandin E1 Analog Start: 04-26-20 End: 07-20-19 Misoprostol (Cytotec) 200 mcg tablet Discontinued 200 MCG PO .complex 2 April 26, 2018 1:00am July 19, 2018 9:20am 1 tab the night before and the morning of the procedure montelukast 10 mg oral tablet (20 sources) Leukotriene Receptor Antagonist Start: 08-29-19 End: 02-07-20 take 1 tablet by mouth at bedtime Montelukast (Singulair) 10 mg tablet Discontinued 10 MG PO AT BEDTIME November 07, 2020 9:50am May 03, 2021 3:00pm Start: 05-28-2016 take 1 tablet by suzanne th once daily SINGULAIR 10 MG TABS 1 tab by mouth daily MONTELUKAST SODIUM [id number] Socorro Quiles CNP montelukast sodi um (SINGULAIR ORAL) Take by mouth once daily. 0 Active Comment on above: Take by mouth once d aily. multivitamin ORAL tablet (2 sources) Start: 01-23-20 take 1 tablet by mouth once daily multivitamin ORAL tablet Take 1 tablet by mouth once daily. 0 01/22/2011 Active Comment on above: Take 1 tablet by suzanne th once daily. predniSONE 20 mg oral tablet (8 sources) Corticosteroid Start: 06-01-19 End: 07-09-19 take 60 mg by mouth once daily at mealtime Prednisone Discontinued 60 MG PO daily June 01, 2023 1:00am July 09, 2023 12:41pm administer with food or milk Start: 02-13-2023 End: 04-29-2023 Prednisone Discontinued 10 M G PO daily February 13, 2023 12:00am April 29, 2023 8:22am take 4 tabs for three days, then 3 tabs for three days, then 2 tabs for three days, then 1 tab for 3 days Start: 07-08-2016 End: 07-13-2016 take 3 tablets by mouth once daily PREDNISONE 20 MG TABS Take 3 tablets by mouth daily for 5 days. PREDNISONE [id number] Socorro Quiles FITNESS SALES ASSOCIATE raNITIdine 150 mg oral tablet (17 sources) Histamine-2 Receptor Antagonist Start: 09-30-2017 End: 01-20-2020 take 1 tablet by mouth once daily Ranitidine Hcl (Acid [employer] Principal (Ranitidine)) 150 mg tablet Discontinued 150 MG PO daily September 30, 2017 12:00am January 20, 2020 9:13am Start: 05-28-2016 ACID FIXING MACHINE OPERATOR 1 50 MG TABS PRN for heartburn RANITIDINE HCL [id number] Mayra Thompson LPN riboflavin, vitamin B2, (RIBOFLAVIN ORAL) (1 source) riboflavin, vitamin B2, (RIBOFLAVIN ORAL) Take by mouth once daily. 0 Active Comment on above: Take by mouth once d aily. rizatriptan 10 mg oral tablet (2 sources) Serotonin-1b and Serotonin-1d Receptor Agonist Start: 2010 take 1 tablet by mouth every two hours rizatriptan (MAXALT) 10 mg ORAL tablet Take 1 tablet by mouth. at onset of headache. May repeat after 2 hours. Do not exceed 30 mg per day. 9 tablet 2 02/20/2011 Active Comment on above: Take 1 tablet by suzanne th. at onset of headache. May repeat after 2 hours. Do not exceed 30 mg per day. sulfamethoxazole 800 mg / trimethoprim 160 mg oral tablet (3 sources) Dihydrofolate Reductase Inhibitor Antibacterial, Sulfonamide Antimicrobial Start: 2016 BACTRIM DS 800-160 MG TABS 1 tab twice daily SULFAMETHOXAZOLE-T RIMETHOPRIM [id number] Socorro Quiles CNP triamcinolone acetonide 40 mg/ml injectable suspension (3 sources) Corticosteroid Start: 2017 End: 2017 inject 60 mg by intramuscular injection once Kenalog (triamcinolone acetonide) 40 mg/mL suspension for injection Discontinued 60 MG IM ONCE 1.5 March 12, 2018 2:42pm March 12, 2018 3:41pm Problems Active Problems Problem Classification Problem Date Documented Date Episodic/Chronic Disorders of lipid metabolism (15 sources) Mixed hyperlipidemia; Translations: [Mixed hyperlipidemia] Onset: 01-22-2011 01-22-2011 Chronic Endometriosis (17 sources) Endometriosis (clinical); Translations: [Endometriosis, unspecified] Chronic Esophageal disorders (2 sources) Gastroesophageal reflux disease; Translations: [Gastro-esophageal reflux disease without esophagitis] Onset: 01-22-2011 01-22-2011 Chronic Headache; including migraine (2 sources) Migraine; Translations: [Migraine, unspecified, not intractable, without status migrainosus] Onset: 01-22-2011 01-22-2011 Chronic Other lower respiratory disease (18 sources) Chronic cough; Translations: [Chronic cough] Onset: 05-28-2016 05-28-2016 Episodic Other nutritional; endocrine; and metabolic disorders (13 sources) Body mass index 40+ - severely obese; Translations: [Body mass index (BMI) 40.0-44.9, adult] 03-14-2021 Chronic Other nutritional; endocrine; and metabolic disorders (1 source) Body mass index (BMI) 40.0-44.9, adult; Translations: [Body Mass Index 40.0-44.9, adult] 04-29-2023 Chronic Other screening for suspected conditions (not mental disorders or infectious disease) (13 sources) Patient encounter status; Translations: [Encounter for other screening for genetic and chromosomal anomalies] Onset: 02-05-2023 01-16-2022 Episodic Other upper respiratory disease (4 sources) Allergic rhinitis; Translations: [Allergic rhinitis, unspecified] Onset: 05-28-2016 05-28-2016 Chronic Other upper respiratory disease (2 sources) Seasonal allergy; Translations: [Other seasonal allergic rhinitis] Onset: 01-22-2011 01-22-2011 Chronic Residual codes; unclassified (13 sources) History of endometrial ablation; Translations: [Other specified postprocedural states] 09-30-2017 Episodic Residual codes; unclassified (13 sources) Family history of malignant neoplasm of breast in first degree relative; Translations: [Family history of malignant neoplasm of breast] 01-20-2020 Episodic Residual codes; unclassified (2 sources) Other specified postprocedural states; Translations: [Personal history of other diseases of circulatory system] 01-14-2023 Episodic Thyroid disorders (5 sources) Hypothyroidism; Translations: [Hypothyroidism, unspecified] Onset: 01-22-2011 Chronic Thyroid disorders (15 sources) Thyroid dysfunction; Translations: [Disorder of thyroid, unspecified] 09-30-2017 Episodic Viral infection (13 sources) Disease caused by 2019-nCoV; Translations: [COVID-19] 03-14-2021 Episodic Past or Other Problems Problem Classification Problem Date Documented Da te Episodic/Chronic Fever of unknown origin (1 source) Fever, unspecified; Translations: [Fever, unspecified] Onset: 07-20-2024 Episodic Genitourinary symptoms and ill-defined conditions (1 source) Dysuria; Translations: [Dysuria] Onset: 09-13-2024 Episodic Headache, including migraine (4 sources) Headache; Translations: [Headache] Onset: 10-01-2016 10-01-2016 Episodic Other connective tissue disease (2 sources) Fibromyalgia; Translations: [Fibromyalgia] Onset: 01-22-2011 01-22-2011 Episodic Other connective tissue disease (2 sources) Plantar fascial fibromatosis; Translations: [Plantar fascial fibromatosis] Onset: 03-24-2012 03-24-2012 Episodic Other upper respiratory infections (7 sources) Upper respiratory infection; Translations: [Posterior rhinorrhea] Onset: 05-28-2016 04-06-2017 Episodic Results Test Name Value Interpretation Reference Range Facility Urine Cultureon 09-16-2024 [facility] #2 Below infection level. Urine Culture Escherichia coli [place] Count 25,000-50,000 Streptococcus agalactiae (B) Streptococcus agalactiae (B) Escherichia coli: REACTION Ampicillin Islt MITUL 8 S Ampicillin+Sulbac Islt MITUL <=2 Cefepime Islt MITUL <=0.12 S cefTRIAXone Islt MITUL <=0.25 S Ciprofloxacin Islt MITUL <=0.06 S B-Lactamase Extended Susc Islt NEG Gentamicin Islt MITUL <=1 S levoFLOXacin Islt MITUL <=0.12 S Meropenem Islt MITUL <=0.25 S Nitrofurantoin Islt MITUL <=16 S Pip+Tazo Islt MITUL <=4 S TMP SMX Islt MITUL <=20 S Normal [facility] Comment on above: Performed By: #### L 100.0100, L501.9520, M100.2200, [id number] #### [facility] [address] [place], [address] CBC W/Diff, Automatedon 08-17 Absolute Lymph 2.83 X10 3/uL Normal 0.83-4.51 [facility] Comment on above: Performed By: #### L 100.0100, L501.9520, M100.2200, [id number] #### [facility] [address] [place], [address] Absolute Neut 5.0 X10 3/uL Normal 2.0-7.7 [facility] Comment on above: Performed By: #### L 100.0100, [id number], M100.2200, [id number] #### [facility] [address] [place], [address] Basophils/100 WBC (Bld) 0.9 % Normal 0-1 [facility] Comment on above: Performed By: #### L 100.0100, L501.9520, M100.2200, [id number] #### [facility] [address] [place], [address] Eosinophils/100 WBC (Bld) 2.4 % Normal 0-5 [facility] Comment on above: Performed By: #### L 100.0100, L501.9520, M100.2200, [id number] #### [facility] [address] [place], [address] Erythrocyte distribution width (RBC) [Ratio] 12.2 % Normal 11.6-14.6 [facility] Comment on above: Performed By: #### L 100.0100, L501.9520, M100.2200, [id number] #### [facility] [address] [place], [address] Hematocrit (Bld) [Volume fraction] 40.0 % Normal 37-47 [facility] Comment on above: Performed By: #### L 100.0100, [id number], M100.2200, [id number] #### [facility] [address] [place], [address] Hemoglobin (Bld) [Mass/Vol] 13.5 g/dL Normal 12.0-15.0 [facility] Comment on above: Performed By: #### L 100.0100, L501.9520, M100.2200, [id number] #### [facility] [address] [place], [address] IG% 0.200 Normal 0.0-0.9 [facility] Comment on above: Result Comment: IG% - Immature Granulocytes (promyelocytes, myelocytes and metamyelocytes) > 1% indicates that a LEFT SHIFT is Present. Performed By: #### L 100.0100, L501.9520, M100.2200, [id number] #### [facility] [address] [place], [address] Lymphocytes/100 WBC (Bld) 32.5 % Normal 19-41 [facility] Comment on above: Performed By: #### L 100.0100, L501.9520, M100.2200, L400.0001 #### [facility] [address] [place], [address] MCH (RBC) [Entitic mass] 30.8 pg Normal 27.0-32.0 [facility] Comment on above: Performed By: #### L 100.0100, L501.9520, M100.2200, L400.0001 #### [facility] [address] [place], [address] MCHC (RBC) [Mass/Vol] 33.8 g/dL Normal 32-36 [facility] Comment on above: Performed By: #### L 100.0100, L501.9520, M100.2200, L400.0001 #### [facility] [address] [place], [address] MCV (RBC) [Entitic vol] 91.1 fL Normal 81-99 [facility] Comment on above: Performed By: #### L 100.0100, L501.9520, M100.2200, L400.0001 #### [facility] [address] [place], [address] Monocytes/100 WBC (Bld) 7.1 % Normal 0-10 [facility] Comment on above: Performed By: #### L 100.0100, L501.9520, M100.2200, L400.0001 #### [facility] [address] [place], [address] Neutrophils/100 WBC (Bld) 56.9 % Normal 47-70 [facility] Comment on above: Performed By: #### L 100.0100, L501.9520, M100.2200, L400.0001 #### [facility] [address] [place], [address] Nucleated RBC (Bld) [#/Vol] 0 10*3/uL Normal 0-5 [facility] Comment on above: Performed By: #### L 100.0100, L501.9520, M100.2200, L400.0001 #### [facility] [address] [place], [address] Platelet mean volume (Bld) [Entitic vol] 9.4 fL Normal 6.2-12.0 [facility] Comment on above: Performed By: #### L 100.0100, L501.9520, M100.2200, L400.0001 #### [facility] [address] [place], [address] Platelets (Bld) [#/Vol] 397 10*3/uL Normal 150-450 [facility] Comment on above: Performed By: #### L 100.0100, L501.9520, M100.2200, L400.0001 #### [facility] [address] [place], [address] RBC (Bld) [#/Vol] 4.39 10*6/uL Normal 4.2-5.4 [facility] Comment on above: Performed By: #### L 100.0100, L501.9520, M100.2200, L400.0001 #### [facility] [address] [place], [address] RDW SD 40.7 fl Normal 35.1-43.9 [facility] Comment on above: Performed By: #### L 100.0100, L501.9520, M100.2200, L400.0001 #### [facility] [address] [place], [address] WBC (Bld) [#/Vol] 8.7 10*3/uL Normal 4.4-11.0 [facility] Comment on above: Performed By: #### L 100.0100, L501.9520, M100.2200, L400.0001 #### [facility] [address] [place], [address] Endocrinology Visit Reporton 09-13-2024 Endocrinology Visit Report [facility] [address] [place] [address] OFFICE VISIT Date of Service: 09/13/24 MR#: [id number] Acct: [id number] Name: EMILEE GENAO Rep #: [id number] : 1975 Provider: Harshal Lauren Age/Sex: 49/F [place] [facility] [place]: Signed Intake Vital Signs 09/21/23 13:59 01/19/24 08:50 04/28/24 07:40 09/13/24 13:55 Height 5 ft 6 in 5 ft 6 in 5 ft 6 in 5 ft 6 in Weight: 247 lb 254 lb 2 oz BMI 39.9 41.0 BP 149/82 H 126/79 H Blood Pressure Location Lt brachial Lt brachial Position Sitting Sitting Respiration 20 H Pulse 82 71 Pulse Source Monitor Monitor Temp 97.6 F L Pulse Oximetry (%) 95 95 Oxygen Delivery Method room air room air Intake Visit Reasons: 1 Y FU Chief Complaint: Thyroid Is patient in pain?: No Allergies No Known Allergies Allergy (Verified 09/13/24 13:58) Medications ???Medication ???Instructions ???Recorded ???Confirmed ???Type lactobacillus combination no.4 3 3,000 mmu cells PO DAILY 01/14/23 09/13/24 History billion cell capsule (Probiotic) multivitamin 1 tab PO DAILY 01/14/23 09/13/24 H istory vitamin D3 250 mcg (10,000 1 cap PO DAILY 09/21/23 09/13/24 H istory unit)-vitamin K2 45 mcg capsule loratadine 10 mg capsule 10 mg PO QDAY PRN allergic 4 09/13/24 Rx symptoms #90 caps cyclobenzaprine 10 mg tablet 10 mg PO TID PRN muscle spasm #30 01/19/24 09/13/24 Rx tabs montelukast 10 mg tablet 10 mg PO QHS #90 tabs 02/03/24 Rx (Singulair) venlafaxine 75 mg capsule,extended 75 mg PO QDAY #90 caps 02/03/24 09/13/24 Rx release 24 hr (Effexor XR) ipratropium 0.5 mg-albuterol 3 mg 3 ml inhalation Q4H PRN PRN SOB 1 07/04/23 09/13/24 Rx (2.5 mg base)/3 mL nebulization /OR WHEEZING #180 mL soln Nebulizer machine #1 ea 05/04/24 09/13/24 Rx albuterol sulfate 90 mcg/actuation 2 inh inhalation Q4-6H #8.5 gram s 05/10/24 09/13/24 Rx aerosol inhaler fluticasone furoate 200 1 inh inhalation QDAY #60 ea 06/1609/13/24 Rx mcg-vilanterol 25 mcg/dose inhalation powder (Breo Ellipta) azelastine 137 mcg-fluticasone 50 1 spray intranasal Q12H #23 grams 07/25/24 09/13/24 Rx mcg/spray nasal spray (Dymista) levothyroxine 175 mcg tablet 175 mcg PO DAILY #90 tabs 09/13/24 Rx fluconazole 200 mg tablet 200 mg PO QDAY #2 tabs 09/15/24 R x (Diflucan) phenazopyridine 200 mg tablet 200 mg PO TID PRN pain #6 tabs 06/11 Rx (Pyridium) PFSH Medical History (Updated 09/15/24 @ 10:45 by Ila Izaguirre NP-C) Dysuria Malaise and fatigue Hypothyroidism due to Leydi's thyroiditis Amenorrhea Genetic testing of female Endometriosis Thyroid dysfunction Elevated cholesterol Chronic cough Surgical History History of endometrial ablation Family History Father Cancer Mother Hypertension Thyroid disorder Grandmother Cancer Lung CA Breast cancer Social History Smoking Status: Never smoker second hand exposure: No alcohol intake: current alcohol intake frequency: holidays/special occasions only substance use type: does not use well-balanced diet: other details: Noom caffeine: Yes what type of physical activity do you participate in: none additional social history: Wayne Garza Patient works at [employer] HPI Chief Complaint: Thyroid Details: EMILEE GENAO, is a 49 F who presents to the office today for follow up. She was diagnosed with hypothyroidism at age 17. She is taking levothyroxine 175 mcg daily. TSH today is 0.749 ROS Const Constitutional: No fatigue or weight change ENT ENT: No dizziness/vertigo Cardio Cardiology: No chest pain at rest, chest pain with exertion, shortness of breath or palpitations Skin Skin: No wounds Endo Endocrine: No fatigue or weight change Exam Const General: cooperative, healthy appearing, comfortable, no acute distress, well developed and not cushingoid Nutritional Appearance: well nourished Orientation: alert, awake and oriented x3 HENMT Head: normal to inspection Ears: hearing grossly normal bilaterally Nose: external nose normal Mouth: oral mucosae normal Eyes General: appearance normal, both eyes and all related structures Alignment and Position: alignment normal Periorbital: periorbital findings normal Eyelids: eyelids normal Conjunctivae: conjunctivae normal Neck Neck: normal visual inspection Neck mass: No Thyroid: thyroid normal Lymphatic: no lymphadenopathy noted Chest Chest palpation inspection: normal inspection of the chest Resp Effort Insp (more content not included)... Normal [facility] Thyroid Stim Hormone (TSH)on 09-13-2024 TSH 0.709 uIU/mL Normal 0.300-4.200 [facility] Comment on above: Performed By: #### L 100.0100, L501.9520, M100.2200, L400.0001 #### [facility] [address] [place], [address] Urinalysis, Completeon 09-13 EPI,SQUAMOUS 0-5 SEEN Normal 5-10 [facility] Comment on above: Order Comment: COLLE CTOR TO SPECIFY Performed By: #### L 100.0100, L501.9520, M100.2200, L400.0001 #### [facility] [address] [place], [address] EPI,TRANSITION 0-5 SEEN Normal 0-5 [facility] Comment on above: Order Comment: MARIKA CTOR TO SPECIFY Performed By: #### L 100.0100, L501.9520, M100.2200, L400.0001 #### [facility] [address] [place], [address] RBC 0-5 SEEN Normal 0-5 [facility] Comment on above: Order Comment: MARIKA CTOR TO SPECIFY Performed By: #### L 100.0100, L501.9520, M100.2200, L400.0001 #### [facility] [address] [place], [address] WBC 50-100 SEEN Normal 0-5 [facility] Comment on above: Order Comment: MARIKA CTOR TO SPECIFY Performed By: #### L 100.0100, L501.9520, M100.2200, L400.0001 #### [facility] [address] [place], [address] BACTERIA 0 SEEN Normal None Seen [facility] Comment on above: Order Comment: MARIKA CTOR TO SPECIFY Performed By: #### L 100.0100, L501.9520, M100.2200, L400.0001 #### [facility] [address] [place], [address] Mucus Ql (Urine sed) 0 SEEN Normal [facility] Comment on above: Order Comment: MARIKA CTOR TO SPECIFY Performed By: #### L 100.0100, L501.9520, M100.2200, L400.0001 #### [facility] [address] [place], [address] M100.678on 07-08-2024 SARS-CoV-2 (COVID-19) Ab IA Ql Normal Reference Range = Negative FLUABV+SARS-CoV-2+RS V Pnl Resp MIRA+probe GeneXpert Instrument, PCR method FLUABV+SARS-CoV-2+RS V Pnl Resp MIRA+probe Copy of report sent to Infection Control Printer [id number] 07/08/24 121Sylvia COPELAND. SARS-CoV-2 (COVID 19) Negative INFLUENZA A A Positive A INFLUENZA B Negative RSV PCR Negative INFLUENZAE A Normal [facility] Comment on above: Performed By: #### M 100.678 #### [facility] [address] [place], [place], [address] Pulmonary Visit Reporton Pulmonary Visit Report [facility] [place] [address] [place] [address] OFFICE VISIT Date of Service: 04/28/24 MR#: [id number] Acct: [id number] Name: EMILEE GENAO Rep #: [id number] : 1975 Provider: LUIS EDUARDO Quiles Age/Sex: 48/F [facility] Status: Signed Assessment and Plan Assessment and Plan (1) Cough variant asthma: Status: Chronic Plan: Deteriorated. The patient is typically well-controlled with the use of Breo. However, she does admit that she has not recently been taking it as a daily maintenance medication. She is also currently suffering an exacerbation, started doxycycline yesterday. Started a second prednisone burst yesterday. Today she is experiencing postnasal drainage, hoarse sounding voice and a productive cough. She does admit that symptoms are slightly improved today in comparison to yesterday. No wheezing heard on exam today. Not able to perform a NIOX given that she recently completed a prednisone burst, results would not be reliable. The patient is going to contact us on Thursday with an update. I suspect that symptoms will begin to resolve later today or tomorrow. The patient will be seen in the office for routine 1 year follow-up. She may contact the office with any acute symptoms in the meantime. She is agreeable with this plan. Continue psnj-can-sciublt guaifenesin as needed. Plan Details Follow Up: 9 Months (CSM) HPI 1 Y FU Chief Complaint: Cough HPI Comments Details: This patient presents to the office today follow-up on her asthma. She is ambulatory and currently on room air. She has not recently been seen in the ED or urgent care for respiratory illness. She did contact our office on April 19, 2024 with complaints of upper respiratory symptoms consistent with a cold. She was initially just treated with a prednisone burst. She completed the burst and contacted the office again on April 27, 2024 reporting that symptoms did not improve. At that time she was repeated the prednisone burst and ordered a 10-day course of doxycycline. Currently she is compliant with Singulair daily and loratadine daily. She recently started using Breo 1 puff daily. She does report rinsing her mouth out after each use. She admits that she was under the impression she could be utilizing Breo as needed. She is currently utilizing albuterol HFA every 4 hours. She has been utilizing guaifenesin, has found it helpful to control the cough so she is able to sleep. Currently she has shortness of breath on exertion. She has a cough that is productive of white to yellow-colored sputum, has also occasionally been green. She denies any hemoptysis. She has had wheezing, chest tightness and sinus congestion as well. She has noticed chills but does not have any documented fevers. Symptoms have been ongoing for 1 week. 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 Accompanied by: Self Medications ???Medication ???Instructions ???Recorded ???Confirmed ???Type lactobacillus combination no.4 3 3,000 mmu cells PO DAILY 01/14/23 04/28/24 History billion cell capsule (Probiotic) multivitamin 1 tab PO DAILY 01/14/23 04/28/24 History azelastine 137 mcg-fluticasone 50 1 spray intranasal Q12H #23 grams 04/29/23 04/28/24 Rx mcg/spray nasal spray (Dymista) riboflavin (vitamin B2) 400 mg 400 mg PO DAILY 07/09/23 04/28/24 History tablet Qunol Extra Strenght Magnesium PO PRN 09/21/23 04/28/24 History Glycnate Buffered fluticasone furoate 200 1 inh inhalation QDAY PRN 09/21/23 04/28/24 History mcg-vilanterol 25 mcg/dose inhalation powder (Breo Ellipta) vitamin D3 250 mcg (10,000 1 cap PO DAILY 09/21/23 04/28/24 History unit)-vitamin K2 45 mcg capsule loratadine 10 mg capsule 10 mg PO QDAY PRN allergic 12/09/23 04/28/24 Rx symptoms #90 caps cyclobenzaprine 10 mg tablet 10 mg PO TID PRN muscle spasm #30 01/19/24 04/28/24 Rx tabs montelukast 10 mg tablet 10 mg PO QHS #90 tabs 02/03/24 04/28/24 Rx (Singulair) venlafaxine 75 mg capsule,extended 75 mg PO QDAY #90 caps 02/03/24 04/28/24 Rx release 24 hr (Effexor XR) levothyroxine 175 mcg tablet 175 mcg PO DAILY #90 tabs 02/22/24 04/28/24 Rx doxycycline hyclate 100 mg tablet 100 mg PO BID #20 tabs 04/27/24 04/28/24 Rx prednisone 20 mg tablet 60 mg (3 x 20 mg) PO QDAY 5 days 04/27/24 04/28/24 R (more content not included)... Normal [facility] Car Lubricator Office Visit Reporton 01-19-2024 Car Lubricator Office Visit [facility] [address], [address] [place] [address] OFFICE VISIT Date of Service: 01/19/24 MR#: [id number] Acct: [id number] Name: EMILEE GENAO Rep #: [id number] : 1975 Provider: Dr. 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 Is patient in pain?: No Allergies Penicillins Adverse Reaction (Severe, Verified 01/19/24 08:48) Stomach Cramps Rash Medications ???Medication ???Instructions ???Recorded ???Confirmed ???Type lactobacillus combination no.4 3 3,000 mmu cells PO DAILY 01/14/23 01/19/24 History billion cell capsule (Probiotic) multivitamin 1 tab PO DAILY 01/14/23 01/19/24 History montelukast 10 mg tablet 10 mg PO QHS #90 tabs 02/06/23 01/19/24 Rx (Singulair) azelastine 137 mcg-fluticasone 50 1 spray intranasal Q12H #23 grams 04/29/23 01/19/24 Rx mcg/spray nasal spray (Dymista) riboflavin (vitamin B2) 400 mg 400 mg PO DAILY 07/09/23 01/19/24 History tablet sumatriptan succinate 50 mg tablet See Rx Instructions PO .COMPLEX 07/09/23 01/19/24 History (Imitrex) MiraFiber Gummies 1 tab PO DAILY PRN 09/21/23 01/19/24 History Qunol Extra Strenght Magnesium PO PRN 09/21/23 01/19/24 History Glycnate Buffered [employer] Iodine 250 mg PO DAILY 09/21/23 01/19/24 History fluticasone furoate 200 1 inh inhalation QDAY PRN 09/21/23 01/19/24 History mcg-vilanterol 25 mcg/dose inhalation powder (Breo Ellipta) levothyroxine 175 mcg tablet 175 mcg PO DAILY #90 tabs 09/21/23 01/19/24 Rx vitamin D3 250 mcg (10,000 1 cap PO DAILY 09/21/23 01/19/24 History unit)-vitamin K2 45 mcg capsule loratadine 10 mg capsule 10 mg PO QDAY PRN allergic 12/09/23 01/19/24 Rx symptoms #90 caps cyclobenzaprine 10 mg tablet 10 mg PO TID PRN muscle spasm #30 01/19/24 01/19/24 Rx tabs venlafaxine 37.5 mg 37.5 mg PO DAILY #30 caps 01/19/24 01/19/24 Rx capsule,extended release 24 hr (Effexor XR) Post menopausal: No Patient : No : No PFSH Medical History Malaise and fatigue Hypothyroidism due to Leydi's thyroiditis Amenorrhea Genetic testing of female Endometriosis Thyroid dysfunction Elevated cholesterol Chronic cough Surgical History History of endometrial ablation Family History Father Cancer Mother Hypertension Thyroid disorder Grandmother Cancer Lung CA Breast cancer Social History Smoking Status: Never smoker second hand exposure: No alcohol intake: current alcohol intake frequency: holidays/special occasions only substance use type: does not use well-balanced diet: other details: Noom caffeine: Yes what type of physical activity do you participate in: none additional social history: Wayne Garza Patient works at [employer] History 5 Elective abortions Hx Para 1 Spontaneous abortions Hx # Term Pregnancies Ectopic pregnancies Hx # Pregnancies Multiple births # of living children Past Pregnancies Del. Date Name GA/Weeks Outcome Route Bth Weight Infant Gen Labor Lgth Anesthesia Del [facility] Provider FOB Unknown 2002nah live - full term [place] Unknown Byron lost at HPI Encounter for routine gynecological examination Details: EMILEE GENAO is a 48 year old who presents for annual exam. Last PAP: 2021- normal History of abnormal PAP: no Last mammogram: 11/2023 History of abnormal mammogram: no Colon cancer screening: will discuss with pcp Other preventative health care screenings: followed by pcp doing well on E2 cream c/o weight gain this summer. Female Reproductive History Cycle Length: 21-35 Bleeding Duration: 5 Questions: metorrhagia: No, sexually active: Yes, dyspareunia: No and PCB: No Menopausal Symptoms: No hot flashes, No night sweats, No weight change, No mood changes, No difficulty concentrating, No sleep problems and No change in libido ROS Const Constitutional: Reports as per HPI; Denies fatigue, increased appetite, poor appetite, night sweats, weight gain or weight loss Cardio Card: Denies chest pain Resp Resp: Denies cough or dyspn (more content not included)... Normal [facility] Serum or plasma thyroid stim ulating hormone (TSH) measurement (units/volume)Ordered By: Mckayla Davis on 07-22-2023 TSH Qn 0.65 uIU/mL 0.358-3.74 [facility] 24 hour urine creatinine danae surement (mass/time)Ordered By: Mckayla Davis on 04-07-2023 Creatinine (24H U) [Mass/Time] 1.68 g/24 HR 0.70-1.90 [facility] 24 hour urine free cortisol measurement (mass/time)Ordered By: Mckayla Davis on 04-07-2023 Cortisol Free (24H U) [Mass/Time] 25 ug/24 hr 6-42 [facility] Comment on above: Performed at: [address] [id number] Director: Deena Rincon MD, Phone: [phone] Laboratory - Specimen inform ationOrdered By: Mckayla Davis on 04-07-2023 Collection duration (U) 24.0 HOURS 24.0-24.0 [facility] Quantitative urine free emerson isol measurement (mass/volume)Ordered By: Mckayla Davis on 04-07-2023 Cortisol Free (U) [Mass/Vol] 10 ug/L Undefined [facility] Urine creatinine measurement (mass/volume)Ordered By: Mckayla Davis on 04-07-2023 Creatinine (U) [Mass/Vol] 67.10 mg/dL NO RANGE EST. [facility] Urine volume measurementOrde red By: Mckayla Davis on 04-07-2023 Specimen volume (U) 2.50 L [facility] Basophil percentageOrdered B y: Mckayla Davis on 03-31-2023 Bilirubin [Mass/Vol] 0.40 mg/dL 0.20-1.00 [facility] Comment on above: For patients on eltr ombopag therapy, use of Dimension [place] TBIL is not recommended. Chloride [Moles/Vol] 107 mmol/L 98-107 [facility] Glucose [Mass/Vol] 92 mg/dL 74-106 [facility] Potassium [Moles/Vol] 3.9 mmol/L 3.5-5.1 [facility] Protein [Mass/Vol] 6.9 g/dL 6.4-8.2 [facility] Sodium [Moles/Vol] 140 mmol/L 136-145 [facility] Testosterone [Mass/Vol] 10 ng/dL 4-50 [facility] Free testosterone percentage Ordered By: Mckayla Davis on 03-31-2023 Testosterone Free/Testosterone.tota l [Mass fraction] 1.64 % 0.50-2.80 [facility] Comment on above: Performed at: [employer] [facility] [employer] [address] [id number] Director: Cl Mary PhD, Phone: [phone] at: [facility] [address] [id number] Director: Deena Rincon MD, Phone: [phone] Laboratory - Chemistry and C hemistry - challengeOrdered By: Mckayla Davis on 03-31-2023 ALP [Catalytic activity/Vol] 100 U/L 45-117 [facility] ALT [Catalytic activity/Vol] 23 U/L 13-56 [facility] CO2 [Moles/Vol] 26.0 mmol/L 21.0-32.0 [facility] Free T4 [Mass/Vol] 1.36 ng/dL 0.76-1.46 [facility] Globulin (S) [Mass/Vol] 3.3 g/dL 2.2-4.2 [facility] Urea nitrogen/Creatinine [Mass ratio] 17.9 mg/mg 10-20 [facility] No Panel InformationOrdered By: Mckayla Davis on 03-31-2023 Estimated GFR (MDRD) Amer 110 mL/min >60 [facility] Comment on above: GFR Calc Estimated GFR (MDRD) Non-Af Amer 91 mL/min >60 [facility] Comment on above: Non- GFR Calc Free Triiodothyronine (T3) pg/dL 2.5 pg/mL 2.18-3.98 [facility] Insulin Level 10.8 mU/L 2.6-37.6 [facility] Thyroid Stimulating Hormone (TSH) 0.60 uIU/mL 0.358-3.74 [facility] Serum or plasma albumin dylon urement (mass/volume)Ordered By: Mckayla Davis on 03-31-2023 Albumin [Mass/Vol] 3.6 g/dL 3.2-5.0 [facility] Serum or plasma albumin/glob ulin mass ratioOrdered By: Mckaylamary kate Davis on 03-31-2023 Albumin/Globulin [Mass ratio] 1.1 {ratio} 0.9-2.4 [facility] Serum or plasma calcium dylon urement (mass/volume)Ordered By: Mckayla Davis on 03-31-2023 Calcium [Mass/Vol] 8.5 mg/dL 8.5-10.1 [facility] Serum or plasma creatinine m easurement (mass/volume)Ordered By: Mckayla Davis on 03-31-2023 Creatinine [Mass/Vol] 0.73 mg/dL 0.55-1.02 [facility] Comment on above: The validity of the calculated GFR & GFRAA in patients over 70 years has not been determined. Clinical correlation is essential. Serum or plasma testosterone free measurement (mass/volume)Ordered By: Mckayla Davis on 03-31-2023 Testosterone Free [Mass/Vol] 0.16 ng/dL 0.10-0.85 [facility] Serum or plasma urea nitroge n measurement (mass/volume)Ordered By: Mckayla Davis on 03-31-2023 Urea nitrogen [Mass/Vol] 13 mg/dL 7-18 [facility] Thin prep Papanicolaou smear with manual screeningOrdered By: Mckayla Davis on 03-31-2023 Thin prep Papanicolaou smear with manual screening 12 U/L 15-37 [facility] Thin prep Papanicolaou smear with manual screening 7 5-15 [facility] ANES POSTPROC EVALon 023 ANES POSTPROC EVAL HNO ID: [id number] Author: Linda Su MD Service: Anesthesiology Author Type: Physician Type: Anesthesia Postprocedure Evaluation Filed: 03/19/2023 11:32 AM Note Text: POST ANESTHESIA EVALUATION NOTE : 1975 Procedure Summary Date: 03/19/23 Room / Location: [facility] SURGERY Anesthesia Start: 1058 Anesthesia Stop: Procedure: COLONOSCOPY SCREENING Diagnosis: Special screening for malignant neoplasms, colon Special screening for malignant neoplasms, colon Scheduled Providers: Shahida Dumas MD; Linda Su MD Responsible Provider: Linda Su MD Anesthesia Type: MAC ASA Status: 2 Anesthesia Type: MAC Last Vitals Vitals Value Taken Time BP 98/53 03/19/23 1130 Temp 97.2 03/19/23 1132 Pulse 79 03/19/23 1130 Resp 20 03/19/23 1130 SpO2 100 % 03/19/23 1130 Vitals shown include unvalidated device data. Post Anesthesia Patient Status Patient Evaluation: bedside. Anticipated Disposition: phase 2 then home. Neurological Status: aware and responsive. Pulmonary Status: breathing comfortably on room air Airway Control: returned to baseline unsupported. Cardiovascular Status: stable. Pain Management: clinically adequate Postoperative Hydration: acceptable. Intraoperative Events: no significant anesthesia events Post Operative Nausea/Vomiting Status: no significant post operative nausea or vomiting Recommendation: continue current plan of care. Anesthesia Observations No Documentation SIGNATURE: Linda Su MD PATIENT NAME: Emilee Genao DATE: March 19, 2023 TIME: 11:32 AM CSN: [id number] [facility] ANES PRE-OPon 03-19-2023 ANES PRE-OP HNO ID: [id number] Author: Linda Su MD Service: Anesthesiology Author Type: Physician Type: Anesthesia Preprocedure Evaluation Filed: 03/19/2023 10:57 AM Note Text: ANESTHESIOLOGY DAY OF SURGERY NOTE : 1975 Procedure Information Date/Time: 03/19/23 1115 Scheduled providers: Shahida Dumas MD; Linda Su MD Procedure: COLONOSCOPY SCREENING Location: LD SURGERY Estimated body mass index is 38.74 kg/m? as calculated from the following: Height as of 03/11/23: 167.6 cm (5' 6). Weight as of 03/11/23: 108.9 kg (240 lb). Most recent hematocrit and potassium results: No results found for this basename: HCT,HEMATOCRIT,K,POT ASSIUM Relevant Problems CARDIO (+) Migraine ENDO (+) Hypothyroidism GI (+) GERD (gastroesophageal reflux disease) NEURO-PSYCH (+) Migraine I - PHYSICAL EVALUATION AIRWAY Patient intubated: No. Tracheostomy tube not present Mallampati: I. TM distance: >3 FB. Neck ROM: full ROM without neurological symptoms. Mouth opening: adequate. Short neck: yes. Thick neck: yes Alba present: no Microretrognathia/Mi cronagthia/Recessed Chin: No DENTAL Dental findings: teeth intact. Additional exam findings: yes. CARDIOVASCULAR Normal cardiovascular observations. PULMONARY Normal pulmonary observations. II - ANESTHESIA PLAN ASA Score: 2 Anesthetic Plan: MAC The patient is not a current smoker. NPO Status: adequate Beta Evaristo Monitoring Plan Monitoring plan: standard ASA. Post Procedure Analgesic Plan Postoperative analgesic plan: parenteral or oral opioids. Informed Consent Anesthetic risks, benefits, alternatives, personnel and consent discussed: yes. Patient / Responsible Libertarian agrees to proceed: yes Patient / Surrogate agrees to blood products: Yes DNR status not reviewed with patient and/or family prior to surgery. Significant changes in the patient condition since the History and Physical, not otherwise documented in primary service progress note: no. Potential Anesthesia issues that may suggest increased risk of complications or contraindication to planned procedure: none. Vitals Value Taken Time BP 129/76 03/19/23 1034 Pulse 78 03/19/23 1034 Resp 9 03/19/23 1034 Temp 36.2 ?C (97.1 ?F) 03/19/23 1034 SpO2 97 % 03/19/23 1034 Facility-Administere d Medications as of 03/19/2023 Medication Dose Route Frequency - lidocaine (PF) 10 mg/mL (1 %) 1-2 mg injection (XYLOCAINE) 0.1-0.2 mL INTRADERMAL PRN - lactated ringers iv infusion 75 mL/hr INTRAVENOUS CONTINUOUS Outpatient Medications as of 03/19/2023 Medication Sig - montelukast sodium (SINGULAIR ORAL) Take by mouth once daily. - loratadine (CLARITIN) 10 mg tablet Take 10 mg by mouth once daily. - levothyroxine (SYNTHROID) 175 mcg tablet Take 1 tablet by mouth once daily. - azelastine/fluticaso ne (DYMISTA NASAL) Use in the nose once daily. - Lactobacillus acidophilus (PROBIOTIC ORAL) Take by mouth once daily. - riboflavin, vitamin B2, (RIBOFLAVIN ORAL) Take by mouth once daily. - cholecalciferol, vitamin D3, (VITAMIN D3 ORAL) Take by mouth once daily. - inulin (FIBER GUMMIES ORAL) Take by mouth once daily. - MEDICATION, NON-DATABASE Take by mouth once daily. Iodine suppliment - rizatriptan (MAXALT) 10 mg ORAL tablet Take 1 tablet by mouth. at onset of headache. May repeat after 2 hours. Do not exceed 30 mg per day. - multivitamin ORAL tablet Take 1 tablet by mouth once daily. I have interviewed and examined the patient. I have reviewed the medical record and/or the pre-anesthesia evaluation, pertinent labs, and test results. This contains updated information obtained within 48 hours of Surgery/Procedure. SIGNATURE: Linda Su MD PATIENT NAME: Emilee Genao DATE: March 19, 2023 TIME: 10:52 AM CSN: [id number] [facility] BRIEF OP NOTon 03-19-2023 BRIEF OP NOT HNO ID: [id number] Author: Shahida Dumas MD Service: General Surgery Author Type: Physician Type: Brief Op Note Filed: 03/19/2023 11:28 AM Note Text: BRIEF OPERATIVE NOTE SURGERY DATE: 03/19/2023 Incision/Procedure Start Time: 11:05 cecal intubation time: 11:08 Incision Close/Procedure End Time: 11:24 Surgeon(s)/Procedura list(s) and Director Of Loss Prevention(s): Piter Procedures: Colonoscopy - screening Anesthesia: MAC Findings: diverticulosis, hemorrhoids Estimated Blood Loss: 0 ml Specimens: None Complications: None Closure Technique: na Preop Diagnosis: screening for colon cancer, no previous Postop Diagnosis: diverticulosis, hemorrhoids SIGNATURE: Shahida Dumas MD PATIENT NAME: Emilee Genao DATE: March 19, 2023 TIME: 11:26 AM Acct: [id number] Normal [facility] HCG Preg Ur Qlon 03-19-2023 HCG ( test) Ql (U) Negative Normal Negative [facility] Comment on above: Order Comment: Speci men Type: URINE SPECIMEN Ordering Facility: [facility] Address: [place] [address] Result Comment: This test is intended to aid in the early detection of . Very dilute urine samples, as indicated by a low specific gravity, may not contain operations support representative levels of hCG. This test detects intact hCG only. This test does not reliably detect hCG degradation products, including free-beta subunit and beta-core fragment. Therefore, this test may show reduced reactivity in urine after 8 weeks gestation. A number of conditions other than , including trophoblastic disease and certain non-trophoblastic neoplasms cause elevated levels of hCG. As with any assay employing mouse antibodies, the possibility exists for interference by human anti-mouse antibodies (HAMA) in the specimen. The test provides a presumptive diagnosis for . Performed By: #### 2 [id number] #### [facility] CLIA [id number] [address] [place] [address] OF [facility] HISTORY PHYSICALon 3 HISTORY PHYSICAL HNO ID: [id number] Author: Shahida Dumas MD Service: General Surgery Author Type: Physician Type: HANDP Filed: 03/19/2023 10:19 AM Note Text: HISTORY AND PHYSICAL Emilee Genao 1975 REFERRING PHYSICIAN: No ref. provider found CHIEF COMPLAINT: Consult (Colonoscopy, no prior colonoscopy, pcp referral/) HPI: The patient is a 47 year old female referred for endoscopy. Emilee notes no colon complaints currently. NOTES several [...] The patient notes no upper GI complaints. Emilee has not undergone prior endoscopy. PAST MEDICAL HISTORY Diagnosis Date Diverticulitis Fibromyalgia GERD (gastroesophageal reflux disease) Hypothyroidism PAST SURGICAL HISTORY Procedure Laterality Date PAST SURGICAL HISTORY OF 05/18/2010 Ablation, tubal ([facility]) PAST SURGICAL HISTORY OF 05/18/2002 PAST SURGICAL [...] tablet by mouth once daily. No current facility-administere d medications for this visit. ALLERGIES: Penicillins PERSONAL [...] entered by the nurse and reviewed by sd Nursing Notes: Zamzam Bhatt LPN 02/05/2023 3:06 [...] Neurologic: The patient denies a history of epilepsy/convulsions , notes headaches, denies head/spinal injuries, and denies [...] the PFSH and ROS obtained by others. Shea Hyde PA-C PHYSICAL EXAMINATION: General: The patient is 47 year old female, well nourished, well hydrated in no acute distress. The patient is oriented to time, place, and person. VITALS: Blood pressure 118/76, pulse 82, temperature 36.6 ?C (97.9 ?F), heig (more content not included)... Normal [facility] OPERATIVE NOon 03-19-2023 OPERATIVE NO HNO ID: [id number] Author: Shahida Dumas MD Service: General Surgery Author Type: Physician Type: Operative Report Filed: 03/20/2023 9:13 AM Note Text: [facility] - Operative Report - [place] : 1975 AGE: 47. SEX: F PATIENT TYPE: O HOSP SVC: GNS LOCATION: [facility] [place] ATTENDING PHYSICIAN: Shahida Dumas MD CSN NUMBER: [id number] DATE OF SURGERY/PROCEDURE: 03/19/2023 INCISION/PROCEDURE START TIME: 1105 INCISION CLOSE/PROCEDURE END TIME: 1124 PREOPERATIVE DIAGNOSIS: Screening for colon cancer. POSTOPERATIVE DIAGNOSIS: Diverticulosis and hemorrhoids. SURGEON: Shahida Dumas MD SQUARE SHEAR OPERATOR: No Additional Staff SURGERY/PROCEDURE: Screening colonoscopy. ANESTHESIA: MAC. LOCATION: [facility]. INDICATIONS: Emilee Genao is a 47-year-old female who presents for her 1st screening colonoscopy. She has been counseled of the risks of procedure including, but not limited to infection, bleeding, perforation, GI tract, inability to complete the procedure, etc. She understands and agrees to proceed. DESCRIPTION OF PROCEDURE: After informed consent was given, the patient was brought to the endoscopy suite. Appropriate time-out protocol was followed. The patient was then placed in left lateral decubitus position. She was given IV anesthesia by the Anesthesia provider. The endoscope was lubricated and carefully inserted into the patient's anus and advanced into the rectum, it was then advanced into the sigmoid colon, then the left colon, past the splenic flexure into transverse colon, past the hepatic flexure down the right colon to the cecum. The cecum was identified by confluence of teniae coli, identification of ileocecal valve, appendiceal orifice and external palpation. At this level, the colonoscope was slowly retracted back and entire colonic mucosal surface was examined. The colon cleansing preparation was adequate. There was no evidence of any masses, polyps, or lesions in the right colon. There was no evidence of any masses, polyps, or lesions in the transverse colon. There was no evidence of any masses, polyps, or lesions in the left colon. In the sigmoid colon, patient had multiple small and large diverticula. Otherwise, there was no evidence of any masses or polyps or mucosal abnormalities. In the patient's rectum, there was no evidence of any masses or polyps. Retroflexed view in the rectum revealed hemorrhoidal changes, but no active inflammation or bleeding. The endoscope was removed intact. Digital examination of the anal canal revealed no palpable masses. The patient tolerated the procedure well and was brought to recovery room in stable condition. ESTIMATED BLOOD LOSS: None. SPECIMENS: None. COMPLICATIONS: None. RECOMMENDATIONS: Screening colonoscopy in 10 years. Shahida Dumas MD LW:[id number] /[id number] Normal [facility] NURSING PROGon 03-11-2023 NURSING PROG HNO ID: [id number] Author: Estrellita Velazquez, RN Service: ? Author Type: Registered Nurse Type: Nursing Progress Note Filed: 03/11/2023 9:41 AM Note Text: Pre-Procedure Checklist Emilee Kylie [phone] (home) 1975 47 year old Body mass index is 38.74 kg/m?. Wt 240 lb ht 5f 6in Allergies: Penicillins Hives Procedure: colonoscopy Date of Procedure: 03/19/23 Smoke: No Alcohol: Yes Street Drugs: No Diabetic: No Insulin: No Problems with Anesthesia (Self or Family?) No Trigonometry Teacher: None Saw operating room assistant in the last 6 months? No Recent EKG/Cardiac Testing: No Chest pain in the last 6 months (<6 months cardiac clearance needed): No History of: Heart Attack/Stroke/Blood Clot?: patient denies Shortness of Breath: No Asthma:No- hx bronchitis Inhalers: Yes Any Outstanding Consults?: No If yes, list: N/A Additional Notes:Pre-op urine HCG needed Normal [facility] CNOVon 02-05-2023 CNOV Office Visit (GENSWS) EMILEE GENAO ([id number]) 1975 F [facility] Date Time Provider Department 02/05/23 3:00 PM SHEA HYDE During your visit today, we recorded the following information about you: Temperature Pulse Blood pressure Weight 97.9 degrees 82/minute 118/76 108.9 kg Height 1.676 m Shea Hyde PA-C 02/17/2023 12:38 PM Signed HISTORY AND PHYSICAL Emilee Genao 1975 REFERRING PHYSICIAN: No ref. provider found CHIEF COMPLAINT: Consult (Colonoscopy, no prior colonoscopy, pcp referral/) HPI: The patient is a 47 year old female referred for endoscopy. Emilee notes no colon complaints currently. NOTES several [...] The patient notes no upper GI complaints. Emilee has not undergone prior endoscopy. PAST MEDICAL HISTORY Diagnosis Date Diverticulitis Fibromyalgia GERD (gastroesophageal reflux disease) Hypothyroidism PAST SURGICAL HISTORY Procedure Laterality Date PAST SURGICAL HISTORY OF 05/18/2010 Ablation, tubal ([facility]) PAST SURGICAL HISTORY OF 05/18/2002 PAST SURGICAL [...] tablet by mouth once daily. No current facility-administere d medications for this visit. ALLERGIES: Penicillins PERSONAL [...] entered by the nurse and reviewed by sd Nursing Notes: Zamzam BhattLEIGHANN 02/05/2023 3:06 PM Signed REVIEW OF SYSTEMS: [...] Neurologic: The patient denies a history of epilepsy/convulsions , notes headaches, denies head/spinal injuries, and denies [...] the PFSH and ROS obtained by others. (more content not included)... [facility] Basophil percentageOrdered B y: Fransico Kennedy on 02-02-2023 Bilirubin [Mass/Vol] 0.20 mg/dL 0.20-1.00 [facility] Comment on above: For patients on eltr ombopag therapy, use of Dimension [place] TBIL is not recommended. Chloride [Moles/Vol] 108 mmol/L 98-107 [facility] Glucose [Mass/Vol] 97 mg/dL 74-106 [facility] Potassium [Moles/Vol] 3.9 mmol/L 3.5-5.1 [facility] Protein [Mass/Vol] 7.4 g/dL 6.4-8.2 [facility] Sodium [Moles/Vol] 140 mmol/L 136-145 [facility] WBC (Bld) [#/Vol] 8.6 10*3/uL 4.4-11.0 [facility] Blood erythrocytes count (nu mber/volume)Ordered By: Fransico Kennedy on 02-02-2023 RBC (Bld) [#/Vol] 4.51 10*6/uL 4.2-5.4 [facility] Blood hemoglobin measurement (mass/volume)Ordered By: Fransico Kennedy on 02-02-2023 Hemoglobin (Bld) [Mass/Vol] 13.3 g/dL 12.0-15.0 [facility] Blood platelet mean volumeOr dered By: Fransico Kennedy on 02-02-2023 Platelet mean volume (Bld) [Entitic vol] 9.6 fL 6.2-12.0 [facility] Determination of erythrocyte mean corpuscular volume (MCV)Ordered By: Fransico Kennedy on 02-02-2023 MCV (RBC) [Entitic vol] 91.6 fL 81-99 [facility] Erythrocyte sedimentation ra teOrdered By: Fransico Kennedy on 02-02-2023 ESR (Bld) [Velocity] 19 mm/h 0-30 [facility] Hematocrit Auto (Bld) [Volum e fraction]Ordered By: Fransico Kennedy on 02-02-2023 Hematocrit (Bld) [Volume fraction] 41.3 % 37-47 [facility] Iron measurement (mass/mass) Ordered By: Fransico Kennedy on 02-02-2023 Iron (Unsp spec) [Mass/Mass] 53 ug/dL 50-170 [facility] Laboratory - Chemistry and C hemistry - challengeOrdered By: Fransico Kennedy on 02-02-2023 ALP [Catalytic activity/Vol] 109 U/L 45-117 [facility] ALT [Catalytic activity/Vol] 29 U/L 13-56 [facility] CO2 [Moles/Vol] 25.0 mmol/L 21.0-32.0 [facility] Free T4 [Mass/Vol] 1.16 ng/dL 0.76-1.46 [facility] Globulin (S) [Mass/Vol] 3.6 g/dL 2.2-4.2 [facility] Urea nitrogen/Creatinine [Mass ratio] 13.4 mg/mg 10-20 [facility] - Hematology and Cell countsOrdered By: Fransico Kennedy on 02-02-2023 Erythrocyte distribution width (RBC) [Entitic vol] 41.7 fL 35.1-43.9 [facility] Erythrocyte distribution width (RBC) [Ratio] 12.5 % 11.6-14.6 [facility] MCH (RBC) [Entitic mass] 29.5 pg 27.0-32.0 [facility] MCHC Auto (RBC) [Mass/Vol]Or dered By: Fransico Kennedy on 02-02-2023 MCHC (RBC) [Mass/Vol] 32.2 g/dL 32-36 [facility] No Panel InformationOrdered By: Fransico Kennedy on 02-02-2023 Estimated GFR (MDRD) Amer 121 mL/min >60 [facility] Comment on above: GFR Calc Estimated GFR (MDRD) Non-Af Amer 100 mL/min >60 [facility] Comment on above: Non- GFR Calc Free Triiodothyronine (T3) pg/dL 2.2 pg/mL 2.18-3.98 [facility] Thyroid Stimulating Hormone (TSH) 1.45 uIU/mL 0.358-3.74 [facility] Vitamin D 25-Hydroxy 49.2 ng/mL [facility] Comment on above: Vitamin D 25(OH) Sta tus Range Deficiency <20 ng/mL (50nmol/L) Insufficiency 20 - 30 ng/mL (50 - 75 nmol/L) Sufficiency 30 - 100 ng/mL (75 - 250 nmol/L) Toxicity >100 ng/mL (>250 nmol/L) Platelets bldOrdered By: Alyce Kennedy on 02-02-2023 Platelets (Bld) [#/Vol] 422 10*3/uL 150-450 [facility] Serum or plasma C reactive p rotein measurement (mass/volume)Ordered By: Fransico Kennedy on 02-02-2023 CRP [Mass/Vol] 9.06 mg/L 0.0-3.0 [facility] Comment on above: C-Reactive Protein ( CRP) provides useful information for thediagnosis, therapy and monitoring of inflammatory processesand associated diseases. For the evaluation of Relative Riskfor Cardiovascular Disease, a High Sensitivity CRP (HSCRP)should be ordered. Serum or plasma albumin dylon urement (mass/volume)Ordered By: Fransico Kennedy on 02-02-2023 Albumin [Mass/Vol] 3.8 g/dL 3.2-5.0 [facility] Serum or plasma albumin/glob ulin mass ratioOrdered By: Fransico Kennedy on 02-02-2023 Albumin/Globulin [Mass ratio] 1.1 {ratio} 0.9-2.4 [facility] Serum or plasma calcium dylon urement (mass/volume)Ordered By: Fransico Kennedy on 02-02-2023 Calcium [Mass/Vol] 8.9 mg/dL 8.5-10.1 [facility] Serum or plasma cortisol danae surement (mass/volume)Ordered By: Fransico Kennedy on 02-02-2023 Cortisol [Mass/Vol] 5.40 ug/dL 3.44-22.45 [facility] Comment on above: Adult (AM) 5.27 - 22 .45 ug/dL Adult (PM) 3.44 - 16.76 ug/dLPlease note revised CORTISOL reference range effective 2019. Serum or plasma creatinine m easurement (mass/volume)Ordered By: Fransico Kennedy on 02-02-2023 Creatinine [Mass/Vol] 0.67 mg/dL 0.55-1.02 [facility] Comment on above: The validity of the calculated GFR & GFRAA in patients over 70 years has not been determined. Clinical correlation is essential. Serum or plasma ferritin danae surement (mass/volume)Ordered By: Fransico Kennedy on 02-02-2023 Ferritin [Mass/Vol] 52 ng/mL 8- [facility] Serum or plasma urea nitroge n measurement (mass/volume)Ordered By: Fransico Kennedy on 02-02-2023 Urea nitrogen [Mass/Vol] 9 mg/dL 7-18 [facility] Thin prep Papanicolaou smear with manual screeningOrdered By: Fransico Kennedy on 02-02-2023 Thin prep Papanicolaou smear with manual screening 12 U/L 15-37 [facility] Thin prep Papanicolaou smear with manual screening 7 5-15 [facility] Laboratory - Chemistry and C hemistry - challengeOrdered By: Sharron Cooper on 01-05-2023 T4 [Mass/Vol] 11.0 ug/dL 4.8-13.9 [facility] No Panel InformationOrdered By: Sharron Cooper on 01-05-2023 Free Triiodothyronine (T3) pg/dL 2.0 pg/mL 2.18-3.98 [facility] Thyroid Stimulating Hormone (TSH) 0.76 uIU/mL 0.358-3.74 [facility] Basophil percentageOrdered B y: Sharron Cooper on 11-21-2022 Cholesterol [Mass/Vol] 219 mg/dL <200 [facility] Comment on above: <200 mg/dL Desirable 200-240 mg/dL Borderline >240 mg/dL High Risk Triglyceride [Mass/Vol] 190 mg/dL <199 [facility] Comment on above: The drugs N-Acetylcy steine and Metamizole may falsely depress this assay.Serum Triglycerides Reference Interval Normal <150 mg/dL Borderline high 150 - 199 mg/dL High 200 - 499 mg/dL Very High > or = 500 mg/dL Laboratory - Chemistry and C hemistry - challengeOrdered By: Sharron Cooper on 11-21-2022 Free T4 [Mass/Vol] 1.73 ng/dL 0.76-1.46 [facility] No Panel InformationOrdered By: Sharron Cooper on 11-21-2022 Free Triiodothyronine (T3) pg/dL 3.0 pg/mL 2.18-3.98 [facility] Thyroid Stimulating Hormone (TSH) 0.03 uIU/mL 0.358-3.74 [facility] Serum or plasma cholesterol in HDL measurement (mass/volume)Ordered By: Sharron Cooper on 11-21-2022 Cholesterol in HDL [Mass/Vol] 46 mg/dL >40 [facility] Comment on above: The drugs N-Acetylcy steine and Metamizole may falsely depress this assay. Reference Range HDL <40 mg/dL Low HDL Cholesterol HDL >or= 60 mg/dL High HDL Cholesterol Serum or plasma cholesterol in VLDL measurement (mass/volume)Ordered By: Sharron Cooper on 11-21-2022 Cholesterol in VLDL [Mass/Vol] 38 mg/dL 5-40 [facility] Serum or plasma low density lipoprotein (LDL) cholesterol measurement (mass/volume)Ordered By: Sharron Cooper on 11-21-2022 Cholesterol in LDL [Mass/Vol] 135 mg/dL 0-130 [facility] Basophil percentageOrdered B y: Sharron Cooper on 08-20-2022 Bilirubin [Mass/Vol] 0.40 mg/dL 0.20-1.00 [facility] Comment on above: For patients on eltr ombopag therapy, use of Dimension [place] TBIL is not recommended. Chloride [Moles/Vol] 106 mmol/L 98-107 [facility] Cholesterol [Mass/Vol] 275 mg/dL <200 [facility] Comment on above: <200 mg/dL Desirable 200-240 mg/dL Borderline >240 mg/dL High Risk Glucose [Mass/Vol] 94 mg/dL 74-106 [facility] Potassium [Moles/Vol] 3.9 mmol/L 3.5-5.1 [facility] Protein [Mass/Vol] 7.3 g/dL 6.4-8.2 [facility] Sodium [Moles/Vol] 139 mmol/L 136-145 [facility] Triglyceride [Mass/Vol] 183 mg/dL <199 [facility] Comment on above: The drugs N-Acetylcy steine and Metamizole may falsely depress this assay.Serum Triglycerides Reference Interval Normal <150 mg/dL Borderline high 150 - 199 mg/dL High 200 - 499 mg/dL Very High > or = 500 mg/dL WBC (Bld) [#/Vol] 8.8 10*3/uL 4.4-11.0 [facility] Blood erythrocytes count (nu mber/volume)Ordered By: Sharron Cooper on 08-20-2022 RBC (Bld) [#/Vol] 4.44 10*6/uL 4.2-5.4 [facility] Blood hemoglobin measurement (mass/volume)Ordered By: Sharron Cooper on 08-20-2022 Hemoglobin (Bld) [Mass/Vol] 13.6 g/dL 12.0-15.0 [facility] Blood platelet mean volumeOr dered By: Sharron Cooper on 08-20-2022 Platelet mean volume (Bld) [Entitic vol] 9.5 fL 6.2-12.0 [facility] Determination of erythrocyte mean corpuscular volume (MCV)Ordered By: Sharron Cooper on 08-20-2022 MCV (RBC) [Entitic vol] 91.9 fL 81-99 [facility] Hematocrit Auto (Bld) [Volum e fraction]Ordered By: Sharron Cooper on 08-20-2022 Hematocrit (Bld) [Volume fraction] 40.8 % 37-47 [facility] Laboratory - Chemistry and C hemistry - challengeOrdered By: Sharron Cooper on 08-20-2022 ALP [Catalytic activity/Vol] 99 U/L 45-117 [facility] ALT [Catalytic activity/Vol] 38 U/L 13-56 [facility] CO2 [Moles/Vol] 25.0 mmol/L 21.0-32.0 [facility] Cobalamin (Vitamin B12) [Mass/Vol] 732 pg/mL 211-911 [facility] Globulin (S) [Mass/Vol] 3.6 g/dL 2.2-4.2 [facility] Magnesium [Mass/Vol] 2.2 mg/dL 1.6-2.6 [facility] T4 [Mass/Vol] 12.2 ug/dL 4.8-13.9 [facility] Urea nitrogen/Creatinine [Mass ratio] 16.5 mg/mg 10-20 [facility] - Hematology and Cell countsOrdered By: Sharron Cooper on 08-20-2022 Erythrocyte distribution width (RBC) [Entitic vol] 42.2 fL 35.1-43.9 [facility] Erythrocyte distribution width (RBC) [Ratio] 12.5 % 11.6-14.6 [facility] MCH (RBC) [Entitic mass] 30.6 pg 27.0-32.0 [facility] MCHC Auto (RBC) [Mass/Vol]Or dered By: Sharron Cooper on 08-20-2022 MCHC (RBC) [Mass/Vol] 33.3 g/dL 32-36 [facility] No Panel InformationOrdered By: Sharron Cooper on 08-20-2022 Estimated GFR (MDRD) Amer 110 mL/min >60 [facility] Comment on above: GFR Calc Estimated GFR (MDRD) Non-Af Amer 91 mL/min >60 [facility] Comment on above: Non- GFR Calc Free Triiodothyronine (T3) pg/dL 2.4 pg/mL 2.18-3.98 [facility] Thyroid Stimulating Hormone (TSH) 3.80 uIU/mL 0.358-3.74 [facility] Vitamin D 25-Hydroxy 33.2 ng/mL [facility] Comment on above: Vitamin D 25(OH) Sta tus Range Deficiency <20 ng/mL (50nmol/L) Insufficiency 20 - 30 ng/mL (50 - 75 nmol/L) Sufficiency 30 - 100 ng/mL (75 - 250 nmol/L) Toxicity >100 ng/mL (>250 nmol/L) Platelets bldOrdered By: Darnell Cooper on 08-20-2022 Platelets (Bld) [#/Vol] 380 10*3/uL 150-450 [facility] Serum or plasma albumin dylon urement (mass/volume)Ordered By: Sharron Cooper on 08-20-2022 Albumin [Mass/Vol] 3.7 g/dL 3.2-5.0 [facility] Serum or plasma albumin/glob ulin mass ratioOrdered By: Sharron Cooper on 08-20-2022 Albumin/Globulin [Mass ratio] 1.0 {ratio} 0.9-2.4 [facility] Serum or plasma calcium dylon urement (mass/volume)Ordered By: Sharron Cooper on 08-20-2022 Calcium [Mass/Vol] 8.9 mg/dL 8.5-10.1 [facility] Serum or plasma cholesterol in HDL measurement (mass/volume)Ordered By: Sharron Cooper on 08-20-2022 Cholesterol in HDL [Mass/Vol] 50 mg/dL >40 [facility] Comment on above: The drugs N-Acetylcy steine and Metamizole may falsely depress this assay. Reference Range HDL <40 mg/dL Low HDL Cholesterol HDL >or= 60 mg/dL High HDL Cholesterol Serum or plasma cholesterol in VLDL measurement (mass/volume)Ordered By: Sharron Cooper on 08-20-2022 Cholesterol in VLDL [Mass/Vol] 37 mg/dL 5-40 [facility] Serum or plasma creatinine m easurement (mass/volume)Ordered By: Sharron Cooper on 08-20-2022 Creatinine [Mass/Vol] 0.73 mg/dL 0.55-1.02 [facility] Comment on above: The validity of the calculated GFR & GFRAA in patients over 70 years has not been determined. Clinical correlation is essential. Serum or plasma low density lipoprotein (LDL) cholesterol measurement (mass/volume)Ordered By: Sharron Cooper on 08-20-2022 Cholesterol in LDL [Mass/Vol] 188 mg/dL 0-130 [facility] Serum or plasma urea nitroge n measurement (mass/volume)Ordered By: Sharron Cooper on 08-20-2022 Urea nitrogen [Mass/Vol] 12 mg/dL 7-18 [facility] Thin prep Papanicolaou smear with manual screeningOrdered By: Sharron Cooper on 08-20-2022 Thin prep Papanicolaou smear with manual screening 18 U/L 15-37 [facility] Thin prep Papanicolaou smear with manual screening 8 5-15 [facility] Cervical or vagninal specime n microscopic examination by cytology stain (reported ason 01-03-2022 Cytology report Cyto stain Doc (Cvx/Vag) Comment . [facility] Work Phone: Comment on above: The Pap smear is a s creening test designed to aid in thedetection of premalignant and malignant conditions of theuterine cervix. It is not a diagnostic procedure andshould not be used as the sole means of detecting cervicalcancer. Both false-positive and false-negative reports dooccur. Detection in cervical specim en of any of human papilloma virus (HPV) 16, 18, 31, 33,on 01-03-2022 HPV 16+18+31+33+35+39+45+5 1+52+56+58+59+66+68 DNA Probe+sig amp Ql (Cvx) Negative Negative [facility] Work Phone: Comment on above: This nucleic acid am plification test detects fourteen high- risk HPV types (16,18,31,33,35,39,45,51,52,56,58,59,66,68)without differentiation.Performed at: [facility] [id number] Director: Misty Kumar MD, Phone: [phone] at: =G - [facility] [address] [id number] Director: Misty Kumar MD, Phone: [phone] Laboratory - Cytologyon 12-16 Meteorology Professor Cyto stain Nom (Cvx/Vag) [ID] Comment . [facility] Work Phone: Comment on above: Mayra Robbins, Cyto technologist (ASCP) Laboratory - Miscellaneous t estson 01-03-2022 Service comment (Unsp spec) [Interp] Comment . [facility] Work Phone: Comment on above: This liquid based Th inPrep(R) pap test was screened withthe use of an image guided system. Service comment (Unsp spec) [Interp] . . [facility] Work Phone: No Panel Informationon 01-03 Pathology report final diagnosis Narrative Comment . [facility] Work Phone: Comment on above: NEGATIVE FOR INTRAEP ITHELIAL LESION OR MALIGNANCY. Miscellaneous Test Comment MAILED SPECIMEN [facility] Work Phone: Absolute lymphocyte counton 10-10-2021 Lymphocytes Auto (Unsp spec) [#/Vol] 1.88 10*3/uL 0.83-4.51 [facility] Work Phone: Basophil percentageon 2021 Basophil percentage 0-5 SEEN /hpf 0-5 [facility] Work Phone: Basophils/100 WBC (Bld) 0.3 % 0-1 [facility] Work Phone: [phone] Bilirubin [Mass/Vol] 0.60 mg/dL 0.20-1.00 [facility] Work Phone: Comment on above: For patients on eltr ombopag therapy, use of Dimension [place] TBIL is not recommended. Chloride [Moles/Vol] 101 mmol/L 98-107 [facility] Work Phone: Eosinophils/100 WBC (Bld) 0.5 % 0-5 [facility] Work Phone: Glucose [Mass/Vol] 104 mg/dL 74-106 [facility] Work Phone: Comment on above: Fasting Glucose resu lt from 100 to 125 mg/dL suggests IMPAIRED HOMEOSTASIS per A.D.A. criteria. Neutrophils (Bld) [#/Vol] 13.4 10*3/uL 2.0-7.7 [facility] Work Phone: Neutrophils/100 WBC (Bld) 80.4 % 47-70 [facility] Work Phone: Potassium [Moles/Vol] 3.6 mmol/L 3.5-5.1 [facility] Work Phone: Protein [Mass/Vol] 7.8 g/dL 6.4-8.2 [facility] Work Phone: Sodium [Moles/Vol] 137 mmol/L 136-145 [facility] Work Phone: WBC (Bld) [#/Vol] 16.7 10*3/uL 4.4-11.0 [facility] Work Phone: Bilirubin Test strip Ql (U)o n 10-10-2021 Bilirubin Ql (U) Negative Negative [facility] Work Phone: Blood erythrocytes count (nu mber/volume)on 10-10-2021 RBC (Bld) [#/Vol] 4.18 10*6/uL 4.2-5.4 [facility] Work Phone: Blood hemoglobin measurement (mass/volume)on 10-10-2021 Hemoglobin (Bld) [Mass/Vol] 13.0 g/dL 12.0-15.0 [facility] Work Phone: Blood lymphocytes/100 leukoc yteson 10-10-2021 Lymphocytes/100 WBC (Bld) 11.2 % 19-41 [facility] Work Phone: Blood monocytes/100 leukocyt eson 10-10-2021 Monocytes/100 WBC (Bld) 7.1 % 0-10 [facility] Work Phone: Blood platelet mean volumeon 10-10-2021 Platelet mean volume (Bld) [Entitic vol] 9.1 fL 6.2-12.0 [facility] Work Phone: Culture, urineon 10-10-2021 Bacteria identified Cx Nom (U) Mixed Gram Pos & Gram Neg Org [facility] Work Phone: Determination of erythrocyte mean corpuscular volume (MCV)on 10-10-2021 MCV (RBC) [Entitic vol] 92.8 fL 81-99 [facility] Work Phone: Erythrocyte sedimentation ra car 10-10-2021 ESR (Bld) [Velocity] 29 mm/h 0-30 [facility] Work Phone: Hematocrit Auto (Bld) [Volum e fraction]on 10-10-2021 Hematocrit (Bld) [Volume fraction] 38.8 % 37-47 [facility] Work Phone: Ketones Test strip Ql (U)on 10-10-2021 Ketones Ql (U) 50 mg/dl Negative [facility] Work Phone: Laboratory - Chemistry and C hemistry - challengeon 10-10-2021 ALP [Catalytic activity/Vol] 160 U/L 45-117 [facility] Work Phone: ALT [Catalytic activity/Vol] 58 U/L 13-56 [facility] Work Phone: CO2 [Moles/Vol] 28.0 mmol/L 21.0-32.0 [facility] Work Phone: Globulin (S) [Mass/Vol] 4.4 g/dL 2.2-4.2 [facility] Work Phone: [phone] Urea nitrogen/Creatinine [Mass ratio] 7.7 mg/mg 10-20 [facility] Work Phone: [phone] Laboratory - Hematology and Cell countson 10-10-2021 Erythrocyte distribution width (RBC) [Entitic vol] 41.4 fL 35.1-43.9 [facility] Work Phone: [phone] Erythrocyte distribution width (RBC) [Ratio] 12.2 % 11.6-14.6 [facility] Work Phone: [phone] Immature granulocytes/100 WBC (Bld) 0.500 % 0.0-0.9 [facility] Work Phone: [phone] Comment on above: IG% - Immature Granu locytes (promyelocytes, myelocytes and metamyelocytes) > 1% indicates that a LEFT SHIFT is Present. MCH (RBC) [Entitic mass] 31.1 pg 27.0-32.0 [facility] Work Phone: [phone] Nucleated RBC/100 WBC (Bld) [Ratio] 0 % 0-5 [facility] Work Phone: [phone] MCHC Auto (RBC) [Mass/Vol]on 10-10-2021 MCHC (RBC) [Mass/Vol] 33.5 g/dL 32-36 [facility] Work Phone: [phone] Mucus LM Ql (Urine sed)on Mucus Ql (Urine sed) 0 SEEN /hpf [facility] Work Phone: [phone] Nitrite Test strip Ql (U)on 10-10-2021 Nitrite Ql (U) Negative Negative [facility] Work Phone: [phone] Panel Informationon 10-10 Estimated GFR (MDRD) Amer 103 mL/min >60 [facility] Work Phone: [phone] Comment on above: GFR Calc Estimated GFR (MDRD) Non-Af Amer 85 mL/min >60 [facility] Work Phone: [phone] Comment on above: Non- GFR Calc Platelets bldon 10-10-2021 Platelets (Bld) [#/Vol] 447 10*3/uL 150-450 [facility] Work Phone: [phone] Protein Test strip Ql (U)on 10-10-2021 Protein Ql (U) 15 mg/dl Negative [facility] Work Phone: [phone] Serum or plasma albumin dylon urement (mass/volume)on 10-10-2021 Albumin [Mass/Vol] 3.4 g/dL 3.2-5.0 [facility] Work Phone: [phone] Serum or plasma albumin/glob ulin mass ratioon 10-10-2021 Albumin/Globulin [Mass ratio] 0.8 {ratio} 0.9-2.4 [facility] Work Phone: [phone] Serum or plasma calcium dylon urement (mass/volume)on 10-10-2021 Calcium [Mass/Vol] 9.1 mg/dL 8.5-10.1 [facility] Work Phone: [phone] Serum or plasma creatinine m easurement (mass/volume)on 10-10-2021 Creatinine [Mass/Vol] 0.78 mg/dL 0.55-1.02 [facility] Work Phone: Comment on above: The validity of the calculated GFR & GFRAA in patients over 70 years has not been determined. Clinical correlation is essential. Serum or plasma urea nitroge n measurement (mass/volume)on 10-10-2021 Urea nitrogen [Mass/Vol] 6 mg/dL 7-18 [facility] Work Phone: [phone] Squamous epithelial cells de tection in urine sediment by light microscopyon 10-10-2021 Epithelial cells.squamous LM Ql (Urine sed) 0-5 SEEN /hpf 5-10 [facility] Work Phone: [phone] Thin prep Papanicolaou smear with manual screeningon 10-10-2021 Thin prep Papanicolaou smear with manual screening 31 U/L 15-37 [facility] Work Phone: [phone] Thin prep Papanicolaou smear with manual screening 8 5-15 [facility] Work Phone: Urine blood detectionon 09-16 RBC Ql (U) 10 /ul Negative [facility] Work Phone: [phone] RBC Ql (U) 0-5 SEEN /hpf 0-5 [facility] Work Phone: [phone] Urine clarityon 10-10-2021 Clarity (U) Sl. Cloudy Clear [facility] Work Phone: Urine color determinationon 10-10-2021 Color (U) Yellow Yellow [facility] Work Phone: [phone] Urine glucose detectionon Glucose Ql (U) Normal mg/dl Normal [facility] Work Phone: [phone] Urine leukocyte esterase det ection by dipstickon 10-10-2021 Leukocyte esterase Test strip Ql (U) 500 /ul Negative [facility] Work Phone: [phone] Urine pHon 10-10-2021 pH (U) 7.0 [pH] 5.0 - 8.0 [facility] Work Phone: Urine sediment bacteria coun t by microscopy (number/high power field)on 10-10-2021 Bacteria LM.HPF (Urine sed) [#/Area] RARE /hpf None Seen [facility] Work Phone: Urine specific gravity measu rementon 10-10-2021 Specific gravity (U) [Rel density] 1.010 1.002-1.030 [facility] Work Phone: Urobilinogen Auto test strip Ql (U)on 10-10-2021 Urobilinogen Ql (U) 1 mg/dl Normal [facility] Work Phone: Basophil percentageon 2021 Bilirubin [Mass/Vol] 0.40 mg/dL 0.20-1.00 [facility] Work Phone: Comment on above: For patients on eltr ombopag therapy, use of Dimension [place] TBIL is not recommended. Chloride [Moles/Vol] 106 mmol/L 98-107 [facility] Work Phone: Cholesterol [Mass/Vol] 261 mg/dL <200 [facility] Work Phone: [phone] Comment on above: <200 mg/dL Desirable 200-240 mg/dL Borderline >240 mg/dL High Risk Glucose [Mass/Vol] 95 mg/dL 74-106 [facility] Work Phone: [phone] Potassium [Moles/Vol] 4.3 mmol/L 3.5-5.1 [facility] Work Phone: [phone] Protein [Mass/Vol] 7.2 g/dL 6.4-8.2 [facility] Work Phone: [phone] Sodium [Moles/Vol] 137 mmol/L 136-145 [facility] Work Phone: [phone] Triglyceride [Mass/Vol] 291 mg/dL <199 [facility] Work Phone: [phone] Comment on above: The drugs N-Acetylcy steine and Metamizole may falsely depress this assay.Serum Triglycerides Reference Interval Normal <150 mg/dL Borderline high 150 - 199 mg/dL High 200 - 499 mg/dL Very High > or = 500 mg/dL Laboratory - Chemistry and C hemistry - challengeon 08-30-2021 ALP [Catalytic activity/Vol] 97 U/L 45-117 [facility] Work Phone: [phone] ALT [Catalytic activity/Vol] 42 U/L 13-56 [facility] Work Phone: [phone] CO2 [Moles/Vol] 28.0 mmol/L 21.0-32.0 [facility] Work Phone: [phone] Globulin (S) [Mass/Vol] 3.6 g/dL 2.2-4.2 [facility] Work Phone: [phone] Urea nitrogen/Creatinine [Mass ratio] 13.9 mg/mg 10-20 [facility] Work Phone: [phone] No Panel Informationon 08-30 Estimated GFR (MDRD) Amer 112 mL/min >60 [facility] Work Phone: [phone] Comment on above: GFR Calc Estimated GFR (MDRD) Non-Af Amer 93 mL/min >60 [facility] Work Phone: Comment on above: Non- GFR Calc Thyroid Stimulating Hormone (TSH) 1.94 uIU/mL 0.358-3.74 [facility] Work Phone: Serum or plasma albumin dylon urement (mass/volume)on 08-30-2021 Albumin [Mass/Vol] 3.6 g/dL 3.2-5.0 [facility] Work Phone: Serum or plasma albumin/glob ulin mass ratioon 08-30-2021 Albumin/Globulin [Mass ratio] 1.0 {ratio} 0.9-2.4 [facility] Work Phone: Serum or plasma calcium dylon urement (mass/volume)on 08-30-2021 Calcium [Mass/Vol] 8.6 mg/dL 8.5-10.1 [facility] Work Phone: Serum or plasma cholesterol in HDL measurement (mass/volume)on 08-30-2021 Cholesterol in HDL [Mass/Vol] 46 mg/dL >40 [facility] Work Phone: Comment on above: The drugs N-Acetylcy steine and Metamizole may falsely depress this assay. Reference Range HDL <40 mg/dL Low HDL Cholesterol HDL >or= 60 mg/dL High HDL Cholesterol Serum or plasma cholesterol in VLDL measurement (mass/volume)on 08-30-2021 Cholesterol in VLDL [Mass/Vol] 58 mg/dL 5-40 [facility] Work Phone: [phone] Serum or plasma creatinine m easurement (mass/volume)on 08-30-2021 Creatinine [Mass/Vol] 0.72 mg/dL 0.55-1.02 [facility] Work Phone: Comment on above: The validity of the calculated GFR & GFRAA in patients over 70 years has not been determined. Clinical correlation is essential. Serum or plasma low density lipoprotein (LDL) cholesterol measurement (mass/volume)on 08-30-2021 Cholesterol in LDL [Mass/Vol] 157 mg/dL 0-130 [facility] Work Phone: Serum or plasma severe acute respiratory syndrome coronavirus 2 (SARS-CoV-2) IgG antion 08-30-2021 SARS-CoV-2 (COVID-19) IgG IA Ql 32.41 INDEX 0.00-0.99 [facility] Work Phone: Comment on above: It is yet undetermin ed what level of antibody to SARS-CoV-2 spike protein correlates to immunity against developing symptomatic SARS-CoV-2 disease. Studies are underway to measure the quantitative levels of specific SARS-CoV-2 antibodies following vaccination. Such studies will provide valuable insights into the correlation between protection from vaccination and antibody levels. Interpretation: Negative < 1.0 Positive > or = 1.0Method: Havsjo Delikatesser IM SARS SEMI-QUANT IGG ABS * This test has not been reviewed by the FDA* Use of this test is limited to laboratories that are certified under Clinical Laboratory Improvement Amendments of 1988 (CLIA) to perform high-complexity testing.* Negative results do not preclude acute SARS-CoV-2 infection. If acute infection is suspected, direct testing for SARS-CoV-2 is necessary.* Results from antibody testing should not be used to diagnose or exclude acute SARS-CoV-2 infection.* Positive results may be due to past or present infection with [id number] coronovirus strains, such as coronavirus HKU1, NL63, OC43, or 229E. Serum or plasma urea nitroge n measurement (mass/volume)on 08-30-2021 Urea nitrogen [Mass/Vol] 10 mg/dL 7-18 [facility] Work Phone: Thin prep Papanicolaou smear with manual screeningon 08-30-2021 Thin prep Papanicolaou smear with manual screening 19 U/L 15-37 [facility] Work Phone: Thin prep Papanicolaou smear with manual screening 3 5-15 [facility] Work Phone: Office Visit: chronic cougho n 04-06-2017 Documentation of current medications (procedure) Done Invalid Interpretation Code [facility] Work Phone: Tobacco smoking status NHIS Never Invalid Interpretation Code [facility] Work Phone: Tobacco use [facility] Never smoker Invalid Interpretation Code [facility] Work Phone: Rx Refill: eRx Request for D YMISTA NASAL SPRAYon 03-18-2017 [id number]`DYMISTA NASAL SPRAY```[address] [place]`30`USE ONE SPRAY IN EACH NOSTRIL TWICE DAILY``7`0` 7`02/18/2017`[facility]*`[id number]` [id number]``DYMISTA NASAL SPRAY Quantity: [address] [place] Instructions: USE ONE SPRAY IN EACH NOSTRIL TWICE DAILY Better [facility] Work Phone: Office Visit: chronic cougho n 10-01-2016 Documentation of current medications (procedure) Done Invalid Interpretation Code [facility] Work Phone: Tobacco smoking status VTIS Never Invalid Interpretation Code [facility] Work Phone: Tobacco use [facility] Never smoker Invalid Interpretation Code [facility] Work Phone: Lab Report: Allergens, Zone 8on 07-31-2016 RAST COMMENT Comment Invalid Interpretation Code . [facility] Work Phone: Culture, urine Bacteria identified Cx Nom (U) Mixed Gram Pos & Gram Neg Org [facility] Work Phone: Vital Signs Date Time Vital Sign Value Performing Clinician Facility 04-29-2023 07:17-0500 Body height 167.[address] Fransico Kennedy Work Phone: [facility] 04-29-2023 07:17-0500 Body mass index (BMI) [Ratio] 39.4 kg/m2 Dr. Fransico Kennedy Work Phone: [facility] 04-29-2023 07:17-0500 Body temperature 97.2 [degF] Dr. Fransico Kennedy Work Phone: [facility] 04-29-2023 07:17-0500 Body weight 110.[address] Fransico Kennedy Work Phone: [facility] 04-29-2023 07:17-0500 Diastolic blood pressure 72 mm[Hg] Dr. Fransico Kennedy Work Phone: [facility] 04-29-2023 07:17-0500 Heart rate 81 /min Dr. Fransico Kennedy Work Phone: [facility] 04-29-2023 07:17-0500 Respiratory rate 18 /min Dr. Fransico Kennedy Work Phone: [facility] 04-29-2023 07:17-0500 SaO2% (BldA) [Mass fraction] 97 % Dr. Fransico Kennedy Work Phone: [facility] 04-29-2023 07:17-0500 Systolic blood pressure 120 mm[Hg] Dr. Fransico Kennedy Work Phone: [facility] 03-11-2023 09:24-0400 Body height 167.6 cm Shahida Dumas MD Work Phone: [facility] 03-11-2023 09:24-0400 Body weight 108.86 kg Shahida Dumas MD Work Phone: [facility] 01-14-2023 08:25-0400 Body height 167.[address] Fransico Kennedy Work Phone: [facility] 01-14-2023 08:25-0400 Body mass index (BMI) [Ratio] 38.9 kg/m2 Dr. Fransico Kennedy Work Phone: [facility] 01-14-2023 08:25-0400 Body weight 109.[address] Fransico Kennedy Work Phone: [facility] 01-14-2023 08:25-0400 Diastolic blood pressure 93 mm[Hg] Dr. Fransico Kennedy Work Phone: [facility] 01-14-2023 08:25-0400 Systolic blood pressure 139 mm[Hg] Dr. Fransico Kennedy Work Phone: [facility] 01-03-2022 11:32-0400 Body height 167.[address] Fransico Kennedy Work Phone: [facility] Work Phone: 01-03-2022 11:32-0400 Body mass index (BMI) [Ratio] 41.7 kg/m2 Dr. Fransico Kennedy Work Phone: [facility] Work Phone: 01-03-2022 11:32-0400 Body weight 117.[address] Fransico Kennedy Work Phone: [facility] Work Phone: 01-03-2022 11:32-0400 Diastolic blood pressure 90 mm[Hg] Dr. Fransico Kennedy Work Phone: [facility] Work Phone: 01-03-2022 11:32-0400 Systolic blood pressure 128 mm[Hg] Dr. Fransico Kennedy Work Phone: [facility] Work Phone: 04-06-2017 07:13-0500 BMI (Body Mass Index) 40.4 kg/m2 Joslyn Strange LPN [facility] Work Phone: 04-06-2017 07:13-0500 Body Temperature 99.7 [degF] Joslyn Fabianho DIRECTOR OF TRANSPORTATION [facility] Work Phone: 04-06-2017 07:13-0500 BP Diastolic 83 mm[Hg] Joslyn Fabianho DIRECTOR OF TRANSPORTATION [facility] Work Phone: 04-06-2017 07:13-0500 BP Systolic 135 mm[Hg] Joslyn Yensho DIRECTOR OF TRANSPORTATION [facility] Work Phone: 04-06-2017 07:13-0500 Height 170.18 cm Joslyn Fabianho DIRECTOR OF TRANSPORTATION [facility] Work Phone: 04-06-2017 07:13-0500 Pulse (Heart Rate) 88 /min Joslyn Strange LPN [facility] Work Phone: 04-06-2017 07:13-0500 Respiratory Rate 18 /min Joslyn Strange LPN [facility] Work Phone: 04-06-2017 07:13-0500 Weight 117.03 kg Joslyn Strange LPN [facility] Work Phone: 10-01-2016 07:47-0400 BMI (Body Mass Index) 39.15 kg/m2 Socorro Quiles CNP [facility] Phone: 10-01-2016 07:47-0400 Body Temperature 97.6 [degF] Socorro Quiles CNP [facility] Phone: 10-01-2016 07:47-0400 BP Diastolic 84 mm[Hg] Socorro Quiles CNP [facility] Work Phone: 10-01-2016 07:47-0400 BP Systolic 124 mm[Hg] Socorro Quiles CNP [facility] Work Phone: 10-01-2016 07:47-0400 Height 170.18 cm Socorro Quiles CNP [facility] Work Phone: 10-01-2016 07:47-0400 Pulse (Heart Rate) 69 /min Socorro Quiles CNP [facility] Work Phone: 10-01-2016 07:47-0400 Respiratory Rate 18 /min Socorro Quiles CNP [facility] Work Phone: 10-01-2016 07:47-0400 Weight 113.4 kg Socorro Quiles CNP [facility] Work Phone: 07-08-2016 07:59-0500 Body Temperature 98.78 [degF] Socorro Quiles CNP [facility] Work Phone: 07-08-2016 07:59-0500 BSA (Body Surface Area) 2.23 m2 Socorro Quiles CNP [facility] Work Phone: 07-08-2016 07:59-0500 Height 170.18 cm Socorro Quiles CNP [facility] Work Phone: 07-08-2016 07:59-0500 Weight 114.09 kg Socorro Quiles CNP [facility] Work Phone: Encounters Encounter Date Encounter Type Care Provider Facility Start: 12-19-2024 [facility] Start: 09-13-2024 End: 09-13-2024 ambulatory [facility] Facility:[facility] Start: 09-13-2024 End: 09-13-2024 ambulatory [facility] Facility:[facility] Start: 07-08-2024 End: 07-08-2024 ambulatory Kelsey Kennedy Facility:[facility] Start: 04-28-2024 End: 04-28-2024 ambulatory Kelsey Kennedy Facility:[facility] Start: 01-19-2024 End: 01-19-2024 ambulatory Keely Carpio Facility:[facility] Start: 07-22-2023 End: 07-22-[address] Fransico Kennedy Work Phone: [facility] Work Phone: Start: 07-22-2023 End: 07-22-[address] Fransico Kennedy Work Phone: [facility] Work Phone: Start: 04-29-2023 End: 04-29-[address] Fransico Kennedy Work Phone: [facility] Work Phone: Start: 04-07-2023 End: 04-07-[address] Fransico Kennedy Work Phone: [facility] Work Phone: Start: 04-07-2023 End: 04-07-[address] Fransico Kennedy Work Phone: [facility] Work Phone: Start: 03-31-2023 End: 03-31-[address] Fransico Kennedy Work Phone: [facility] Work Phone: Start: 03-31-2023 End: 03-31-[address] [facility] Start: 03-19-2023 End: 03-19-2023 ambulatory [facility] Facility:[facility] Start: 03-11-2023 ambulatory Shahida joel MD Work Phone: [facility] Start: 02-05-2023 End: 02-06-2023 ambulatory [facility] Facility:[facility] Start: 02-02-2023 End: 02-02-[address] Fransico Kennedy Work Phone: [facility] Work Phone: Start: 02-02-2023 End: 02-02-[address] Fransico Kennedy [facility] Phone[facility] Start: 01-14-2023 End: 01-14-[address] Fransico Kennedy Work Phone: [facility] [place] Work Phone: Start: 01-05-2023 End: 01-05-2023 ambulatory [facility] Work Phone: Start: 01-05-2023 End: 01-05-2023 [facility] Start: 12-08-2022 End: 12-08-2022 ambulatory [facility] Work Phone: Start: 12-08-2022 End: 12-08-2022 Patient encounter procedure [facility] Work Phone: Start: 11-21-2022 End: 11-21-2022 ambulatory [facility] Work Phone: Start: 11-21-2022 End: 11-21-2022 Patient encounter procedure [facility] Work Phone: Start: 09-30-2022 End: 09-30-2022 Patient encounter procedure [facility] Work Phone: Start: 08-20-2022 End: 08-20-2022 Patient encounter procedure [facility] Work Phone: Start: 01-24-2022 End: 01-24-[address] Fransico Kennedy Work Phone: [facility] Work Phone: Start: 01-24-2022 End: 01-24-[address] Fransico Kennedy [facility] Start: 01-03-2022 End: 01-03-[address] Fransico Kennedy Work Phone: [facility] Work Phone: Start: 01-03-2022 End: 01-03-[address] Fransico Kennedy Work Phone: [facility] Start: 01-03-2022 End: 01-03-[address] Fransico Kennedy Work Phone: [facility] [place] Start: 11-22-2021 End: 11-22-2021 Patient encounter procedure [facility] Start: 10-10-2021 End: 10-10-2021 Patient encounter procedure [facility], [facility] Start: 10-10-2021 End: 10-10-2021 [facility] Start: 08-30-2021 End: 08-30-2021 Patient encounter procedure [facility] Start: 11-26-2020 End: 11-26-2020 ambulatory [employer]- [facility] Start: 09-13-2012 End: 09-13-2012 Refill Randal Kebede MD Work Phone: [facility] [place] Comment on above: Refill Request Start: 01-22-2011 Patient encounter status Randal Kebede MD Work Phone: [facility] Work Phone: Procedures Date Procedure Procedure Detail Performing Clinician Start: 12-08-2022 Screening mammography Start: 09-30-2022 MRI of joint of lowe r extremity Start: 01-24-[address] Nicolas Kennedy Work Phone: Start: 11-22-2021 Screening mammography Start: 10-10-2021 Computed tomography of abdomen and pelvis with contrast Start: 10-10-2021 Bacteria identified in Urine by Culture Start: 10-10-2021 Urine culture Start: 10-10-2021 Diagnostic radiograp hy of abdomen, decubitus and erect Start: 09-02-2016 End: 03-18-2017 DMB Socorro De La O GLUE MACHINE OPERATOR Work Phone: Start: 09-02-2016 End: 03-18-2017 Follow Up Appt 1 month Socorro marie CNP Work Phone: Start: 07-25-2016 End: 07-31-2016 *[id number] [place], [place] [id number] Socorro Quiles CNP Work Phone: Start: 07-08-2016 End: 07-08-2016 Chest x-ray Socorro De La O GLUE MACHINE OPERATOR Work Phone: Start: 07-08-2016 End: 07-08-2016 [facility] Socorro De La O GLUE MACHINE OPERATOR Work Phone: Start: 07-08-2016 End: 07-08-2016 Follow Up Appt 2 weeks Socorro marie CNP Work Phone: Start: 12-02-2011 Lipid 1996 panel - S desire or Plasma Shahida Dumas MD Work Phone: Bacteria identified in Urine by Culture Urine culture Plan of Treatment Date Care Activity Detail Author Start: 02-14-2031 Urine microalbumin profile DTaP,Tdap,Td Vaccine (2 - Td or Tdap) [facility] Start: 01-16-2023 [facility]enza [facility] Start: 05-18-2022 Depression Assessment Depression Assessment [facility] Start: 01-03-2022 Liquid based cervical cytology screening [facility] Work Phone: Start: 01-16-2021 Influenza vaccination INFLUENZA (Season Ended) [facility] Start: 08-23-2020 Cologuard (FIT-DNA) Cologuard (FIT-DNA) [facility] Start: 08-23-2020 Colonoscopy Colonoscopy [facility] Start: 08-23-2020 Colorectal Cancer Screening Colorectal Cancer Screening [facility] Start: 08-23-[address] Colonography [facility] Start: 08-23-2020 DIABETES SCREEN DIABETES SCREEN [facility] Start: 08-23-2020 Diabetes Screening Diabetes Screening [facility] Start: 08-23-2020 Fecal Occult Blood Fecal Occult Blood [facility] Start: 08-23-2020 Lipid 1996 panel - Serum or Plasma Lipid Screening [facility] Start: 08-23-2020 LIPID SCREEN LIPID SCREEN [facility] Start: 08-23-2020 Sigmoidoscopy Sigmoidoscopy [facility] Start: 10-05-2017 End: 10-05-2017 Appointment Appointment [facility] Work Phone: Start: 04-06-2017 End: 04-06-2017 [facility] Work Phone: Start: 04-06-2017 End: 04-06-2017 Follow Up Appt 6 months Follow Up Appt 6 months [facility] Work Phone: Start: 04-06-2017 End: 04-06-2017 Appointment Appointment [facility] Work Phone: Start: 10-01-2016 End: 10-01-2016 [facility] Work Phone: Start: 10-01-2016 End: 10-01-2016 Follow Up Appt 6 months Follow Up Appt 6 months [facility] Work Phone: Start: 09-02-2016 End: 03-18-2017 DMB D[facility] Work Phone: Start: 09-02-2016 End: 03-18-2017 Follow Up Appt 1 month Follow Up Appt 1 month [facility] Work Phone: Start: 07-25-2016 End: 07-31-2016 *[id number] Allergens,[id number] *[id number] Allergens,[id number] [facility] Work Phone: Start: 07-08-2016 End: 07-08-2016 Chest x-ray X-Ray, Chest, PA & Lateral [facility] Work Phone: Start: 07-08-2016 End: 07-08-[address] [facility] [place] Work Phone: Start: 07-08-2016 End: 07-08-2016 Follow Up Appt 2 weeks Follow Up Appt 2 weeks [facility] Work Phone: Start: 05-28-2016 End: 05-28-2016 Ct thorax w/o contrast material CT Chest without contrast [facility] Work Phone: Start: 05-28-2016 End: 05-28-2016 DMB DMB [facility] Work Phone: Start: 05-28-2016 End: 05-28-2016 Follow Up Appt 6 weeks Follow Up Appt 6 weeks [facility] Work Phone: Start: 05-28-2016 End: 05-28-2016 Pulmonary Function Test - complete Pulmonary Function Test - complete [facility] Work Phone: Start: 05-09-2016 PAP TESTING PAP TESTING [facility] Start: [address] [facility] Start: 08-23-2005 HPV TESTING HPV TESTING [facility] Start: 08-23-1994 Urine microalbumin profile DTAP,TDAP,TD (1 - Tdap) [facility] Start: 08-23-1993 Annual PCP Team Chronic Disease Visit Annual PCP Team Chronic Disease Visit [facility] Start: 08-23-1993 HEPATITIS C SCREENING HEPATITIS C SCREENING [facility] Start: 08-23-1993 HIV SCREENING HIV SCREENING [facility] Start: 1987 Adult depression screening assessment DEPRESSION SCREENING [facility] Start: 02-23-1976 Covid-19 Vaccine (#1) Covid-19 Vaccine (#1) [facility] Start: 1975 Hepatitis B Vaccine (1 of 3 - 3-dose series) Hepatitis B Vaccine (1 of 3 - 3-dose series) [facility] Path report.final Dx Spec [facility] Work Phone: [facility] Payers Date Payer Category Payer Self-pay [id number] [id number] [id number] [address] [facility] U[employer] CHOICE PLUS [id number] 2022-Present [phone] [address] [address] [place] [address] HMO [id number] 2022 Unknown [id number] 2016 Unknown [id number] 2010 Private Health Insurance [employer] A ETNA CHOICE POS II [id number] 2010-2015 POS [id number] Private Health Insurance [id number] Unknown [id number] Unknown [id number] Unknown [id number] Unknown [id number] Unknown [id number] Unknown [id number] Unknown [id number] Social History Date Type Detail Facility Start: 01-22-2011 End: 03-24-2012 Tobacco smoking status VTIS Never smoker [facility] Work Phone: Start: 03-24-2012 End: 03-11-2023 Alcohol intake Current drinker of alcohol (finding) [facility] Start: 01-22-2011 Alcohol Comment ocassionally [facility] Start: 1975 Sex Assigned At Not on file C [facility] Start: 05-03-2021 End: 04-29-2023 Tobacco smoking status VTIS Unknown if ever smoked [facility] Start: 1975 Sex Assigned At Female [facility] Start: 02-05-2023 End: 03-11-2023 History of Social function [facility] Start: 02-05-2023 End: 03-11-2023 Tobacco use panel [facility] National Score (1-10 0), lower number is lower risk [address] [facility] Start: 02-04-2023 Gender identity Identifies as female gender (finding) [facility] Start: 02-04-2023 Sexual orientation Heterosexual (fin ding) [facility] Nurse Note 03-11-2023 Estrellita Velazquez RN - 03/11/2023 9:36 AM EDT Note Date & Type Note Facility 03-11-2023 Nurse Note Images from the original note were not included. Pre-Procedure Checklist Emilee Genao [phone] (home) 1975 47 year old Body mass index is 38.74 kg/m . Wt 240 lb ht 5f 6in Allergies: Penicillins Hives Procedure: colonoscopy Date of Procedure: 03/19/23 Smoke: No Alcohol: Yes Street Drugs: No Diabetic: No Insulin: No Problems with Anesthesia (Self or Family?) No Trigonometry Teacher: None Saw operating room assistant in the last 6 months? No Recent EKG/Cardiac Testing: No Chest pain in the last 6 months (<6 months cardiac clearance needed): No History of: Heart Attack/Stroke/Blood Clot?: patient denies Shortness of Breath: No Asthma:No- hx bronchitis Inhalers: Yes Any Outstanding Consults?: No If yes, list: N/A Additional Notes:Pre-op urine HCG needed documented in this encounter [facility] Progress note 02-05-2023 Note Date & Type Note Facility 02-05-2023 Note HNO ID: [id number] Author: Shea Hyde PA-C Service: ? Author Type: Physician Director Of Loss Prevention Type: Progress Notes Filed: 02/17/2023 12:38 PM Note Text: HISTORY AND PHYSICAL Emilee Genao 1975 REFERRING PHYSICIAN: No ref. provider found CHIEF COMPLAINT: Consult (Colonoscopy, no prior colonoscopy, pcp referral/) HPI: The patient is a 47 year old female referred for endoscopy. Emilee notes no colon complaints currently. NOTES several [...] The patient notes no upper GI complaints. Emilee has not undergone prior endoscopy. PAST MEDICAL HISTORY Diagnosis Date Diverticulitis Fibromyalgia GERD (gastroesophageal reflux disease) Hypothyroidism PAST SURGICAL HISTORY Procedure Laterality Date PAST SURGICAL HISTORY OF 05/18/2010 Ablation, tubal ([facility]) PAST SURGICAL HISTORY OF 05/18/2002 PAST SURGICAL [...] entered by the nurse and reviewed by sd Nursing Notes: Zamzam BhattLEIGHANN 02/05/2023 3:06 PM Signed REVIEW OF SYSTEMS: [...] the PFSH and ROS obtained by others. Shea Hyde PA-C PHYSICAL EXAMINATION: General: The patient is 47 year old female, well nourished, well hydrated in no acute distress. The patient is oriented to time, place, and person. VITALS: Blood pressure 118/76, pulse 82, temperature 36.6 ?C (97.9 ?F), he (more content not included)... [facility] Clinical Note 01-03-2022 Note Date & Type Note Facility 01-03-2022 Note [facility] Work Phone: Pap Smear Specimen Adequacy January 03, 2022 1:41pm Comment . Satisfactory for evaluation. Endocervical and/or squamous metaplasticcells (endocervical component) are present. Comment on above: Satisfactory for pelon luation. Endocervical and/or squamous metaplasticcells (endocervical component) are present. Note 09-13-2012 Telephone Encounter - Jessy Maria [...] appt October 2011 documented in this encounter [facility] Evaluation note Note Date & Type Note Facility Evaluation note Diagnosis Hypothyroidism- Primary Unspecified hypothyroidism documented in this encounter [facility] Evaluation note Note Date & Type Note Facility Evaluation note No assessment information availa ble [facility] Work Phone: Evaluation note Note Date & Type Note Facility Evaluation note Diagnosis Onset Date Endometriosis chronic Encounter for routine gyneco logical examination noneactive [facility] Work Phone: Evaluation note Note Date & Type Note Facility Evaluation note Diagnosis Onset Date Encounter for routine gyneco logical examination noneactive [facility] Work Phone: Evaluation note Note Date & Type Note Facility Evaluation note Diagnosis Onset Date Endometriosis chronic Thyroid dysfunction chronic History of endometrial ablation resolved Encounter for routine gyneco logical examination noneactive [facility] Work Phone: Evaluation note Note Date & Type Note Facility Evaluation note Diagnosis Onset Date BMI 40.0-44.9, adult acute Chronic cough chronic [facility] Work Phone: Summary Purpose Family History No Family History Records Found Relationship Condition Age at Onset Recorded Date/T daphne father Malignant neoplasm Unknown mother Hypertension Unknown grandmother Malignant neoplasm Unknown Malignant neoplasm of breast Unknown Advance Directives No Advanced Directives Records FoundNo Advanced Directives Records FoundNo Advanced Directives Records FoundNo Advanced Directives Records Found Chief Complaint and Reason for Visit Chief Complaint EORDER Chief Complaint EORDER STAT RAD Unspecified abdominal pain Chief Complaint EORDER STAT RAD Unspecified abdominal pain SCREENING Chief Complaint STAT RAD Unspecified abdominal pain SCREENING 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 & 2 Reason for Visit Endometriosis Encounter for routine gynecological examination Chief Complaint STAT RAD Unspecified abdominal pain SCREENING 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 & 2 SPRAIN OF LEFT ANKLE Reason for Visit Endometriosis Encounter for routine gynecological examination Chief Complaint E ORDERS LT FOOT PLANTAR FASCIITIS Chief Complaint E ORDERS LT FOOT PLANTAR FASCIITIS SCREENING Chief Complaint LT FOOT PLANTAR FASC IITIS SCREENING E-ORDER Chief Complaint SCREENING E-ORDER 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) Reason for Visit Encounter for routin e gynecological examination Chief Complaint SCREENING E-ORDER 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) Reason for Visit Endometriosis Thyroid dysfunction History of endometrial ablation Encounter for routine gynecological examination Chief Complaint E-ORDER 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 the event this information is protected by the Federal Confidentiality of Alcohol and Drug Abuse Patient Records regulations: The Federal rules restrict any use of the information to criminally investigate or prosecute any alcohol or drug abuse patient.[facility] Reason for Visit (unrecogniz ed section and content) Reason Comments Refill Request INFORMATION SOURCE (unrecogn ized section and content) DATE CREATED AUTHOR 12/08/2020 Lloyd Salterradha [facility] DATE CREATED AUTHOR AUTHOR'S ORGANIZ ATION 02/21/2023 [facility] DATE CREATED AUTHOR AUTHOR'S ORGANIZ ATION 03/20/2023 [facility] DATE CREATED AUTHOR AUTHOR'S ORGANIZ ATION 12/17/2024 [facility] Goals (unrecognized section and content) Goals may be documented in a n alternate sectionGoals may be documented in an alternate sectionGoals may be documented in an alternate sectionGoals may be documented in an alternate sectionGoals may be documented in an alternate sectionGoals may be documented in an alternate sectionGoals may be documented in an alternate sectionGoals may be documented in an alternate sectionGoals may be documented in an alternate sectionGoals may be documented in an alternate sectionGoals may be documented in an alternate sectionGoals may be documented in an alternate sectionGoals may be documented in an alternate section Care Teams (unrecognized sec tion and content) Team Status: Active Member Role Status Dates Dr. Roberto Cano MD Family Provider Active Dr. Fransico Kennedy MD Primary Care Provider Activ e Team Status: Inactive Member Role Status Dates Dr. Fransico Kennedy MD Primary Care Provider Activ e Sharron Cooper NP-C Attending Provider, Referring Jadon payne Active Team Status: Inactive Member Role Status Dates Dr. Fransico Kennedy MD Primary Care Provider Activ e BEA HowardM Attending Provider, Referrin g Provider Active Team Status: Inactive Member Role Status Dates Dr. Fransico Kennedy MD Primary Care Provider Activ e Dr. Keely Carpio DO Attending Provider, Refe rring Provider Active Team Status: Inactive Member Role Status Dates Dr. Fransico Kennedy MD Primary Care Provider, Refe rring Provider Active Dr. Keely Carpio DO Attending Provider Activ e Team Status: Inactive Member Role Status Dates Dr. 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 Fransico Kennedy MD Primary Care Provider Activ e Dr. Mckayla Davis MD Attending Provider, Referring Provider Active Team Status: Inactive Member Role Status Dates Dr. Fransico Kennedy MD Primary Care Provider, Refe rring Provider Active Dr. Primitivo Martinze MD Attending Provider Active FOR RECORDS PERTAINING TO PATIENTS WHO ARE [...] BE BASED ON THE PRIMARY CLINICAL RECORDS. [facility] [employer] provides no warranty or guarantee of the accuracy or completeness of information in this document.
== END | disposition home or self-care (01) ==
LOC: OPBI 07:30
PROVIDERS: PCP Family Medicine; Referring Provider Obstetrics & Gynecology; Visit Provider Obstetrics & Gynecology
DX: Z12.31 Encounter for screening mammogram for malignant neoplasm of breast (principal)
CPT/HCPCS: 77063; 77067

== ENCOUNTER → 2025-04-20 | Outpatient (CLI) | payer OTHER, SELFPAY ==
[2025-04-20 09:37] LABS: Cholesterol 312 mg/dL (<=200); Glucose 93 mg/dL (70-99); Low Density Lipoprotein Calc. 214 mg/dL; Triglycerides 129 mg/dL; Very Low Density Lipoprotein 26 mg/dL (5-40); cholesterol:hdl ratio screen 4.18
[2025-04-20 09:57] LABS: Follicle Stimulating Hormone 42.6 mIU/mL; Vitamin D,25 Hydroxy 31.9 ng/mL (30-100)
== END | disposition home or self-care (01) ==
PROVIDERS: PCP Family Medicine; Referring Provider Obstetrics & Gynecology; Visit Provider Obstetrics & Gynecology
DX: Z13.220 Encounter for screening for lipoid disorders (principal); N89.8 Other specified noninflammatory disorders of vagina; Z13.1 Encounter for screening for diabetes mellitus; R53.81 Other malaise; R53.83 Other fatigue
CPT/HCPCS: 36415; 80061; 82306; 82670; 82947; 83001; 83002